=== PATIENT | male | born 1975 | race Caucasian/White ===

== ENCOUNTER 2017-01-27 06:20 | Inpatient (IN) | payer OTHER ==
[2017-01-26 11:19] VITALS: BMI 22.4
[~2017-01-27] VITALS: Ht 185.4 cm; Wt 76.2 kg
[2017-01-27] VITALS (26 sets, daily range): BP systolic 105–136; BP diastolic 56–71; PULSE 76–102; RESP 10–20; Ht 185.4 cm; Wt 76.2 kg
[~2017-01-27 06:20] MED LIST: CEFAZOLIN 2 GM/50 ML (PMX) 50 ML IVPB SCH; LACTATED RINGER'S 1,000 ML IV* SCH
[2017-01-27] MEDS ORDERED: ALPR0.5T PO (07:12)
[2017-01-27] MEDS ORDERED: TRAM50TA2 PO (07:12)
[2017-01-27] MEDS ORDERED: HYDR-3605 PO (07:12)
--- NOTE | 2017-01-27 07:42 | HPN ---
Date/Time of Note Date/Time of Note DATE: 01/27/17 TIME: 07:42 Interval H&P Admission Note Pt. seen H&P reviewed: No system changes ERNST LEW MD Jan 27, 2017 07:42
[2017-01-27] MEDS ORDERED: CEFAZOLIN 1 GM INJ ONE ×6 (07:45→16:36)
[2017-01-27] MEDS ORDERED: GELATIN SIZE 100 SPONGE ONE ×2 (07:45→10:00)
[2017-01-27] MEDS ORDERED: THROMBIN 5000 UNIT VIAL ONE ×3 (07:46→10:00)
[2017-01-27] MEDS ORDERED: HEPARIN 1000 UNITS/ML 10 ML INJ ONE (07:46)
[2017-01-27] MEDS ORDERED: SUCCINYLCHOLINE CHLORIDE 100 MG/5 ML SYG IV ONE (08:21)
[2017-01-27] MEDS ORDERED: LIDOCAINE 2% (SDV) 5 ML INJ ONE (08:21)
[2017-01-27] MEDS ORDERED: MIDAZOLAM 1 MG/ML 2 ML INJ ONE ×2 (08:21→17:57)
[2017-01-27] MEDS ORDERED: FENTAnyl 50 MCG/ML VIAL ONE ×4 (08:21→17:24)
[2017-01-27] MEDS ORDERED: PROPOFOL 20 ML ONE ×2 (08:21→10:28)
[2017-01-27] MEDS ORDERED: OCULAR LUBRICANT 3.5 GM OPH OINT ONE (08:30)
[2017-01-27] MEDS ORDERED: ACETAMINOPHEN 1000MG/100ML IV 100 ML ONE (09:02)
[2017-01-27] MEDS ORDERED: METOCLOPRAMIDE 10 MG INJ ONE (09:05)
[2017-01-27] MEDS ORDERED: HYDROmorphONE 2 MG/ML SYG ONE ×3 (09:05→17:47)
[2017-01-27] MEDS ORDERED: DEXAMETHASONE 4 MG/ML 1 ML INJ ONE (09:05)
[2017-01-27] MEDS ORDERED: ONDANSETRON 4 MG INJ ONE ×2 (09:05→16:41)
[2017-01-27] MEDS ORDERED: KETAMINE 500 MG INJ ONE (09:13)
[2017-01-27] MEDS ORDERED: hydrALAzine 20 MG INJ ONE ×2 (09:20→17:28)
[2017-01-27] MEDS ORDERED: METOPROLOL 5 MG INJ ONE ×2 (09:20→16:37)
[2017-01-27] MEDS ORDERED: ROCURONIUM 50 MG INJ ONE ×2 (09:25→12:10)
[2017-01-27] MEDS ORDERED: METHADONE (1 MG/1 ML PO SYG) PO SCH (10:00)
[2017-01-27] MEDS ORDERED: METHADONE (1 MG/ML 5 ML PO UD SYG) PO ONE (10:00)
[2017-01-27] MEDS ORDERED: FAMOTIDINE 20 MG INJ ONE (10:08)
[2017-01-27] MEDS ORDERED: BUPIVACAINE 0.5%/EPI (SDV) 30 ML INJ ONE ×2 (13:09→15:14)
[2017-01-27] MEDS ORDERED: hydrALAzine 20 MG INJ IV PRN (16:00)
[2017-01-27] MEDS ORDERED: PROCHLORPERAZINE 10 MG INJ IV PRN (16:00)
[2017-01-27] MEDS ORDERED: MIDAZOLAM 1 MG/ML 2 ML INJ IV PRN (16:00)
[2017-01-27] MEDS ORDERED: HYDROmorphONE (0.2 MG/ML) 10ML SYG IV PRN ×3 (16:00)
[2017-01-27] MEDS ORDERED: oxyCODONE 5 MG TAB PO PRN ×2 (16:00)
[2017-01-27] MEDS ORDERED: LABETALOL HCL 20MG INJ IV PRN (16:00)
[2017-01-27] MEDS ORDERED: EPHEDrine SULFATE 50 MG/5 ML SYG IV PRN (16:00)
[2017-01-27] MEDS ORDERED: MEPERIDINE 25 MG INJ IV PRN (16:00)
[2017-01-27] MEDS ORDERED: ONDANSETRON 4 MG INJ IV PRN ×2 (16:00→18:30)
[2017-01-27] MEDS ORDERED: METOCLOPRAMIDE 10 MG INJ IV PRN (16:00)
[2017-01-27] MEDS ORDERED: LORAZEPAM 2 MG INJ IV PRN ×2 (16:00→21:30)
[2017-01-27] MEDS ORDERED: DIPHENHYDRAMINE 50 MG INJ IV PRN (16:00)
--- NOTE | 2017-01-27 17:10 | RADRPT ---
PROCEDURE: Intraoperative imaging of the lumbar spine with fluoroscopy. CLINICAL INDICATION: Back pain. Intraoperative. TECHNIQUE: 8 images of the lumbar spine were obtained in the operating room with an image intensif ier. No radiologist was in attendance. Fluoroscopy time is 415 seconds. COMPARISON: No prior study is available for comparison. FINDINGS: For the purposes of this report, the last apparent true disc level is considered to be L5-S1. Based on this, images demonstrate pedicle screws and connecting rods at L3, L4, L5, and S1. Anterior scre ws are also present and L3-4, L4-5, and L5-S1. IMPRESSION: 1. Intraoperative imaging of the lumbar spine. 2. Anterior and posterior fusion at L3 - L4 - L5 - S1. RPTAT: QQ .Benigno Sabillon MD, Date Time Electronically viewed and signed by .Benigno Sabillon MD, on 01/27/2017 17:10 .R/
[2017-01-27] MEDS ORDERED: HYDROmorphONE 0.2 MG/ML PCA ONE (18:06)
[2017-01-27] MEDS: HYDROmorphONE 0.2 MG/ML PCA IV SCH (18:18)
[2017-01-27] MEDS ORDERED: NALOXONE (0.4 MG/ML) INJ IV PRN (18:30)
[2017-01-27] MEDS ORDERED: PROCHLORPERAZINE 10 MG TAB PO PRN (18:30)
[2017-01-27] MEDS ORDERED: ACETAMINOPHEN 325 MG TAB PO PRN (18:30)
[2017-01-27] MEDS ORDERED: NACL 0.9% 3 ML SYG IV SCH (18:30)
[2017-01-27] MEDS: FENTAnyl 50 MCG/ML VIAL IV PRN ×4 (18:37→19:09)
--- NOTE | 2017-01-27 18:42 | OPR ---
Date/Time of Note Date/Time of Note DATE: 01/27/17 TIME: 18:10 Operative Report Free Text/Dictation DATE OF OPERATION: 01/27/2017 PREOPERATIVE DIAGNOSES: 1. L3-4 severe degenerative disk disease 2. L4-5 severe degenerative disk disease with spinal stenosis with bilateral L4 and L5 radiculopathy 3. L5-S1 severe degenerative disk disease with severe Right greater than Left foraminal stenosis with L5 radiculopathy POSTOPERATIVE DIAGNOSES: 1. L3-4 severe degenerative disk disease 2. L4-5 severe degenerative disk disease with spinal stenosis with bilateral L4 and L5 radiculopathy 3. L5-S1 severe degenerative disk disease with severe Right greater than Left foraminal stenosis with L5 radiculopathy OPERATION PERFORMED: 1. Anterior lumbar interbody fusion via retroperitoneal approach L3-4 2. Placement of anterior interbody device L3-4 3. Placement of posterior spinal segmental instrumentation L3-4 4. Posterior spinal fusion L3-4 5. Anterior lumbar interbody fusion via retroperitoneal approach L4-5 6. Placement of anterior interbody device L4-5 7. Placement of posterior spinal segmental instrumentation L4-5 8. Posterior spinal fusion L4-5 9. Anterior lumbar interbody fusion via retroperitoneal approach L5-S1 10. Placement of anterior interbody device L5-S1 11. Placement of posterior spinal segmental instrumentation L5-S1 12. Posterior spinal fusion L5-S1 13. Use of morselized allograft bone and small BMP INSTRUMENTATION: 1. Synfix Jong Stand alone PEEK Cage 12mm height x 31mm / 10 degrees lordosis (L3 -4) 2. 4.0mm self drilling screws 25mm length x 2 (cranial); 4.0mm self drilling screws 20mm length x2 (caudal) 3. Synfix Jong Stand alone PEEK Cage 10.5mm height x 31mm / 10 degrees lordosis ( L4-5) 4. 4.0mm self drilling screws 25mm length x 4 5. Synfix Jong Stand alone PEEK Cage 12mm height x 28mm / 14 degrees lordosis (L5 -S1) 6. 4.0mm self drilling screws 25mm length x 4 7. Medium BMP with use of morselized allograft bone 8. NuVasive Reline MAS system percutaneous screws: L3 and L4; 6.5mm x50mm x4, L5 and S1 6.5 x 40mm x 4 9. 90mm rods x 2; set screws x 8 ANAESTHESIA: General Endotracheal ESTIMATED BLOOD LOSS: 600 mL COMPLICATIONS: None SURGEON: Ernst Lew MD VASCULAR ACCESS SURGEON: Fortunato Jo MD SURGICAL INDICATION: The patient is a 41 year-old male who presents with an increasing history of back and bilateral leg pain. The patient was found to have severe degenerative disk disease with spinal stenosis from L3-S1. The patient had failed conservative treatments. Risks, benefits and alternatives to an anterior and posterior spinal fusion with instrumentation were explained to the patient including but not exclusive of bleeding, infection, visceral injury , nerve injury, nonunion, instrumentation failure, lack of symptom relief, myocardial infarction, stroke, and pulmonary embolism, and they wished to proceed. PROCEDURE IN DETAIL: The patient was identified in the preoperative area and taken to the operating room. Rapid induction of general endotracheal anesthesia was performed. Patient was given 2 g of cefazolin for prophylaxis. The patient was positioned in the supine position on the operative table. All bony prominences were well padded. The patient's abdomen and left flank were prepped and draped in the usual sterile fashion. A longitudinal skin incision was made from the L3-S1 levels by our vascular surgeon Dr. Jo. After the exposure was completed, I first performed a L5-S1 diskectomy. The disc was incised using a sharp 15 mm blade. I then used a gamez elevator to loosen the disk material from the superior and inferior endplates. I then used a rongeur to remove the disc material and a series of curved and straight curettes to evacuate the disc space. I also used a series of pituitaries and kerrisons to ensure appropriate end plate preparation. Attention was placed to ensure removal of disk material to bleeding endplates without violation of the endplate. I then used the trial rasps to prepare and size the disc space and was able to place a 12 mm spacer with 14 degrees of lordosis. To ensure appropriate sizing of the inplant, I checked for fit and placement under C arm control and I felt the 14 degree lordotic 12 mm cage gained good lordosis and moravian of disc height and was an appropriate fit. I then inserted the Synfix PEEK 12mm cage after the trail. This cage was filled with BMP and morselized bone allograft. Four locking screws (4.0 x 25mm) were then placed using the guide under fluoroscopy . Additional morselized allograft was placed around and anterior to the cage in the disc space. I then performed a L4-L5 diskectomy. The disc was incised using a sharp 15 mm blade. I then used a gamez elevator to loosen the disk material from the superior and inferior endplates. I then used a rongeur to remove the disc material and a series of curved and straight curettes to evacuate the disc space. I also used a series of pituitaries and kerrisons to ensure appropriate end plate preparation. Attention was placed to ensure removal of disk material to bleeding endplates without violation of the endplate. I then used the trial rasps to prepare and size the disc space and was able to place a 10.5 mm spacer with 10 degrees of lordosis. To ensure appropriate sizing of the inplant, I checked for fit and placement under C arm control and I felt the 10 degree lordotic 10.5mm cage gained good lordosis and moravian of disc height and was an appropriate fit. I then inserted the Synfix PEEK 10.5mm cage after the trail. This cage was filled with BMP and morselized bone allograft. Four locking screws (4.0 x 25mm) were then placed using the guide under fluoroscopy . Additional morselized allograft was placed around and anterior to the cage in the disc space. I then performed a L3-L4 diskectomy. The disc was incised using a sharp 15 mm blade. I then used a gamez elevator to loosen the disk material from the superior and inferior endplates. I then used a rongeur to remove the disc material and a series of curved and straight curettes to evacuate the disc space. I also used a series of pituitaries and kerrisons to ensure appropriate end plate preparation. Attention was placed to ensure removal of disk material to bleeding endplates without violation of the endplate. I then used the trial rasps to prepare and size the disc space and was able to place a 12mm spacer with 10 degrees of lordosis. To ensure appropriate sizing of the implant, I checked for fit and placement under C arm control and I felt the 10 degree lordotic 12mm cage gained good lordosis and moravian of disc height and was an appropriate fit. I then inserted the Synfix PEEK 12mm cage after the trail. This cage was filled with BMP and morselized bone allograft. Four locking screws (4.0 x 20mm caudally and 4.0mm x25mm cranially) were then placed using the guide under fluoroscopy . Additional morselized allograft was placed around and anterior to the cage in the disc space. The wound was irrigated. X-rays were taken to check for instruments. The wound was then closed by our vascular access surgeon in standard technique. The posterior rectus sheath and anterior rectus sheath were both repaired. Sterile dressing was then placed. Attention was then turned toward placement of posterior spinal segmental instrumentation from L3-S1 after the patient was flipped carefully to the prone position. All bony prominences were well padded. The patient's lumbar spine was then prepped and draped in sterile fashion. Using intraoperative fluoroscopy, the pedicles were identified at each level from L3-S1. Care was taken to alter the fluoroscopic view to have a true AP and lateral at each level from L3-S1. Jamshidi needles were then passed down to the lateral aspect of the pedicles through stab incisions. The Jamshidi needles were malleted into the pedicles. These were also performed under EMG guidance. Care was taken to ensure that the needles did not pass the medial wall of the pedicle on the AP view prior to checking that the needle was past the posterior wall of the vertebral body. The needles were then malleted further into the vertebral bodies themselves. Guidewires were passed through the needles and the needles were removed. Taps were applied over the guidewires. Screws were then placed bilaterally into the vertebral bodies. AP and lateral views confirmed appropriate placement of the instrumentation. Attention was turned toward the posterior spinal fusion at L3-S1. Rods were selected of the appropriate length and placed into the screw heads. End caps were applied and final tightening was performed using a [id number]-[id number]-awamor wrench. The exposed the facet joints were decorticated. A small remaining amount of allograft was placed into the facet joints to facilitate the posterior fusion. The wound was irrigated copiously using normal saline. The fascia was then closed using 1 Vicryl in interrupted fashion. Subcutaneous tissue was closed using 2-0 Vicryl in interrupted fashion. Skin was closed using a running 4-0 Monocryl stitch. The wounds were dressed using Dermabond, sterile gauze and Tegaderm. The patient was returned to the supine position. The patient was extubated immediately postoperatively and taken to the recovery room in stable condition. Patient tolerated the procedure well and left the operating room in stable condition Preoperative Diagnosis 1. L3-4 severe degenerative disk disease 2. L4-5 severe degenerative disk disease with spinal stenosis with bilateral L4 and L5 radiculopathy 3. L5-S1 severe degenerative disk disease with severe Right greater than Left foraminal stenosis with L5 radiculopathy Postoperative Diagnosis 1. L3-4 severe degenerative disk disease 2. L4-5 severe degenerative disk disease with spinal stenosis with bilateral L4 and L5 radiculopathy 3. L5-S1 severe degenerative disk disease with severe Right greater than Left foraminal stenosis with L5 radiculopathy Surgeon see signature line Morning Nanny Dr. Jo Anesthesia Type: general Estimated Blood Loss: other Transfusion 250 mL of cell saver Specimen None Grafts/Implants none Complications none Pt Condition Post Procedure: stable Disposition: PACU Procedure Description PROCEDURE IN DETAIL: The patient was identified in the preoperative area and taken to the operating room. Rapid induction of general endotracheal anesthesia was performed. Patient was given 2 g of cefazolin for prophylaxis. The patient was positioned in the supine position on the operative table. All bony prominences were well padded. The patient's abdomen and left flank were prepped and draped in the usual sterile fashion. A longitudinal skin incision was made from the L3-S1 levels by our vascular surgeon Dr. Jo. After the exposure was completed, I first performed a L5-S1 diskectomy. The disc was incised using a sharp 15 mm blade. I then used a gamez elevator to loosen the disk material from the superior and inferior endplates. I then used a rongeur to remove the disc material and a series of curved and straight curettes to evacuate the disc space. I also used a series of pituitaries and kerrisons to ensure appropriate end plate preparation. Attention was placed to ensure removal of disk material to bleeding endplates without violation of the endplate. I then used the trial rasps to prepare and size the disc space and was able to place a 12 mm spacer with 14 degrees of lordosis. To ensure appropriate sizing of the implant, I checked for fit and placement under C arm control and I felt the 14 degree lordotic 12 mm cage gained good lordosis and moravian of disc height and was an appropriate fit. I then inserted the Synfix PEEK 12mm cage after the trail. This cage was filled with BMP and morselized bone allograft. Four locking screws (4.0 x 25mm) were then placed using the guide under fluoroscopy . Additional morselized allograft was placed around and anterior to the cage in the disc space. I then performed a L4-L5 diskectomy. The disc was incised using a sharp 15 mm blade. I then used a gamez elevator to loosen the disk material from the superior and inferior endplates. I then used a rongeur to remove the disc material and a series of curved and straight curettes to evacuate the disc space. I also used a series of pituitaries and kerrisons to ensure appropriate end plate preparation. Attention was placed to ensure removal of disk material to bleeding endplates without violation of the endplate. I then used the trial rasps to prepare and size the disc space and was able to place a 10.5 mm spacer with 10 degrees of lordosis. To ensure appropriate sizing of the implant, I checked for fit and placement under C arm control and I felt the 10 degree lordotic 10.5mm cage gained good lordosis and moravian of disc height and was an appropriate fit. I then inserted the Synfix PEEK 10.5mm cage after the trail. This cage was filled with BMP and morselized bone allograft. Four locking screws (4.0 x 25mm) were then placed using the guide under fluoroscopy . Additional morselized allograft was placed around and anterior to the cage in the disc space. I then performed a L3-L4 diskectomy. The disc was incised using a sharp 15 mm blade. I then used a gamez elevator to loosen the disk material from the superior and inferior endplates. I then used a rongeur to remove the disc material and a series of curved and straight curettes to evacuate the disc space. I also used a series of pituitaries and kerrisons to ensure appropriate end plate preparation. Attention was placed to ensure removal of disk material to bleeding endplates without violation of the endplate. I then used the trial rasps to prepare and size the disc space and was able to place a 12mm spacer with 10 degrees of lordosis. To ensure appropriate sizing of the implant, I checked for fit and placement under C arm control and I felt the 10 degree lordotic 12mm cage gained good lordosis and moravian of disc height and was an appropriate fit. I then inserted the Synfix PEEK 12mm cage after the trail. This cage was filled with BMP and morselized bone allograft. Four locking screws (4.0 x 20mm caudally and 4.0mm x25mm cranially) were then placed using the guide under fluoroscopy . Additional morselized allograft was placed around and anterior to the cage in the disc space. The wound was irrigated. X-rays were taken to check for instruments. The wound was then closed by our vascular access surgeon in standard technique. The posterior rectus sheath and anterior rectus sheath were both repaired. Sterile dressing was then placed. Attention was then turned toward placement of posterior spinal segmental instrumentation from L3-S1 after the patient was flipped carefully to the prone position. All bony prominences were well padded. The patient's lumbar spine was then prepped and draped in sterile fashion. Using intraoperative fluoroscopy, the pedicles were identified at each level from L3-S1. Care was taken to alter the fluoroscopic view to have a true AP and lateral at each level from L3-S1. Jamshidi needles were then passed down to the lateral aspect of the pedicles through stab incisions. The Jamshidi needles were malleted into the pedicles. These were also performed under EMG guidance. Care was taken to ensure that the needles did not pass the medial wall of the pedicle on the AP view prior to checking that the needle was past the posterior wall of the vertebral body. The needles were then malleted further into the vertebral bodies themselves. Guidewires were passed through the needles and the needles were removed. Taps were applied over the guidewires. Screws were then placed bilaterally into the vertebral bodies. AP and lateral views confirmed appropriate placement of the instrumentation. Attention was turned toward the posterior spinal fusion at L3-S1. Rods were selected of the appropriate length and placed into the screw heads. End caps were applied and final tightening was performed using a [id number] wrench. The exposed the facet joints were decorticated. A small remaining amount of allograft was placed into the facet joints to facilitate the posterior fusion. The wound was irrigated copiously using normal saline. The fascia was then closed using 1 Vicryl in interrupted fashion. Subcutaneous tissue was closed using 2-0 Vicryl in interrupted fashion. Skin was closed using a running 4-0 Monocryl stitch. The wounds were dressed using Dermabond, sterile gauze and Tegaderm. The patient was returned to the supine position. The patient was extubated immediately postoperatively and taken to the recovery room in stable condition. Patient tolerated the procedure well and left the operating room in stable condition. ERNST LEW MD Jan 27, 2017 18:39
[2017-01-27] MEDS ORDERED: VITAMIN A & D 5 GM OINT PACKET TOP ONE (20:17)
[2017-01-27] MEDS: oxyCODONE (CR) 10 MG TAB [oxyCONTIN] PO SCH (21:19)
[2017-01-27 21:36] LABS: ABNORMAL IP MESSAGE 1; HEMATOCRIT 39.5 % (42.0-52.0); HEMOGLOBIN 13.6 g/dl (14.0-18.0); MEAN CORPUSCULAR HEMOGLOBIN 31.2 pg (29.0-33.0); MEAN CORPUSCULAR HGB CONC 34.4 g/dl (32.0-37.0); MEAN CORPUSCULAR VOLUME 90.6 fl (82.0-101.0); MEAN PLATELET VOLUME 10.6 fl (7.4-10.4); PLATELET COUNT 314 10^3/UL (140-415); POSITIVE DIFF @See below; RED BLOOD COUNT 4.36 10^6/ul (4.70-6.10); RED CELL DISTRIBUTION WIDTH 13.2 % (11.5-14.5); WHITE BLOOD COUNT 26.7 10^3/ul (4.8-10.8)
[2017-01-27 21:52] LABS: CALCIUM 8.2 mg/dl (8.4-10.2); CREATININE 0.87 mg/dl (0.61-1.24)
[2017-01-27] MEDS: ACETAMINOPHEN 1000MG/100ML IV 100 ML IVPB SCH (22:14)
[2017-01-27] MEDS: ALPRAZOLAM 0.5 MG TAB PO PRN (22:17)
[2017-01-27] MEDS: ALBUTEROL/IPRATROPIUM (NEB) 3 ML AMP HHN PRN (22:44)
[2017-01-27 23:01] LABS: BURR CELLS 2+; LYMPHOCYTES # 1.1 10^3/ul (0.8-2.9); MONOCYTE # 0.8 10^3/ul (0.3-0.9); MONOCYTES % (M) 3 % (0-11)
[2017-01-28] MEDS: CEFAZOLIN 1 GM/50 ML (PMX) 50 ML IVPB SCH ×4 (00:37→17:24)
[2017-01-28] MEDS: HYDROmorphONE 0.2 MG/ML PCA IV SCH ×3 (01:10→11:28)
--- NOTE | 2017-01-28 04:32 | OPR ---
DATE OF OPERATION: PREOPERATIVE DIAGNOSIS: Degenerative disk disease, lumbosacral spine. POSTOPERATIVE DIAGNOSIS: Degenerative disk disease, lumbosacral spine. OPERATION PERFORMED: 1. Anterior retroperitoneal exposure and interbody fusion L3 to L4. 2. Anterior retroperitoneal exposure and interbody fusion L4 to L5. 3. Anterior retroperitoneal exposure and interbody fusion L5 to S1. SURGEON: Brittany Cardona MD. CO-SURGEON: Hakeem Armenta MD. INDICATIONS: Risks, benefits, complications, alternative therapies explained to the patient and the family. Consent obtained. Risks and benefits have been explained to them included but not limited to bleeding, infection, damage to the bowel, damage to ureter, wound infection, wound dehiscence, r etrograde ejaculation, sexual dysfunction, need for further surgeries, DVT, PE and others. All ques tions answered. DESCRIPTION OF PROCEDURE: The patient was placed in supine position, prepped and draped in usual st erile fashion. I made a 10 cm incision left lower quadrant to the left of the umbilicus. Incision was taken down to the subcutaneous tissue which was opened using electrocautery. Left anterior rect us sheath was opened using electrocautery in the direction of the wound. Posterior rectus sheath wa s incised superiorly about 3 cm. Retroperitoneal space was entered. The retractor was placed retra cting the bowel contents to the right and left to the left. I dissected the left common iliac artery and vein. The middle sacral vessel was ligated using titanium clips. The left iliolumbar v ein the lowest vessels were ligated using titanium clips. Exposure for L3 to L4 and L4 to L5 was obtained by retracting the left common iliac artery and vena cava and aorta to the right. Expos ure for L5 to S1 was obtained by retracting the right common iliac artery and vein to the right, lef t common iliac artery and vein to the left. We proceeded to the diskectomy and placed another new c age. Please refer to Dr. Armenta's dictation for details of the operation. After all the x-rays were satisfactorily ready, the needle count and sponge count was correct. The wound was irrigated u sing antibiotic solution. There was good pulsation in the left externa iliac artery. Posterior rec tus sheath was closed using 0 Vicryl suture in a running fashion. Anterior rectus sheath was closed using #1 interrupted suture in a running fashion with interrupted sutures in the middle. The wound was irrigated and closed in 2 layers of 3-0 Vicryl suture for subq and Steri-Strips for the skin. The patient tolerated the procedure well. Dictated By: BRITTANY BELLE/SANDRA Conf#: [id number] DID#: [id number]
[2017-01-28] MEDS: ACETAMINOPHEN 1000MG/100ML IV 100 ML IVPB SCH ×3 (05:23→21:37)
[2017-01-28 06:09] VITALS: BP 125/68; RESP 18
[2017-01-28 07:35] VITALS: BP 128/67; RESP 17
[2017-01-28] MEDS: oxyCODONE (CR) 10 MG TAB [oxyCONTIN] PO SCH ×2 (08:26→20:18)
[2017-01-28] MEDS: ALBUTEROL/IPRATROPIUM (NEB) 3 ML AMP HHN PRN (08:58)
--- NOTE | 2017-01-28 09:28 | CONS ---
Date/Time of Note Date/Time of Note DATE: 01/28/17 TIME: 09:23 Assessment/Plan Assessment/Plan Problems: (1) Anxiety disorder Status: Chronic Comment: He has been on long-term Xanax. His dosage is very but he has 0.5 mg pills that he splits. As he describes he takes a total of 0.75 mg a day. Given the chronicity of this trying to take him off would be less advantageous at this moment. We will put him on 0.25 every 8 hours with some as needed to be used in the background if necessary. In addition I will place him on duloxetine both for its antianxiety and antidepressant mechanisms as well as his chronic pain usage in this setting. Please note his been using hydrocodone at home somewhere between 4 and 12 tablets of 5 mg a day. We will adjust her pain management based on the above. Qualifiers: Qualified Code: F41.1 - Generalized anxiety disorder (2) Benzodiazepine dependence Status: Chronic Comment: As noted above. (3) S/P lumbar spinal fusion Onset Date: ~ 01/27/2017 Status: Acute Comment: He is postoperative. This time we have counseled him on a physical activity as well as using incentive spirometer. Recheck a CBC in the morning. Consultation Date/Type/Reason Admit Date/Time Jan 27, 2017 at 06:20 Date of Consultation: Jan 28, 2017 Type of Consultation: Internal medicine Reason for Consultation Postop assistance after extensive back surgery Referring Provider: ERNST LEW MD Hx of Present Illness Otherwise healthy 41-year-old single male with chronic back pain and due to his extensive arthritis with radicular symptoms. He is status post anterior and posterior lumbar spinal fusion L3-S1 yesterday. At this time he has had some degree of cough, and his anxiety is active. Constitutional: no complaints (Denies fevers chills or sweats) Eyes: no complaints ENT: no complaints Respiratory: cough Cardiovascular: no complaints Gastrointestinal: no complaints Genitourinary: no complaints Musculoskeletal: no complaints Neurologic: no complaints Lymphatic: no complaints Past Medical History Medical History: other (Lumbar disc disease with radicular symptoms and spinal stenosis; anxiety disorder; long-term usage of benzodiazepine; long-term usage narcotics;) Past Surgical History Past Surgical Hx: noncontributory Family History Significant Family History: no pertinent family hx Social History Alcohol Use: none Smoking Status: Former smoker Drug Use: none Exam/Review of Systems Vital Signs Vitals Vital Signs Date Time Temp Pulse Resp B/P Pulse Ox O2 Delivery O2 Flow Rate FiO2 01/28/17 09:02 98 3.0 01/28/17 09:01 78 20 01/28/17 07:35 98.7 128/67 01/27/17 23:05 Nasal Cannula Intake and Output 01/27/17 01/27/17 01/28/17 15:00 23:00 07:00 Intake Total 250 ml 2950 ml 700 ml Output Total 1200 ml 1200 ml Balance 250 ml 1750 ml -500 ml Exam Constitutional: alert, oriented Psych: anxiety Head: atraumatic, normocephalic Eyes: EOMI, nl conjunctiva, nl lids, nl sclera Neck: non-tender, supple Respiratory: clear to auscultation, normal air movement Cardiovascular: nl pulses, regular rate and rhythm Gastrointestinal: nl liver, spleen, non-tender, soft Musculoskeletal: nl extremities to inspection, nl gait and stance Neurological: CASTING TECHNICIAN II-XII intact, nl mental status, nl speech, nl strength Results Result Diagram: 01/27/17182401/27/171824 Results 24 hrs Laboratory Tests Test 01/27/17 18:25 White Blood Count 26.7 H Red Blood Count 4.36 L Hemoglobin 13.6 L Hematocrit 39.5 L Mean Corpuscular Volume 90.6 Mean Corpuscular Hemoglobin 31.2 Mean Corpuscular Hemoglobin Concent 34.4 Red Cell Distribution Width 13.2 Platelet Count 314 Mean Platelet Volume 10.6 H Segmented Neutrophils % (Manual) 92 H Band Neutrophils % (Manual) 1 Lymphocytes % (Manual) 4 L Monocytes % (Manual) 3 Nucleated Red Blood Cells % 0.0 Neutrophils # (Manual) 24.6 H Band Neutrophils # 0.2 Absolute Lymphocytes (Manual) 1.0 Lymphocytes # 1.1 Monocytes # 0.8 Absolute Monocytes (Manual) 0.8 Sodium Level 143 Potassium Level 4.0 Chloride Level 108 Carbon Dioxide Level 21 Anion Gap 18 H Blood Urea Nitrogen 11 Creatinine 0.87 Glucose Level 152 Calcium Level 8.2 L Medications Medications Current Medications Cefazolin Sodium (Ancef 1 Gm/50 ml (Pmx)) 50 ml @ 100 mls/hr Q6 IVPB Last administered on 01/28/17 06:08; Admin Dose 100 MLS/HR; Start 01/28/17 at 00: 00; Stop 01/28/17 at 18:29 Prochlorperazine (Compazine) 10 mg Q4H PRN PO NAUSEA AND/OR VOMITING; Start at 18:30 Ondansetron HCl (Zofran Inj) 4 mg Q6H PRN IV NAUSEA AND/OR VOMITING; Start at 18:30 Acetaminophen (Tylenol Tab) 650 mg Q4H PRN PO TEMP GREATER THAN 101F OR HOWARD; Start 01/27/17 at 18:30 Hydromorphone HCl (Dilaudid SWING TYPE LATHE OPERATOR) Q4PCA IV Last administered on 01/28/17 06: 39; Admin Dose 6 MG; Start 01/27/17 at 18:30 Naloxone HCl (Narcan) 0.2 mg Q2M PRN IV RR 8 BREATHS/MIN OR LESS; Start at 18:30 Alprazolam (Xanax) 0.5 mg Q12H PRN PO ANXIETY Last administered on 01/27/17 22:17; Admin Dose 0.5 MG; Start 01/27/17 at 18:30 Oxycodone HCl 10 mg 10 mg BID PO Last administered on 01/28/17 08:26; Admin Dose 10 MG; Start 01/27/17 at 21:00 Acetaminophen (Ofirmev 1000mg/ 100ml Iv) 100 ml @ 400 mls/hr Q8 IVPB Last administered on 01/28/17 05:23; Admin Dose 400 MLS/HR; Start 01/27/17 at 22: 00 Lorazepam (Ativan) 0.5 mg ONCE PRN IV PAIN Last administered on 01/28/17 01: 02; Admin Dose 0.5 MG; Start 01/27/17 at 21:30; Stop 01/28/17 at 21:29 COLT LISA MD Jan 28, 2017 09:28
[2017-01-28 09:37] LABS: HEMATOCRIT 35.7 % (42.0-52.0); HEMOGLOBIN 11.6 g/dl (14.0-18.0)
[2017-01-28 09:56] LABS: CALCIUM 8.2 mg/dl (8.4-10.2); CREATININE 0.71 mg/dl (0.61-1.24); POTASSIUM 3.6 mmol/L (3.5-5.1)
[2017-01-28] MEDS: DULOXETINE 30 MG CAP DR PO SCH (10:19)
[2017-01-28] MEDS: METHOCARBAMOL 500 MG TAB PO SCH ×3 (10:37→20:17)
[2017-01-28] MEDS ORDERED: HYDROmorphONE 1 MG/ML SYG IV STA ×2 (11:45→16:15)
[2017-01-28] MEDS ORDERED: HYDROmorphONE 0.2 MG/ML PCA IV SCH (12:00)
--- NOTE | 2017-01-28 12:05 | PN ---
DATE: 01/28/2017 SUBJECTIVE DATA: Patient is a 41-year-old male, who is currently postop day #1, status post L3-S1 anterior lumbar interbody fusion with posterior spinal instrumented fusion for lumbar degenerative disk disease, with spinal stenosis. Patient had no acute overnight events. He did have some coughing and some secretions. The respiratory therapist has been following the patient and he received a breathing treatment this morning. His pain is currently under adequate control with OxyContin 10 mg p.o. b.i.d. and Dilaudid PLASMA CUTTING MACHINE OPERATOR. The Medicine Service is following this patient during this inpatient admission. OBJECTIVE DATA: VITAL SIGNS: Patient's T-max is 98.7. His blood pressure is 128/67. His heart rate is 81. He has been satting between 98 percent to 100 percent on 2-3 L nasal cannula. GENERAL: He is alert and oriented x3, in no acute distress. SPINE: Patient has 5/5 strength in the bilateral tibialis anterior, EHL, gastrocnemius soleus. He has 4+/5 strength in bilateral knee extensors. He has 4/5 strength in the right hip flexor, 4-/5 strength in the left hip flexor. Gross sensation to light touch is intact in the L3-S1 nerve root distributions. His anterior and posterior surgical dressings are clean, dry and intact. ABDOMEN: His abdomen is mildly distended, but soft. He has some hypoactive bowel sounds. LABORATORY AND DIAGNOSTIC DATA: His white count is elevated at 26.7, likely secondary to stress response, his H and H are stable at 13.6/39.8, his platelets are 314. His electrolytes are within normal limits. ASSESSMENT AND PLAN: Patient is a 41-year-old male, who is currently postop day #1, status post anterior lumbar interbody fusion, L3-S1, with posterior spinal instrumented fusion for lumbar degenerative disk disease with spinal stenosis. PLAN: 1. Patient with lumbosacral orthosis and is scheduled to begin physical therapy today and will be weightbearing as tolerated. 2. Once patient is able to pass gas, we will advance his diet from clears to a regular diet. 3. We will continue pain management with a PLASMA CUTTING MACHINE OPERATOR and OxyContin 10 mg p.o. b.i.d. If patient does well today, we will discontinue the PLASMA CUTTING MACHINE OPERATOR tomorrow. 4. Until the patient becomes adequately ambulatory after working with Physical Therapy, we will continue the Locke catheter and likely discharge/discontinue the Locke catheter tomorrow. We have the Medicine Service following and for muscle spasms, we have started the patient on Robaxin. We will continue to monitor this patient closely. 5. follow-up CBC in am 6. CT Lumbar spine to evaluate post-op instrumentation Dictated By: Hakeem Armenta MD /hi/myrtle /Document#: [id number] MTDD
[2017-01-28] MEDS ORDERED: METHOCARBAMOL 500 MG TAB PO SCH (13:00)
[2017-01-28 14:00] VITALS: BP 133/76; RESP 20
[2017-01-28] MEDS: ALPRAZOLAM 0.25 MG TAB PO SCH ×2 (14:56→22:00)
[2017-01-28] MEDS ORDERED: LORAZEPAM 2 MG INJ IV PRN (15:00)
--- NOTE | 2017-01-28 17:58 | RADRPT ---
AMENDMENT: 01/28/2017 6:10:45 PM Greg Liu D.o Images are reviewed and discussed by telephone with Dr. Armenta and 18:09. All of the transpedicul ar screws, including at L3 on the left, are in excellent position entirely within the bone and do no t cross or breech any foramina. PROCEDURE: CT Lumbar Spine without contrast. CLINICAL INDICATION: Low back pain following surgery and 01/27/2017. TECHNIQUE: CT of the lumbar spine without contrast was performed. Axial images were obtained [facility] the lumbar spine and reformatted at 2.5 mm slice thickness. Coronal and sagittal images were ref ormatted. One or more of the following dose reduction techniques were used: Automated exposure cont rol, adjustment of the mA and/or kV according to patient size, use of iterative reconstruction techn ique. The CTDIvol = 28.21 mGy and DLP = 866.17 mGy-cm. COMPARISON: Intraoperative x-ray exposures 01/27/2017 FINDINGS: Vertebral bodies: Stature and mineralization are preserved at every level. The lordosis is intact. T ranspedicular screws and posterior bridging fusion hardware is present at L3, L4, L5 and S1, the scr ews in good positions and without findings to suggest hardware loosening or failure. In addition, th ere are interbody grafts with anterior obliquely oriented screws at the L3-4, L4-5 and L5-S1 levels. Conus medularis region: Normal in attenuation and termination estimated at the L1 level. T12-L1: No discogenic abnormality of significance is seen. There is no facet arthropathy. The centr al canal is patent. There is no evidence for foraminal stenosis. L1-L2: No discogenic abnormality of significance is seen. There is no facet arthropathy. The ligamen roselia flava are normal in thickness. The central canal is patent. There is no evidence for foraminal stenosis. L2-L3: No discogenic abnormality of significance is seen. There is no facet arthropathy. The ligamen roselia flava are normal in thickness. The central canal is patent. There is no evidence for foraminal stenosis. L3-L4: Endplate irregularity with interbody graft in good appearance, some degenerative cystic redmond es of the inferior L3 end plate are noted. There is trace bilateral facet arthropathy. The ligamentu m flava are normal in thickness. The central canal is patent. There is no evidence for foraminal s tenosis. L4-L5: Interbody graft and anterior as well as posterior fusion hardware in good radiographic appear ance and position. There is osteophyte and disc material extending into the foramina bilaterally. Th ere is no facet arthropathy. The ligamentum flava are normal in thickness. The central canal is pat ent. Osteophyte and disc complex causes minimal bilateral foraminal stenosis. L5-S1: Interbody graft with anterior posterior fusion hardware in satisfactory appearance. There is no facet arthropathy. The ligamentum flava are normal in thickness. The central canal is patent. O steophyte and disc material contribute to mild to moderate left greater than right foraminal stenosi s. Sacrum and sacroiliac joints: Posterior element screws are in good positions. The sacroiliac joints are unremarkable. None spine related findings: Postoperative gas in the posterior soft tissues is present without abno rmal collection. The visualized retroperitoneum is unremarkable aside from atherosclerotic calcifica tion of the aorta. RPTAT:HJJR IMPRESSION: 1. Interbody grafts with anterior and posterior fusion hardware from L3-S1 the findings within fabrizio l limits for recent surgery. 2. Osteophyte and disc complexes contributing to L5-S1 greater than L4-5 foraminal stenosis. 3. No evidence of significant central canal stenosis at any level. Physician Itzel Date Time Electronically viewed and signed by Physician Itzel on 01/28/2017 18:10 JR/
[2017-01-28] MEDS ORDERED: HYDROCODONE/APAP (5/325) TAB PO ONE (18:30)
[2017-01-28] MEDS ORDERED: HYDROCODONE/APAP (5/325) TAB PO PRN (18:30)
[2017-01-28] MEDS: HYDROmorphONE 0.5 MG/0.5 ML SYG IV PRN ×2 (19:16→22:02)
[2017-01-28 20:00] VITALS: BP 127/68; RESP 19
[2017-01-28] MEDS: ALPRAZOLAM 0.5 MG TAB PO PRN (21:27)
[2017-01-29] MEDS: HYDROmorphONE 0.5 MG/0.5 ML SYG IV PRN ×7 (01:10→23:23)
[2017-01-29] MEDS: ALPRAZOLAM 0.25 MG TAB PO SCH ×4 (01:13→21:36)
[2017-01-29 02:20] VITALS: BP 130/75; RESP 20
[2017-01-29] MEDS: HYDROCODONE/APAP (5/325) TAB PO PRN ×4 (02:33→19:37)
[2017-01-29 05:15] LABS: ABNORMAL IP MESSAGE 1; BASOPHILS % 0.2 % (0.0-2.0); EOSINOPHILS % 0.1 % (0.0-7.0); HEMATOCRIT 33.2 % (42.0-52.0); HEMOGLOBIN 11.2 g/dl (14.0-18.0); LYMPHOCYTES # 1.3 10^3/ul (0.8-2.9); LYMPHOCYTES % 8.3 % (15.0-51.0); MEAN CORPUSCULAR HEMOGLOBIN 30.5 pg (29.0-33.0); MEAN CORPUSCULAR HGB CONC 33.7 g/dl (32.0-37.0); MEAN CORPUSCULAR VOLUME 90.5 fl (82.0-101.0); MONOCYTE # 1.9 10^3/ul (0.3-0.9); MONOCYTES % 11.5 % (0.0-11.0); NEUTROPHIL # 12.8 10^3/ul (1.6-7.5); NEUTROPHILS % 79.4 % (39.0-77.0); PLATELET COUNT 195 10^3/UL (140-415); POSITIVE DIFF @See below; RED BLOOD COUNT 3.67 10^6/ul (4.70-6.10); WHITE BLOOD COUNT 16.1 10^3/ul (4.8-10.8)
[2017-01-29] MEDS: ACETAMINOPHEN 1000MG/100ML IV 100 ML IVPB SCH (05:18)
[2017-01-29 07:00] VITALS: BP 125/77; RESP 18
[2017-01-29] MEDS: DULOXETINE 30 MG CAP DR PO SCH (08:40)
[2017-01-29] MEDS: oxyCODONE (CR) 10 MG TAB [oxyCONTIN] PO SCH ×2 (08:41→21:33)
[2017-01-29] MEDS: METHOCARBAMOL 500 MG TAB PO SCH ×3 (08:41→21:32)
[2017-01-29] MEDS ORDERED: HYDROmorphONE 1 MG/ML SYG IV SCH (09:56)
[2017-01-29] MEDS ORDERED: HYDROmorphONE 2 MG/ML SYG IV SCH (10:07)
--- NOTE | 2017-01-29 12:04 | CONS ---
Date/Time of Note Date/Time of Note DATE: 01/29/17 TIME: 12:02 Assessment/Plan Assessment/Plan Chief Complaint/Hosp Course Otherwise healthy 41-year-old single male with chronic back pain and due to his extensive arthritis with radicular symptoms. He is status post anterior and posterior lumbar spinal fusion L3-S1 yesterday. At this time he has had some degree of cough, and his anxiety is active. Problems: (1) Anxiety disorder Status: Chronic Comment: He is stable and tolerating the duloxetine. Please note with usage of the regularly time benzodiazepines this is working. I would estimate in 2 weeks with continue duloxetine use the alprazolam can be reduced to 0.25 mg every 12 from 0.25 every 8 Qualifiers: Anxiety disorder type: generalized anxiety disorder Qualified Code: F41.1 - Generalized anxiety disorder (2) Benzodiazepine dependence Status: Chronic Comment: As above. (3) S/P lumbar spinal fusion Onset Date: ~ 01/27/2017 Status: Acute Comment: He does not appear to have any medical complications postoperatively. The significant issue here is his pain management. He actually has adequate pain control. At discharge she will need to go on a tapering dose of long- acting high potency narcotics such as methadone or MS Contin or OxyContin. He would then have shorter acting as needed drugs at a lower potency. Please note that we are stepping and replacing from when he was using 12 hydrocodone's a day preop Consultation Date/Type/Reason Admit Date/Time Jan 27, 2017 at 06:20 Initial Consult Date 01/28/17 Type of Consultation: Internal medicine Reason for Consultation Postoperative assistance after extensive spinal surgery anterior and posterior lumbar spinal fusion L3-S1 Referring Provider: ERNST LEW MD 24 HR Interval Summary Free Text/Dictation Patient reports his pain control is better although certainly not perfect. He denies any fevers chills or sweats. He denies cough he denies shortness of breath Constitutional: no complaints Detailed Summary ENT: no complaints Respiratory: no complaints Cardiovascular: no complaints Gastrointestinal: no complaints Genitourinary: no complaints Exam/Review of Systems Vital Signs Vitals Vital Signs Date Time Temp Pulse Resp B/P Pulse Ox O2 Delivery O2 Flow Rate FiO2 01/29/17 07:00 99.2 75 18 125/77 96 01/29/17 00:25 3.0 01/28/17 09:20 Nasal Cannula Intake and Output 01/28/17 01/28/17 01/29/17 15:00 23:00 07:00 Intake Total 50 ml 950 ml 1450 ml Output Total 1500 ml 1900 ml Balance 50 ml -550 ml -450 ml Exam Constitutional: alert, oriented Neck: non-tender, supple Respiratory: clear to auscultation, normal air movement Cardiovascular: nl pulses, regular rate and rhythm Results Result Diagram: 01/29/17 0438 01/28/17 0902 Results 24 hrs Laboratory Tests Test 01/29/17 04:38 White Blood Count 16.1 #H Red Blood Count 3.67 L Hemoglobin 11.2 L Hematocrit 33.2 L Mean Corpuscular Volume 90.5 Mean Corpuscular Hemoglobin 30.5 Mean Corpuscular Hemoglobin Concent 33.7 Red Cell Distribution Width 13.0 Platelet Count 195 # Mean Platelet Volume 10.0 Neutrophils % 79.4 H Lymphocytes % 8.3 L Monocytes % 11.5 H Eosinophils % 0.1 Basophils % 0.2 Nucleated Red Blood Cells % 0.0 Neutrophils # 12.8 H Lymphocytes # 1.3 Monocytes # 1.9 H Eosinophils # 0.0 Basophils # 0.0 Nucleated Red Blood Cells # 0.0 Medications Medications Current Medications Prochlorperazine (Compazine) 10 mg Q4H PRN PO NAUSEA AND/OR VOMITING; Start at 18:30 Ondansetron HCl (Zofran Inj) 4 mg Q6H PRN IV NAUSEA AND/OR VOMITING; Start at 18:30 Acetaminophen (Tylenol Tab) 650 mg Q4H PRN PO TEMP GREATER THAN 101F OR HOWARD; Start 01/27/17 at 18:30 Naloxone HCl (Narcan) 0.2 mg Q2M PRN IV RR 8 BREATHS/MIN OR LESS; Start at 18:30 Alprazolam (Xanax) 0.5 mg Q12H PRN PO ANXIETY Last administered on 01/28/17 21:27; Admin Dose 0.5 MG; Start 01/27/17 at 18:30 Duloxetine HCl (Cymbalta) 30 mg DAILY PO Last administered on 01/29/17 08:40 ; Admin Dose 30 MG; Start 01/28/17 at 09:30 Alprazolam (Xanax) 0.25 mg Q8 PO Last administered on 01/29/17 05:22; Admin Dose 0.25 MG; Start 01/28/17 at 14:00 Methocarbamol (Robaxin) 500 mg TID PO Last administered on 01/29/17 08:41; Admin Dose 500 MG; Start 01/28/17 at 11:00 Oxycodone HCl (Oxycontin) 20 mg BID PO Last administered on 01/29/17 08:41; Admin Dose 20 MG; Start 01/28/17 at 21:00 Acetaminophen/ Hydrocodone Bitart ([place] (5/325)) 1 tab Q4H PRN PO PAIN LEVEL 1 -5 Last administered on 01/28/17 20:19; Admin Dose 1 TAB; Start 01/28/17 at 18:30 Acetaminophen/ Hydrocodone Bitart ([place] (5/325)) 2 tab Q4H PRN PO PAIN LEVEL 6 -10 Last administered on 01/29/17 11:10; Admin Dose 2 TAB; Start 01/28/17 at 18:30 Hydromorphone HCl (Dilaudid) 1 mg Q3H PRN IV SEVERE PAIN LEVEL 7-10 Last administered on 01/29/17 07:03; Admin Dose 1 MG; Start 01/28/17 at 18:30 COLT LISA MD Jan 29, 2017 12:04
[2017-01-29 14:00] VITALS: BP 137/82; RESP 18
[2017-01-29] MEDS: ALPRAZOLAM 0.5 MG TAB PO PRN (17:12)
[2017-01-29 19:35] VITALS: BP 121/68; RESP 17
[2017-01-30] MEDS: HYDROCODONE/APAP (5/325) TAB PO PRN ×6 (01:31→23:06)
[2017-01-30] MEDS: HYDROmorphONE 0.5 MG/0.5 ML SYG IV PRN ×7 (03:15→23:37)
[2017-01-30] MEDS: ALPRAZOLAM 0.25 MG TAB PO SCH ×3 (05:15→23:06)
[2017-01-30 08:00] VITALS: BP 114/70; RESP 18
[2017-01-30] MEDS: DULOXETINE 30 MG CAP DR PO SCH (08:26)
[2017-01-30] MEDS: METHOCARBAMOL 500 MG TAB PO SCH ×3 (08:27→20:17)
[2017-01-30] MEDS: oxyCODONE (CR) 10 MG TAB [oxyCONTIN] PO SCH ×2 (08:27→21:00)
[2017-01-30 14:00] VITALS: BP 110/69; RESP 18
--- NOTE | 2017-01-30 14:02 | CONS ---
Date/Time of Note Date/Time of Note DATE: 01/30/17 TIME: 14:00 Assessment/Plan Assessment/Plan Chief Complaint/Hosp Course Otherwise healthy 41-year-old single male with chronic back pain and due to his extensive arthritis with radicular symptoms. He is status post anterior and posterior lumbar spinal fusion L3-S1 yesterday. At this time he has had some degree of cough, and his anxiety is active. Problems: (1) S/P lumbar spinal fusion Onset Date: ~ 01/27/2017 Status: Acute Comment: He is progressing along steadily. He however is not progressing quite as fast as we might have hoped although certainly still at a reasonable pace. Would be a good candidate for the acute rehabilitation unit for roughly 3 -7 days (2) Benzodiazepine dependence Status: Chronic Comment: Dosage is being adjusted but he is getting enough that there is no risk of withdrawal (3) Anxiety disorder Status: Chronic Comment: Continue with duloxetine which is also for pain Qualifiers: Anxiety disorder type: generalized anxiety disorder Qualified Code: F41.1 - Generalized anxiety disorder Consultation Date/Type/Reason Admit Date/Time Jan 27, 2017 at 06:20 Initial Consult Date 01/28/17 Type of Consultation: Internal medicine Reason for Consultation Assist with postoperative management Referring Provider: ERNST LEW MD 24 HR Interval Summary Free Text/Dictation Patient reports that his pain is better and today is a better day than yesterday. Still with extensive complaints of pain Constitutional: no complaints (No fevers chills or sweats) Detailed Summary Respiratory: no complaints Cardiovascular: no complaints Gastrointestinal: no complaints (Feels better now that he has been able to pass gas) Genitourinary: no complaints Musculoskeletal: back pain, other (Complains of leg pain also) Exam/Review of Systems Vital Signs Vitals Vital Signs Date Time Temp Pulse Resp B/P Pulse Ox O2 Delivery O2 Flow Rate FiO2 01/30/17 13:51 3.0 01/30/17 08:00 98.1 75 18 114/70 96 01/28/17 09:20 Nasal Cannula Intake and Output 01/29/17 01/29/17 01/30/17 15:00 23:00 07:00 Intake Total 480 ml 400 ml Output Total 500 ml Balance -20 ml 400 ml Exam Modestly narcotize versus yesterday Constitutional: alert, oriented Neck: non-tender, supple Respiratory: clear to auscultation, normal air movement Cardiovascular: nl pulses, regular rate and rhythm Results Result Diagram: 01/29/17 0438 01/28/17 0902 Medications Medications Current Medications Prochlorperazine (Compazine) 10 mg Q4H PRN PO NAUSEA AND/OR VOMITING; Start at 18:30 Ondansetron HCl (Zofran Inj) 4 mg Q6H PRN IV NAUSEA AND/OR VOMITING; Start at 18:30 Acetaminophen (Tylenol Tab) 650 mg Q4H PRN PO TEMP GREATER THAN 101F OR HOWARD; Start 01/27/17 at 18:30 Naloxone HCl (Narcan) 0.2 mg Q2M PRN IV RR 8 BREATHS/MIN OR LESS; Start at 18:30 Alprazolam (Xanax) 0.5 mg Q12H PRN PO ANXIETY Last administered on 01/29/17 17:12; Admin Dose 0.5 MG; Start 01/27/17 at 18:30 Duloxetine HCl (Cymbalta) 30 mg DAILY PO Last administered on 01/30/17 08:26 ; Admin Dose 30 MG; Start 01/28/17 at 09:30 Alprazolam (Xanax) 0.25 mg Q8 PO Last administered on 01/30/17 13:18; Admin Dose 0.25 MG; Start 01/28/17 at 14:00 Methocarbamol (Robaxin) 500 mg TID PO Last administered on 01/30/17 13:18; Admin Dose 500 MG; Start 01/28/17 at 11:00 Oxycodone HCl (Oxycontin) 20 mg BID PO Last administered on 01/30/17 08:27; Admin Dose 20 MG; Start 01/28/17 at 21:00 Acetaminophen/ Hydrocodone Bitart ([place] (5/325)) 1 tab Q4H PRN PO PAIN LEVEL 1 -5 Last administered on 01/28/17 20:19; Admin Dose 1 TAB; Start 01/28/17 at 18:30 Acetaminophen/ Hydrocodone Bitart ([place] (5/325)) 2 tab Q4H PRN PO PAIN LEVEL 6 -10 Last administered on 01/30/17 09:25; Admin Dose 2 TAB; Start 01/28/17 at 18:30 Hydromorphone HCl (Dilaudid) 1 mg Q3H PRN IV SEVERE PAIN LEVEL 7-10 Last administered on 01/30/17t 13:18; Admin Dose 1 MG; Start 01/28/17 at 18:30 COLT LISA MD Jan 30, 2017 14:02
--- NOTE | 2017-01-30 15:22 | PN ---
DATE: 01/29/2017 SUBJECTIVE DATA: The patient is a 41-year-old male who is currently postop day number 2, status post anterior lumbar interbody fusion L3 to S1 with posterior spinal instrumented fusion. The patient was complaining of increased pain with some left lower extremity weakness yesterday with physical therapy. Therefore, a CT scan of the lumbar spine was ordered to ensure appropriate hardware placement. The patient reported improved strength after alteration of pain medications. He reports that his pain is currently under better control with increased OxyContin to 20 mg p.o. b.i.d. He is currently saturating 96 to 98 percent on room air. He has not had other overnight events. He reports that he is passing gas this a.m. He is tolerating a liquid diet. He currently denies any nausea or vomiting. OBJECTIVE DATA: VITAL SIGNS: T-max 99.4, heart rate 89 to 93, blood pressure 127 to 133 over 68 to 75. Sating 96 to 98 percent on room air. GENERAL: Alert and oriented x3 in no acute distress. SPINE: Patient has 5/5 strength in his bilateral gastrocnemius soleus, tibialis anterior and EHL. He has 4/5 strength in his bilateral knee extensors, 4/5 strength in his right hip flexor and 4-/5 strength in his left hip flexor. LABORATORY AND DIAGNOSTIC DATA: The patient's white blood cells have decreased to 16.1. His H and H is stable at 11.2/33.2. His platelets are 195. Electrolytes are within normal limits yesterday. ASSESSMENT AND PLAN: The patient is a 41-year-old male who is currently postoperative day number 2, status post anterior lumbar interbody fusion L3 to S1 with posterior spinal instrumented fusion. 1. The PROOF INSPECTOR has been discontinued. The patient is now started on a p.o. pain regimen with OxyContin 20 mg p.o. b.i.d. and [place] 5/325 mg 1 to 2 tabs q.4 hours p.r.n. breakthrough pain. We have also given him a 1 mg IV dilaudid for severe breakthrough pain q.3 hours. 2. We will have him continue to work with physical therapy and see if he would be a good candidate for rehab. 3. The patient does report that he is passing gas and we will advance his diet to a regular diet today as tolerated. 4. We will discontinue the Locke catheter today. 5. Once the patient works with physical therapy today, we will ensure that his pain is under good control with a p.o. pain regimen and he may possibly be transferred to rehab tomorrow. Dictated By: Hakeem Armneta MD /hi/orly /Document#: [id number]
[2017-01-30 20:20] VITALS: BP 119/64; RESP 20
[2017-01-31 00:19] VITALS: BP 119/77; RESP 19
[2017-01-31] MEDS: HYDROmorphONE 0.5 MG/0.5 ML SYG IV PRN ×5 (02:30→14:43)
[2017-01-31] MEDS: HYDROCODONE/APAP (5/325) TAB PO PRN ×3 (03:51→13:41)
[2017-01-31] MEDS: oxyCODONE (CR) 10 MG TAB [oxyCONTIN] PO SCH (04:28)
[2017-01-31 05:53] LABS: BASOPHIL # 0.1 10^3/ul (0.0-0.1); BASOPHILS % 0.4 % (0.0-2.0); EOSINOPHILS # 0.2 10^3/ul (0.0-0.5); EOSINOPHILS % 1.2 % (0.0-7.0); HEMATOCRIT 33.5 % (42.0-52.0); HEMOGLOBIN 11.1 g/dl (14.0-18.0); LYMPHOCYTES # 2.2 10^3/ul (0.8-2.9); LYMPHOCYTES % 17.3 % (15.0-51.0); MEAN CORPUSCULAR HEMOGLOBIN 29.6 pg (29.0-33.0); MEAN CORPUSCULAR HGB CONC 33.1 g/dl (32.0-37.0); MEAN CORPUSCULAR VOLUME 89.3 fl (82.0-101.0); MONOCYTE # 1.2 10^3/ul (0.3-0.9); MONOCYTES % 9.8 % (0.0-11.0); NEUTROPHIL # 8.8 10^3/ul (1.6-7.5); PLATELET COUNT 240 10^3/UL (140-415); RED BLOOD COUNT 3.75 10^6/ul (4.70-6.10); RED CELL DISTRIBUTION WIDTH 12.9 % (11.5-14.5); WHITE BLOOD COUNT 12.4 10^3/ul (4.8-10.8)
[2017-01-31 06:17] LABS: CALCIUM 8.4 mg/dl (8.4-10.2); CREATININE 0.62 mg/dl (0.61-1.24); POTASSIUM 3.5 mmol/L (3.5-5.1)
--- NOTE | 2017-01-31 07:32 | PN ---
DATE: 01/30/2017 SUBJECTIVE DATA: The patient is a 41-year-old male who is currently postop day number 3, status post anterior lumbar interbody fusion L3 to S1 with posterior spinal instrumented fusion. The patient had no acute overnight events. He reports that he has been passing gas and is tolerating a regular diet. He denies any nausea or vomiting. His pain is under good control with our regimen of OxyContin 20 mg p.o. b.i.d. and [place] 5/325 mg 1-2 tabs q.4-6 hours p.r.n. pain. He has also been receiving 1 mg of Dilaudid IV q.3 hours for severe breakthrough pain. He had no acute overnight events. He reports improvement in the strength in his bilateral particularly left lower extremity. He has been working well with physical therapy. He will be evaluated today for transfer to a rehab facility. This rehab facility will hopefully be inpatient rehab at our institution. OBJECTIVE DATA: VITAL SIGNS: He has been afebrile. Vital signs stable. GENERAL: Alert and oriented x3. In no acute distress. SPINE: The patient has 4/5 strength in his right hip flexor, knee extensor and 4/5 strength in his bilateral gastrocnemius soleus, EHL, and tibialis anterior on the right. On the left, the patient has 4-/5 strength in his left hip flexor. He has 4/5 strength in his left knee extensor and 5/5 strength in his tibialis anterior, EHL and gastrocnemius soleus complex. He does seem to be having some improvement in his left hip flexor strength compared to yesterday. LABORATORY AND DIAGNOSTIC DATA: CT scan of the lumbar spine performed on 01/29/2017 was reviewed. IMPRESSION: The patient has interval interbody fusion from L3 to S1 with posterior spinal instrumented fusion. The pedicle screws are within bone. There is no evidence of any hardware failure. There is no evidence of any significant malpositioned hardware. ASSESSMENT AND PLAN: The patient is a 41-year-old male postoperative day number 3, status post anterior lumbar interbody fusion L3 to S1 and posterior spinal instrumented fusion. PLAN: We will continue a regular diet. We will continue his current pain control regimen. We will have him continue to work with physical therapy today and if they feel he is a good candidate we will transfer him to our inpatient rehab facility to obtain further rehab. Dictated By: Hakeem Armenta MD /hi/orly /Document#: [id number]
[2017-01-31 07:49] VITALS: BP 119/73; RESP 18
[2017-01-31] MEDS: ALPRAZOLAM 0.25 MG TAB PO SCH (09:38)
[2017-01-31] MEDS: DULOXETINE 30 MG CAP DR PO SCH (09:38)
[2017-01-31] MEDS: METHOCARBAMOL 500 MG TAB PO SCH ×2 (09:41→13:40)
== END 2017-01-31 15:25 | DRG 460 ==
LOC: REC 06:20 → MS1 20:00
PROVIDERS: ADMIT Orthopaedic Surgery; ATTEND Orthopaedic Surgery
PROC: 0SG10A0 Fusion of 2 or more Lumbar Vertebral Joints with Interbody Fusion Device, Anterior Approach, Anterior Column, Open Approach (ICD-10-PCS; 2017-01-27)
PROC: 0ST40ZZ Resection of Lumbosacral Disc, Open Approach (ICD-10-PCS; 2017-01-27)
PROC: 0ST20ZZ Resection of Lumbar Vertebral Disc, Open Approach (ICD-10-PCS; 2017-01-27)
PROC: 4A11X4G Monitoring of Peripheral Nervous Electrical Activity, Intraoperative, External Approach (ICD-10-PCS; 2017-01-27)
PROC: 0SG30A0 Fusion of Lumbosacral Joint with Interbody Fusion Device, Anterior Approach, Anterior Column, Open Approach (ICD-10-PCS; principal; 2017-01-27 08:00)
DX: M51.17 Intervertebral disc disorders with radiculopathy, lumbosacral region (principal); F13.20 Sedative, hypnotic or anxiolytic dependence, uncomplicated; F32.9 Major depressive disorder, single episode, unspecified; M48.061 Spinal stenosis, lumbar region without neurogenic claudication; M51.16 Intervertebral disc disorders with radiculopathy, lumbar region; M48.07 Spinal stenosis, lumbosacral region; F41.9 Anxiety disorder, unspecified; G89.29 Other chronic pain; Z87.891 Personal history of nicotine dependence
CPT/HCPCS: 72114; 72131; 80048; 85014; 85018; 85025; 86850; 86900; 86901; 86920; 87086; 94640; 94664; 97110; 97116; 97161; 97530; C1713; C1762; J0131; J0360; J0690; J1100; J1170; J1644; J2060; J2175; J2250; J2405; J2765; J3010; J7120; L0639; L8699

== ENCOUNTER 2017-01-31 15:38 | Inpatient (IN) | payer OTHER ==
[~2017-01-31] VITALS: Ht 177.8 cm; Wt 76.2 kg
[~2017-01-31 15:38] MED LIST changes: +ALPR0.5T PO; -CEFAZOLIN 2 GM/50 ML (PMX) 50 ML IVPB SCH; +HYDR-3605 PO; -LACTATED RINGER'S 1,000 ML IV* SCH; +TRAM50TA2 PO
[2017-01-31 16:00] VITALS: BP 129/68; PULSE 71; RESP 18
[2017-01-31] MEDS ORDERED: NALOXONE (0.4 MG/ML) INJ IV PRN (16:30)
[2017-01-31] MEDS ORDERED: ONDANSETRON 4 MG INJ IV PRN (16:30)
[2017-01-31] MEDS ORDERED: PROCHLORPERAZINE 10 MG TAB PO PRN (17:00)
[2017-01-31] MEDS ORDERED: ALPRAZOLAM 0.5 MG TAB PO PRN (17:00)
[2017-01-31] MEDS ORDERED: NACL 0.9% 3 ML SYG IV SCH (17:00)
[2017-01-31] MEDS ORDERED: ACETAMINOPHEN 325 MG TAB PO PRN ×2 (17:00→18:00)
[2017-01-31] MEDS ORDERED: HYDROCODONE/APAP (5/325) TAB PO PRN (17:00)
[2017-01-31] MEDS ORDERED: ALBUTEROL/IPRATROPIUM (NEB) 3 ML AMP HHN PRN (17:00)
[2017-01-31] MEDS: HYDROCODONE/APAP (5/325) TAB PO PRN ×2 (17:26→22:37)
[2017-01-31] MEDS: HYDROmorphONE 1 MG/ML SYG IV PRN ×2 (17:45→21:15)
[2017-01-31] MEDS ORDERED: VITAMIN A & D 5 GM OINT PACKET TOP ONE (17:50)
[2017-01-31] MEDS ORDERED: BISACODYL 10 MG SUPP PR PRN (18:00)
[2017-01-31] MEDS ORDERED: MAGNESIUM HYDROXIDE 30ML CUP PO PRN (18:00)
[2017-01-31 19:23] VITALS: BP 127/77; PULSE 74; RESP 17
[2017-01-31] MEDS ORDERED: INFLUENZA VIRUS VACCINE 0.5 ML (DISPENSING) IM* ONE (19:30)
[2017-01-31] MEDS: ALPRAZOLAM 0.25 MG TAB PO SCH (20:08)
[2017-01-31] MEDS: METHOCARBAMOL 500 MG TAB PO SCH (20:08)
[2017-01-31] MEDS: oxyCODONE (CR) 10 MG TAB [oxyCONTIN] PO SCH (20:08)
[2017-01-31] MEDS: DOCUSATE SODIUM 100 MG CAP PO SCH (20:10)
[2017-01-31] MEDS: SENNA TAB PO SCH (20:10)
[2017-02-01] MEDS: HYDROmorphONE 1 MG/ML SYG IV PRN ×7 (00:18→22:06)
[2017-02-01 02:15] VITALS: BP 134/79; PULSE 69; RESP 18
[2017-02-01] MEDS: HYDROCODONE/APAP (5/325) TAB PO PRN (05:56)
[2017-02-01] MEDS: LACTULOSE 30ML CUP PO PRN (06:33)
[2017-02-01 08:00] VITALS: BP 135/78; PULSE 70; RESP 18
[2017-02-01] MEDS ORDERED: HYDROmorphONE 2 MG/ML SYG IV STA (08:58)
[2017-02-01] MEDS: oxyCODONE (CR) 10 MG TAB [oxyCONTIN] PO SCH ×2 (09:13→21:06)
[2017-02-01] MEDS: DULOXETINE 30 MG CAP DR PO SCH (09:13)
[2017-02-01] MEDS: ALPRAZOLAM 0.25 MG TAB PO SCH (09:13)
[2017-02-01] MEDS: METHOCARBAMOL 500 MG TAB PO SCH ×3 (09:13→21:04)
[2017-02-01] MEDS: DOCUSATE SODIUM 100 MG CAP PO SCH ×2 (09:13→21:06)
--- NOTE | 2017-02-01 13:14 | CONS ---
DATE OF ADMISSION: 01/31/2017 DATE OF CONSULTATION: 02/01/2017 REHABILITATION POSTADMISSION PHYSICIAN EVALUATION. REHABILITATION IMPAIRMENT CATEGORY: Lumbar degenerative disk disease and spinal stenosis with radic ulopathy, status post lumbar fusion. ACTIVE COMORBIDITIES: 1. Acute pain syndrome. 2. Anxiety. 3. Impairments in self-care and mobility. HISTORY OF PRESENT ILLNESS: The patient is a 41-year-old gentleman with a history of chronic low ba ck pain with degenerative joint disease and spinal stenosis in addition to bilateral lumbar radiculo ke who is status post lumbar spinal fusion on 01/27/2017. The patient's postoperative course has been notable for significant pain, constipation, in addition to impairments in self-care and mobili ty as compared to baseline. The patient has been cleared to transfer to the rehabilitation unit for comprehensive interdisciplinary rehab care. FUNCTIONAL HISTORY: Prior to recent events, he was independent in self-care tasks and mobility. Currently, the patient requires moderate to maximal assist for self-care and mobility tasks. I have reviewed the preadmission screen and the patient's current functional status is consistent wi th the preadmission screen. SOCIAL HISTORY: The patient reports living at home with family and hopes to return there upon disch arge. The patient reports he does have stairs at home that he will have to maneuver. PAST MEDICAL HISTORY: 1. Degenerative disk disease with spinal stenosis and radiculopathy. 2. Anxiety. CURRENT MEDICATIONS: 1. Albuterol inhaler p.r.n. 2. Xanax p.r.n. and 0.25 mg b.i.d. 3. Cymbalta 30 mg p.o. daily. 4. [place] p.r.n. 5. Dilaudid p.r.n. 6. Robaxin t.i.d. 7. OxyContin 20 mg b.i.d. ALLERGIES: REPORTEDLY CODEINE. PHYSICAL EXAMINATION: VITAL SIGNS: The patient is currently afebrile with stable vital signs. HEENT: The extraocular motions are intact. Oropharynx clear. NECK: Supple. LUNGS: Clear anteriorly. CARDIAC: S1, S2. ABDOMEN: Soft, nontender, positive bowel sounds. NEUROLOGIC: He is awake and alert and oriented x3. He will follow simple 1-step commands. 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 He has good strength in bilateral upper extremity, antigravity stre ngth in bilateral lower extremity. Dorsiflexion and plantar flexion intact. PLAN: The patient has been admitted for comprehensive interdisciplinary acute rehab and is anticipa reji to tolerate 3 hours of daily therapy in divided doses for at least 5/7 days a week. The treatme nt plan will include: 1. Physical therapy to focus on bed mobility, transfers, and household ambulation with the goal of having the patient reach a standby assist level including stair mobility. 2. Occupational therapy to focus on hygiene, grooming, dressing, bathing, and toileting activities with the goal of having the patient reach standby assist level. 3. Rehabilitation nursing for carryover of therapeutic interventions, the goal of continent of gudelia l and bladder, and the goal of pain adequately managed on oral medications. ESTIMATED LENGTH OF STAY: 10 days. DISPOSITION GOAL: Home. REHABILITATION BARRIER: Pain. INTERVENTION FOR BARRIER: Interdisciplinary approach. I acknowledge that I performed a full physical examination on this patient within 24 hours of admiss ion to the rehabilitation unit and I believe the patient is a good candidate for comprehensive inter disciplinary rehab care and is anticipated to make reasonable goals in a reasonable period of time a s outlined above. Dictated By: AMBER JORDAN/SANDRA Conf#: [id number] DID#: [id number]
--- NOTE | 2017-02-01 18:08 | PN ---
Date/Time of Note Date/Time of Note DATE: 02/01/17 TIME: 18:04 Assessment/Plan VTE Prophylaxis VTE Prophylaxis Intervention: other Lines/Catheters IV [facility] Type [facility] Saline Lock Urinary Cath still in place: No Assessment/Plan Problems: (1) Anxiety disorder Status: Chronic Comment: Patient gives an extremely variable history of amount of medications he has been taking. He is consistent reporting that he is never been treated with anything for this outside of alprazolam and Gabriels by his pain management doctors. He is presently on duloxetine which I will continue. His dosing on the alprazolam he is change the story on with me at least 3 times. His sister was at the bedside and while she is quite enabling it turns out he was using a minimal 2 mg a day until immediately prior to coming to the hospital. As such we will adjust his dosage to reflect that this is certainly different than what he had told me was his daily dosage of 0.75 mg a day. Qualifiers: Anxiety disorder type: generalized anxiety disorder Qualified Code: F41.1 - Generalized anxiety disorder (2) Tobacco dependence Status: Chronic Comment: Again the details of his history change with his sister present. I am going to go ahead and use a medium dose nicotine patch to help with withdrawal symptoms here. (3) Benzodiazepine dependence Status: Chronic Comment: Noted. The combination of the alprazolam with a duloxetine should help with this. In addition he is on gabapentin. (4) S/P lumbar spinal fusion Onset Date: ~ 01/27/2017 Status: Acute Comment: He is progressing. Please note his underlying other issues as noted above will slow down his rehabilitation. (5) Persistent disorder of initiating or maintaining sleep Status: Chronic Comment: Again with her sister present and adds a great deal of information. His dates back at least 2 decades of poor sleep patterns. Our ability to adjust this at this immediate time will be somewhat limited. However we can use a combination of duloxetine with a increased dose gabapentin and maintaining his as a days opinions to help cover for this. Subjective 24 Hr Interval Summary Free Text/Dictation Patient reports a fair amount of issues with anxiety. He reports his pain control varies between a level 3 out of 10 and 7 out of 10. Constitutional: no complaints (No fevers chills or sweats) Respiratory: no complaints Cardiovascular: no complaints Gastrointestinal: no complaints Musculoskeletal: back pain, other (Complains of muscular spasms) Skin: no complaints Neurologic: other (Sciatica symptoms although better than preop) Psychological: anxiety Exam/Review of Systems Vital Signs Vitals Vital Signs Date Time Temp Pulse Resp B/P Pulse Ox O2 Delivery O2 Flow Rate FiO2 02/01/17 08:00 98.2 70 18 135/78 99 Room Air Intake and Output 01/31/17 01/31/17 02/01/17 15:00 23:00 07:00 Intake Total 200 ml 250 ml Balance 200 ml 250 ml Exam Anxious male who appears physically more comfortable than he did a few days ago Constitutional: alert, oriented Neck: non-tender, supple Respiratory: clear to auscultation, normal air movement Cardiovascular: nl pulses, regular rate and rhythm Gastrointestinal: nl liver, spleen, non-tender, soft Results Result Diagram: 02/01/1761802/01/17 0619 Results 24 hrs Laboratory Tests Test 02/01/17 06:19 White Blood Count 10.9 H Red Blood Count 3.80 L Hemoglobin 11.6 L Hematocrit 34.5 L Mean Corpuscular Volume 90.8 Mean Corpuscular Hemoglobin 30.5 Mean Corpuscular Hemoglobin Concent 33.6 Red Cell Distribution Width 12.7 Platelet Count 260 Mean Platelet Volume 9.7 Neutrophils % 75.6 Lymphocytes % 12.9 L Monocytes % 9.4 Eosinophils % 1.4 Basophils % 0.4 Nucleated Red Blood Cells % 0.0 Neutrophils # 8.2 H Lymphocytes # 1.4 Monocytes # 1.0 H Eosinophils # 0.2 Basophils # 0.0 Nucleated Red Blood Cells # 0.0 Sodium Level 139 Potassium Level 4.0 Chloride Level 103 Carbon Dioxide Level 28 Anion Gap 12 Blood Urea Nitrogen 11 Creatinine 0.61 Glucose Level 113 Calcium Level 8.8 Total Bilirubin 0.4 Direct Bilirubin 0.00 Indirect Bilirubin 0.4 Aspartate Amino Transf (AST/SGOT) 32 Alanine Aminotransferase (ALT/SGPT) 31 Alkaline Phosphatase 58 Total Protein 6.4 Albumin 3.2 L Globulin 3.20 Albumin/Globulin Ratio 1.00 Medications Medications Current Medications Methocarbamol (Robaxin) 500 mg TID PO Last administered on 02/01/17t 13:00; Admin Dose 500 MG; Start 01/31/17 at 21:00 Naloxone HCl (Narcan) 0.2 mg Q2M PRN IV DECREASED REPIRATORY RATE; Start 01/31 at 16:30 Ondansetron HCl (Zofran Inj) 4 mg Q6H PRN IV NAUSEA AND/OR VOMITING; Start at 16:30 Oxycodone HCl (Oxycontin) 20 mg BID PO Last administered on 02/01/17 09:13; Admin Dose 20 MG; Start 01/31/17 at 21:00 Prochlorperazine (Compazine) 10 mg Q4H PRN PO NAUSEA AND/OR VOMITING; Start at 17:00 Acetaminophen (Tylenol Tab) 650 mg Q4H PRN PO PAIN AND OR ELEVATED TEMP; Start 01/31/17 at 17:00 Alprazolam (Xanax) 0.5 mg Q12H PRN PO ANXIETY Last administered on 02/01/17 06 :13; Admin Dose 0.5 MG; Start 01/31/17 at 17:00 Duloxetine HCl (Cymbalta) 30 mg DAILY PO Last administered on 02/01/17 09:13; Admin Dose 30 MG; Start 02/01/17 at 09:00 Acetaminophen/ Hydrocodone Bitart ([place] (5/325)) 1 tab Q4H PRN PO PAIN LEVEL 1 -5; Start 01/31/17 at 17:00 Acetaminophen/ Hydrocodone Bitart ([place] (5/325)) 2 tab Q4H PRN PO PAIN LEVEL 6 -10 Last administered on 02/01/17 05:56; Admin Dose 2 TAB; Start 01/31/17 at 17:00 Docusate Sodium (Colace) 100 mg BID PO Last administered on 02/01/17 09:13; Admin Dose 100 MG; Start 01/31/17 at 21:00 Senna (Senokot) 1 tab QHS PO ; Start 01/31/17 at 21:00 Bisacodyl (Dulcolax Supp) 10 mg DAILY PRN [place] CONSTIPATION; Start 01/31/17 at 18:00 Magnesium Hydroxide (Milk Of Mag) 30 ml BID PRN PO CONSTIPATION; Start at 18:00 Lactulose (Enulose) 20 gm DAILY PRN PO CONSTIPATION Last administered on 06:33; Admin Dose 20 GM; Start 01/31/17 at 18:00 Acetaminophen/ Hydrocodone Bitart ([place] (7.5-325)) 2 tab Q4H PRN PO PAIN LEVEL 7-10; Start 02/01/17 at 12:30 Gabapentin (Neurontin) 300 mg QHS PO ; Start 02/01/17 at 21:00 Alprazolam (Xanax) 1 mg Q12 PO ; Start 02/01/17 at 21:00 Hydromorphone HCl (Dilaudid) 1 mg Q3 PRN IV PAIN; Start 02/01/17 at 17:37 COLT LISA MD Feb 01, 2017 18:08
[2017-02-01] MEDS: NICOTINE (14 MG/24 HR) PATCH TRANSDERM SCH (18:30)
[2017-02-01 20:00] VITALS: BP 128/77; PULSE 80; RESP 18
[2017-02-01] MEDS: HYDROCODONE/APAP (7.5/325) TAB PO PRN (20:17)
[2017-02-01] MEDS ORDERED: HYDROmorphONE 1 MG/ML SYG IV PRN (21:00)
[2017-02-01] MEDS ORDERED: GABAPENTIN 100 MG CAP PO SCH (21:00)
[2017-02-01] MEDS ORDERED: GABAPENTIN 300 MG CAP PO SCH (21:00)
[2017-02-01] MEDS ORDERED: ALPRAZOLAM 0.5 MG TAB PO SCH (21:00)
[2017-02-01] MEDS: SENNA TAB PO SCH (21:06)
[2017-02-01] MEDS: GABAPENTIN 400 MG CAP PO SCH (21:06)
[2017-02-01] MEDS: ALPRAZOLAM 0.5 MG TAB PO SCH (22:05)
[2017-02-02] MEDS: HYDROCODONE/APAP (7.5/325) TAB PO PRN ×3 (01:00→19:21)
[2017-02-02] MEDS: HYDROmorphONE 1 MG/ML SYG IV PRN ×7 (01:54→19:53)
[2017-02-02 02:22] VITALS: BP 127/59; RESP 18
--- NOTE | 2017-02-02 06:38 | PN ---
DATE: 02/01/2017 SUBJECTIVE DATA: The patient is a 41-year-old male who is currently postop day 5 status post anterior lumbar interbody fusion, L3 to S1, with posterior spinal instrumented fusion. The patient was transferred to rehab yesterday. He reports continued improvement in his left hip flexor strength. He does report, however, that he is having some radiating pain in the left anterior medial thigh which appears to be improving in nature. He has been working well with physical therapy. He reports that pain control has been an issue. We will adjust this accordingly. He, otherwise, has had no acute events. He is currently passing gas. He is tolerating a regular diet today. He denies any nausea or vomiting. He has been afebrile. OBJECTIVE DATA: VITAL SIGNS: Afebrile, vital signs stable. GENERAL: He is alert and oriented x3 in no acute distress. SPINE: He has 5/5 strength to the bilateral tibialis anterior, EHL, gastrocnemius, soleus and knee extensors. His right hip flexor is a 4/5 in strength. His left hip flexor is 3+/4- out of 5 in strength, however, he does report improvement subjectively. ASSESSMENT: A 41-year-old male currently status post anterior lumbar interbody fusion L3 to S1 with posterior spinal instrumentation. PLAN: At this time, we will have him continue with acute rehab. We will continue to alter his pain medications as per the primary team, Dr. Murry, for pain control. We have currently adjusted his regimen to OxyContin 20 mg p.o. b.i.d. with [place] 5/325 tablets, 1-2 tabs q.4 hours p.r.n. break through pain. He has also been given Dilaudid 1 mg IV q.3 hours p.r.n. severe break through pain. We have also adjusted his Xanax today to 1 mg p.o. q.12 hours standing dose and an additional 0.5 mg p.o. q.12 hours p.r.n. anxiety. We also have increased his Neurontin to 300 mg at bedtime. He is also receiving Robaxin 500 mg p.o. t.i.d. to help with his muscle spasms. Of note, the patient has currently been on narcotics for several years and has a very high tolerance. He has also been taking Xanax 1-2 mg twice a day for anxiety at home. Dictated By: Hakeem Armenta MD /hi/raghu /Document#: [id number]
[2017-02-02 07:00] VITALS: BP 121/73; RESP 18
[2017-02-02] MEDS: ALPRAZOLAM 0.5 MG TAB PO SCH ×3 (07:05→21:03)
[2017-02-02] MEDS: METHOCARBAMOL 500 MG TAB PO SCH ×3 (08:58→21:00)
[2017-02-02] MEDS: DULOXETINE 30 MG CAP DR PO SCH (08:58)
[2017-02-02] MEDS: DOCUSATE SODIUM 100 MG CAP PO SCH ×2 (08:58→21:00)
[2017-02-02] MEDS: oxyCODONE (CR) 10 MG TAB [oxyCONTIN] PO SCH ×2 (08:59→21:01)
[2017-02-02] MEDS: LACTULOSE 30ML CUP PO PRN (08:59)
[2017-02-02] MEDS: NICOTINE (14 MG/24 HR) PATCH TRANSDERM SCH (09:00)
--- NOTE | 2017-02-02 13:05 | CONS ---
Date/Time of Note Date/Time of Note DATE: 02/02/17 TIME: 13:04 Consult Date/Type/Reason Admit Date/Time Jan 31, 2017 at 15:38 Initial Consult Date Subjective Still with pain, but reports it is improving Objective pulm-cta abd-soft Vital Signs Date Time Temp Pulse Resp B/P Pulse Ox O2 Delivery O2 Flow Rate FiO2 02/02/17 07:00 98.7 60 18 121/73 96 02/01/17 20:00 Room Air Intake and Output 02/01/17 02/01/17 02/02/17 15:00 23:00 07:00 Intake Total 550 ml 700 ml Output Total 450 ml 420 ml Balance -450 ml 130 ml 700 ml Results/Medications Result Diagram: 02/01/1761802/01/17618 Medications Current Medications Methocarbamol (Robaxin) 500 mg TID PO Last administered on 02/02/17 08:58; Admin Dose 500 MG; Start 01/31/17 at 21:00 Naloxone HCl (Narcan) 0.2 mg Q2M PRN IV DECREASED REPIRATORY RATE; Start 01/31 at 16:30 Ondansetron HCl (Zofran Inj) 4 mg Q6H PRN IV NAUSEA AND/OR VOMITING; Start at 16:30 Oxycodone HCl (Oxycontin) 20 mg BID PO Last administered on 02/02/17 08:59; Admin Dose 20 MG; Start 01/31/17 at 21:00 Prochlorperazine (Compazine) 10 mg Q4H PRN PO NAUSEA AND/OR VOMITING; Start at 17:00 Acetaminophen (Tylenol Tab) 650 mg Q4H PRN PO PAIN AND OR ELEVATED TEMP; Start 01/31/17 at 17:00 Alprazolam (Xanax) 0.5 mg Q12H PRN PO ANXIETY Last administered on 02/01/17 06 :13; Admin Dose 0.5 MG; Start 01/31/17 at 17:00 Duloxetine HCl (Cymbalta) 30 mg DAILY PO Last administered on 02/02/17 08:58; Admin Dose 30 MG; Start 02/01/17 at 09:00 Acetaminophen/ Hydrocodone Bitart ([place] (5/325)) 1 tab Q4H PRN PO PAIN LEVEL 1 -5; Start 01/31/17 at 17:00 Acetaminophen/ Hydrocodone Bitart ([place] (5/325)) 2 tab Q4H PRN PO PAIN LEVEL 6 -10 Last administered on 02/01/17 05:56; Admin Dose 2 TAB; Start 01/31/17 at 17:00 Docusate Sodium (Colace) 100 mg BID PO Last administered on 02/02/17 08:58; Admin Dose 100 MG; Start 01/31/17 at 21:00 Senna (Senokot) 1 tab QHS PO Last administered on 02/01/17 21:06; Admin Dose 1 TAB; Start 01/31/17 at 21:00 Bisacodyl (Dulcolax Supp) 10 mg DAILY PRN [place] CONSTIPATION; Start 01/31/17 at 18:00 Magnesium Hydroxide (Milk Of Mag) 30 ml BID PRN PO CONSTIPATION; Start at 18:00 Lactulose (Enulose) 20 gm DAILY PRN PO CONSTIPATION Last administered on 08:59; Admin Dose 20 GM; Start 01/31/17 at 18:00 Acetaminophen/ Hydrocodone Bitart ([place] (7.5-325)) 2 tab Q4H PRN PO PAIN LEVEL 7-10 Last administered on 02/02/17 01:00; Admin Dose 2 TAB; Start at 12:30 Hydromorphone HCl (Dilaudid) 1 mg Q3 PRN IV PAIN Last administered on 10:32; Admin Dose 1 MG; Start 02/01/17 at 17:37 Alprazolam (Xanax) 0.5 mg Q8 PO Last administered on 02/02/17 07:05; Admin Dose 0.5 MG; Start 02/01/17 at 22:00 Gabapentin (Neurontin) 400 mg QHS PO Last administered on 02/01/17 21:06; Admin Dose 400 MG; Start 02/01/17 at 21:00 Nicotine (Nicoderm 14 Mg/ 24hr) 1 patch DAILY TRANSDERM ; Start 02/01/17 at 18: 30 Assessment/Plan Additional Assessment/Plan Rehab- Lumbar degenerative disk disease and spinal stenosis with radiculopathy , status post lumbar fusion. Continue current rehab program Acute pain syndrome-continue current meds Anxiety. AMBER CLIFFORD MD Feb 02, 2017 13:05
--- NOTE | 2017-02-02 13:05 | CONS ---
Date/Time of Note Date/Time of Note DATE: 02/02/17 TIME: 13:04 Consult Date/Type/Reason Admit Date/Time Jan 31, 2017 at 15:38 Initial Consult Date Subjective Still with pain, but reports it is improving Objective pulm-cta abd-soft Vital Signs Date Time Temp Pulse Resp B/P Pulse Ox O2 Delivery O2 Flow Rate FiO2 02/02/17 07:00 98.7 60 18 121/73 96 02/01/17 20:00 Room Air Intake and Output 02/01/17 02/01/17 02/02/17 15:00 23:00 07:00 Intake Total 550 ml 700 ml Output Total 450 ml 420 ml Balance -450 ml 130 ml 700 ml Results/Medications Result Diagram: 02/01/1761802/01/17618 Medications Current Medications Methocarbamol (Robaxin) 500 mg TID PO Last administered on 02/02/17 08:58; Admin Dose 500 MG; Start 01/31/17 at 21:00 Naloxone HCl (Narcan) 0.2 mg Q2M PRN IV DECREASED REPIRATORY RATE; Start 01/31 at 16:30 Ondansetron HCl (Zofran Inj) 4 mg Q6H PRN IV NAUSEA AND/OR VOMITING; Start at 16:30 Oxycodone HCl (Oxycontin) 20 mg BID PO Last administered on 02/02/17 08:59; Admin Dose 20 MG; Start 01/31/17 at 21:00 Prochlorperazine (Compazine) 10 mg Q4H PRN PO NAUSEA AND/OR VOMITING; Start at 17:00 Acetaminophen (Tylenol Tab) 650 mg Q4H PRN PO PAIN AND OR ELEVATED TEMP; Start 01/31/17 at 17:00 Alprazolam (Xanax) 0.5 mg Q12H PRN PO ANXIETY Last administered on 02/01/17 06 :13; Admin Dose 0.5 MG; Start 01/31/17 at 17:00 Duloxetine HCl (Cymbalta) 30 mg DAILY PO Last administered on 02/02/17 08:58; Admin Dose 30 MG; Start 02/01/17 at 09:00 Acetaminophen/ Hydrocodone Bitart ([place] (5/325)) 1 tab Q4H PRN PO PAIN LEVEL 1 -5; Start 01/31/17 at 17:00 Acetaminophen/ Hydrocodone Bitart ([place] (5/325)) 2 tab Q4H PRN PO PAIN LEVEL 6 -10 Last administered on 02/01/17 05:56; Admin Dose 2 TAB; Start 01/31/17 at 17:00 Docusate Sodium (Colace) 100 mg BID PO Last administered on 02/02/17 08:58; Admin Dose 100 MG; Start 01/31/17 at 21:00 Senna (Senokot) 1 tab QHS PO Last administered on 02/01/17 21:06; Admin Dose 1 TAB; Start 01/31/17 at 21:00 Bisacodyl (Dulcolax Supp) 10 mg DAILY PRN [place] CONSTIPATION; Start 01/31/17 at 18:00 Magnesium Hydroxide (Milk Of Mag) 30 ml BID PRN PO CONSTIPATION; Start at 18:00 Lactulose (Enulose) 20 gm DAILY PRN PO CONSTIPATION Last administered on 08:59; Admin Dose 20 GM; Start 01/31/17 at 18:00 Acetaminophen/ Hydrocodone Bitart ([place] (7.5-325)) 2 tab Q4H PRN PO PAIN LEVEL 7-10 Last administered on 02/02/17 01:00; Admin Dose 2 TAB; Start at 12:30 Hydromorphone HCl (Dilaudid) 1 mg Q3 PRN IV PAIN Last administered on 10:32; Admin Dose 1 MG; Start 02/01/17 at 17:37 Alprazolam (Xanax) 0.5 mg Q8 PO Last administered on 02/02/17 07:05; Admin Dose 0.5 MG; Start 02/01/17 at 22:00 Gabapentin (Neurontin) 400 mg QHS PO Last administered on 02/01/17 21:06; Admin Dose 400 MG; Start 02/01/17 at 21:00 Nicotine (Nicoderm 14 Mg/ 24hr) 1 patch DAILY TRANSDERM ; Start 02/01/17 at 18: 30 Assessment/Plan Additional Assessment/Plan Rehab- Lumbar degenerative disk disease and spinal stenosis with radiculopathy , status post lumbar fusion. Continue current rehab program Acute pain syndrome-continue current meds Anxiety. AMBER CLIFFORD MD Feb 02, 2017 13:05
--- NOTE | 2017-02-02 13:05 | CONS ---
Date/Time of Note Date/Time of Note DATE: 02/02/17 TIME: 13:04 Consult Date/Type/Reason Admit Date/Time Jan 31, 2017 at 15:38 Initial Consult Date Subjective Still with pain, but reports it is improving Objective pulm-cta abd-soft Vital Signs Date Time Temp Pulse Resp B/P Pulse Ox O2 Delivery O2 Flow Rate FiO2 02/02/17 07:00 98.7 60 18 121/73 96 02/01/17 20:00 Room Air Intake and Output 02/01/17 02/01/17 02/02/17 15:00 23:00 07:00 Intake Total 550 ml 700 ml Output Total 450 ml 420 ml Balance -450 ml 130 ml 700 ml Results/Medications Result Diagram: 02/01/1761802/01/17618 Medications Current Medications Methocarbamol (Robaxin) 500 mg TID PO Last administered on 02/02/17 08:58; Admin Dose 500 MG; Start 01/31/17 at 21:00 Naloxone HCl (Narcan) 0.2 mg Q2M PRN IV DECREASED REPIRATORY RATE; Start 01/31 at 16:30 Ondansetron HCl (Zofran Inj) 4 mg Q6H PRN IV NAUSEA AND/OR VOMITING; Start at 16:30 Oxycodone HCl (Oxycontin) 20 mg BID PO Last administered on 02/02/17 08:59; Admin Dose 20 MG; Start 01/31/17 at 21:00 Prochlorperazine (Compazine) 10 mg Q4H PRN PO NAUSEA AND/OR VOMITING; Start at 17:00 Acetaminophen (Tylenol Tab) 650 mg Q4H PRN PO PAIN AND OR ELEVATED TEMP; Start 01/31/17 at 17:00 Alprazolam (Xanax) 0.5 mg Q12H PRN PO ANXIETY Last administered on 02/01/17 06 :13; Admin Dose 0.5 MG; Start 01/31/17 at 17:00 Duloxetine HCl (Cymbalta) 30 mg DAILY PO Last administered on 02/02/17 08:58; Admin Dose 30 MG; Start 02/01/17 at 09:00 Acetaminophen/ Hydrocodone Bitart ([place] (5/325)) 1 tab Q4H PRN PO PAIN LEVEL 1 -5; Start 01/31/17 at 17:00 Acetaminophen/ Hydrocodone Bitart ([place] (5/325)) 2 tab Q4H PRN PO PAIN LEVEL 6 -10 Last administered on 02/01/17 05:56; Admin Dose 2 TAB; Start 01/31/17 at 17:00 Docusate Sodium (Colace) 100 mg BID PO Last administered on 02/02/17 08:58; Admin Dose 100 MG; Start 01/31/17 at 21:00 Senna (Senokot) 1 tab QHS PO Last administered on 02/01/17 21:06; Admin Dose 1 TAB; Start 01/31/17 at 21:00 Bisacodyl (Dulcolax Supp) 10 mg DAILY PRN [place] CONSTIPATION; Start 01/31/17 at 18:00 Magnesium Hydroxide (Milk Of Mag) 30 ml BID PRN PO CONSTIPATION; Start at 18:00 Lactulose (Enulose) 20 gm DAILY PRN PO CONSTIPATION Last administered on 08:59; Admin Dose 20 GM; Start 01/31/17 at 18:00 Acetaminophen/ Hydrocodone Bitart ([place] (7.5-325)) 2 tab Q4H PRN PO PAIN LEVEL 7-10 Last administered on 02/02/17 01:00; Admin Dose 2 TAB; Start at 12:30 Hydromorphone HCl (Dilaudid) 1 mg Q3 PRN IV PAIN Last administered on 10:32; Admin Dose 1 MG; Start 02/01/17 at 17:37 Alprazolam (Xanax) 0.5 mg Q8 PO Last administered on 02/02/17 07:05; Admin Dose 0.5 MG; Start 02/01/17 at 22:00 Gabapentin (Neurontin) 400 mg QHS PO Last administered on 02/01/17 21:06; Admin Dose 400 MG; Start 02/01/17 at 21:00 Nicotine (Nicoderm 14 Mg/ 24hr) 1 patch DAILY TRANSDERM ; Start 02/01/17 at 18: 30 Assessment/Plan Additional Assessment/Plan Rehab- Lumbar degenerative disk disease and spinal stenosis with radiculopathy , status post lumbar fusion. Continue current rehab program Acute pain syndrome-continue current meds Anxiety. AMBER CLIFFORD MD Feb 02, 2017 13:05
--- NOTE | 2017-02-02 14:05 | PN ---
Date/Time of Note Date/Time of Note DATE: 02/02/17 TIME: 14:02 Assessment/Plan VTE Prophylaxis VTE Prophylaxis Intervention: heparin Lines/Catheters IV Catheter Type (from [facility]): Saline Lock Urinary Cath still in place: No Assessment/Plan Problems: (1) Persistent disorder of initiating or maintaining sleep Status: Chronic Comment: I will add in mirtazapine to his regimen which will help a little bit with his severe anxiety disorder a little bit with this. (2) Anxiety disorder Status: Chronic Comment: He is under slightly better control. He essentially do the years he has been on benzodiazepines is stuck. Our best bet is to try and treat his anxiety disorder in a more traditional fashion and maintain his benzodiazepines hoping not to increase her dosing. Qualifiers: Anxiety disorder type: generalized anxiety disorder Qualified Code: F41.1 - Generalized anxiety disorder (3) Benzodiazepine dependence Status: Chronic Comment: He is on benzodiazepines similarly reveals on as an outpatient but is slightly lower of the dosage. As noted above he is on this and perpetuity most likely (4) Tobacco dependence Status: Chronic Comment: He is stable with a nicotine patch (5) S/P lumbar spinal fusion Onset Date: ~ 01/27/2017 Status: Acute Comment: He is progressing very slowly with physical therapy. He has adequate pain control. Will need to be careful to wean back on his pain medications relatively quickly to avoid adding into the issues that were already there when we got him. Subjective 24 Hr Interval Summary Free Text/Dictation She is up and ambulating with physical therapy. He is still extremely anxious but reports is better than yesterday Constitutional: no complaints Respiratory: no complaints Cardiovascular: no complaints Gastrointestinal: no complaints Musculoskeletal: back pain, other Psychological: anxiety Exam/Review of Systems Vital Signs Vitals Vital Signs Date Time Temp Pulse Resp B/P Pulse Ox O2 Delivery O2 Flow Rate FiO2 02/02/17 07:00 98.7 60 18 121/73 96 02/01/17 20:00 Room Air Intake and Output 02/01/17 02/01/17 02/02/17 15:00 23:00 07:00 Intake Total 550 ml 700 ml Output Total 450 ml 420 ml Balance -450 ml 130 ml 700 ml Exam Ambulating in hallway Constitutional: alert, oriented Respiratory: clear to auscultation, normal air movement Cardiovascular: nl pulses, regular rate and rhythm Results Result Diagram: 02/01/1761802/01/17618 Medications Medications Current Medications Methocarbamol (Robaxin) 500 mg TID PO Last administered on 02/02/17 13:12; Admin Dose 500 MG; Start 01/31/17 at 21:00 Naloxone HCl (Narcan) 0.2 mg Q2M PRN IV DECREASED REPIRATORY RATE; Start 01/31 at 16:30 Ondansetron HCl (Zofran Inj) 4 mg Q6H PRN IV NAUSEA AND/OR VOMITING; Start at 16:30 Oxycodone HCl (Oxycontin) 20 mg BID PO Last administered on 02/02/17 08:59; Admin Dose 20 MG; Start 01/31/17 at 21:00 Prochlorperazine (Compazine) 10 mg Q4H PRN PO NAUSEA AND/OR VOMITING; Start at 17:00 Acetaminophen (Tylenol Tab) 650 mg Q4H PRN PO PAIN AND OR ELEVATED TEMP; Start 01/31/17 at 17:00 Alprazolam (Xanax) 0.5 mg Q12H PRN PO ANXIETY Last administered on 02/01/17 06 :13; Admin Dose 0.5 MG; Start 01/31/17 at 17:00 Duloxetine HCl (Cymbalta) 30 mg DAILY PO Last administered on 02/02/17 08:58; Admin Dose 30 MG; Start 02/01/17 at 09:00 Acetaminophen/ Hydrocodone Bitart ([place] (5/325)) 1 tab Q4H PRN PO PAIN LEVEL 1 -5; Start 01/31/17 at 17:00 Acetaminophen/ Hydrocodone Bitart ([place] (5/325)) 2 tab Q4H PRN PO PAIN LEVEL 6 -10 Last administered on 02/01/17 05:56; Admin Dose 2 TAB; Start 01/31/17 at 17:00 Docusate Sodium (Colace) 100 mg BID PO Last administered on 02/02/17 08:58; Admin Dose 100 MG; Start 01/31/17 at 21:00 Senna (Senokot) 1 tab QHS PO Last administered on 02/01/17 21:06; Admin Dose 1 TAB; Start 01/31/17 at 21:00 Bisacodyl (Dulcolax Supp) 10 mg DAILY PRN [place] CONSTIPATION; Start 01/31/17 at 18:00 Magnesium Hydroxide (Milk Of Mag) 30 ml BID PRN PO CONSTIPATION; Start at 18:00 Lactulose (Enulose) 20 gm DAILY PRN PO CONSTIPATION Last administered on 08:59; Admin Dose 20 GM; Start 01/31/17 at 18:00 Acetaminophen/ Hydrocodone Bitart ([place] (7.5-325)) 2 tab Q4H PRN PO PAIN LEVEL 7-10 Last administered on 02/02/17 01:00; Admin Dose 2 TAB; Start at 12:30 Hydromorphone HCl (Dilaudid) 1 mg Q3 PRN IV PAIN Last administered on 13:36; Admin Dose 1 MG; Start 02/01/17 at 17:37 Alprazolam (Xanax) 0.5 mg Q8 PO Last administered on 02/02/17 13:12; Admin Dose 0.5 MG; Start 02/01/17 at 22:00 Gabapentin (Neurontin) 400 mg QHS PO Last administered on 02/01/17 21:06; Admin Dose 400 MG; Start 02/01/17 at 21:00 Nicotine (Nicoderm 14 Mg/ 24hr) 1 patch DAILY TRANSDERM ; Start 02/01/17 at 18: 30 COLT LISA MD Feb 02, 2017 14:05
[2017-02-02 20:00] VITALS: BP 124/64; RESP 18
[2017-02-02] MEDS: SENNA TAB PO SCH (21:00)
[2017-02-02] MEDS: GABAPENTIN 400 MG CAP PO SCH (21:00)
[2017-02-02] MEDS: MIRTAZAPINE 15 MG TAB PO SCH (21:00)
[2017-02-03] MEDS: HYDROCODONE/APAP (7.5/325) TAB PO PRN (00:51)
[2017-02-03 02:00] VITALS: BP 127/70; RESP 18
[2017-02-03] MEDS: HYDROmorphONE 1 MG/ML SYG IV PRN ×7 (04:17→22:28)
[2017-02-03] MEDS: ALPRAZOLAM 0.5 MG TAB PO SCH ×3 (06:00→20:24)
[2017-02-03 08:03] VITALS: BP 128/81; RESP 19
[2017-02-03] MEDS: NICOTINE (14 MG/24 HR) PATCH TRANSDERM SCH (09:00)
[2017-02-03] MEDS: DULOXETINE 30 MG CAP DR PO SCH (09:16)
[2017-02-03] MEDS: oxyCODONE (CR) 10 MG TAB [oxyCONTIN] PO SCH ×3 (09:16→21:00)
[2017-02-03] MEDS: DOCUSATE SODIUM 100 MG CAP PO SCH ×2 (09:16→20:20)
[2017-02-03] MEDS: METHOCARBAMOL 500 MG TAB PO SCH ×2 (09:16→13:29)
--- NOTE | 2017-02-03 11:21 | CONS ---
Date/Time of Note Date/Time of Note DATE: 02/03/17 TIME: 11:19 Consult Date/Type/Reason Admit Date/Time Jan 31, 2017 at 15:38 Subjective Much better today Objective pulm-cta min assist ambulation 100 feet Vital Signs Date Time Temp Pulse Resp B/P Pulse Ox O2 Delivery O2 Flow Rate FiO2 02/03/17 08:03 98.7 83 19 128/81 100 02/01/17 20:00 Room Air Intake and Output 02/02/17 02/02/17 02/03/17 15:00 23:00 07:00 Intake Total 2400 ml 1100 ml Output Total 1600 ml 1500 ml Balance 800 ml -400 ml Results/Medications Result Diagram: 02/01/1761802/01/17618 Medications Current Medications Methocarbamol (Robaxin) 500 mg TID PO Last administered on 02/03/17 09:16; Admin Dose 500 MG; Start 01/31/17 at 21:00 Naloxone HCl (Narcan) 0.2 mg Q2M PRN IV DECREASED REPIRATORY RATE; Start 01/31 at 16:30 Ondansetron HCl (Zofran Inj) 4 mg Q6H PRN IV NAUSEA AND/OR VOMITING; Start at 16:30 Oxycodone HCl (Oxycontin) 20 mg BID PO Last administered on 02/03/17 09:16; Admin Dose 20 MG; Start 01/31/17 at 21:00 Prochlorperazine (Compazine) 10 mg Q4H PRN PO NAUSEA AND/OR VOMITING; Start at 17:00 Acetaminophen (Tylenol Tab) 650 mg Q4H PRN PO PAIN AND OR ELEVATED TEMP; Start 01/31/17 at 17:00 Alprazolam (Xanax) 0.5 mg Q12H PRN PO ANXIETY Last administered on 02/01/17 06 :13; Admin Dose 0.5 MG; Start 01/31/17 at 17:00 Duloxetine HCl (Cymbalta) 30 mg DAILY PO Last administered on 02/03/17 09:16; Admin Dose 30 MG; Start 02/01/17 at 09:00 Acetaminophen/ Hydrocodone Bitart ([place] (5/325)) 1 tab Q4H PRN PO PAIN LEVEL 1 -5; Start 01/31/17 at 17:00 Acetaminophen/ Hydrocodone Bitart ([place] (5/325)) 2 tab Q4H PRN PO PAIN LEVEL 6 -10 Last administered on 02/01/17 05:56; Admin Dose 2 TAB; Start 01/31/17 at 17:00 Docusate Sodium (Colace) 100 mg BID PO Last administered on 02/03/17 09:16; Admin Dose 100 MG; Start 01/31/17 at 21:00 Senna (Senokot) 1 tab QHS PO Last administered on 02/02/17 21:00; Admin Dose 1 TAB; Start 01/31/17 at 21:00 Bisacodyl (Dulcolax Supp) 10 mg DAILY PRN [place] CONSTIPATION; Start 01/31/17 at 18:00 Magnesium Hydroxide (Milk Of Mag) 30 ml BID PRN PO CONSTIPATION; Start at 18:00 Lactulose (Enulose) 20 gm DAILY PRN PO CONSTIPATION Last administered on 08:59; Admin Dose 20 GM; Start 01/31/17 at 18:00 Acetaminophen/ Hydrocodone Bitart ([place] (7.5-325)) 2 tab Q4H PRN PO PAIN LEVEL 7-10 Last administered on 02/03/17 00:51; Admin Dose 2 TAB; Start at 12:30 Hydromorphone HCl (Dilaudid) 1 mg Q3 PRN IV PAIN Last administered on 10:35; Admin Dose 1 MG; Start 02/01/17 at 17:37 Alprazolam (Xanax) 0.5 mg Q8 PO Last administered on 02/02/17 21:03; Admin Dose 0.5 MG; Start 02/01/17 at 22:00 Gabapentin (Neurontin) 400 mg QHS PO Last administered on 02/02/17 21:00; Admin Dose 400 MG; Start 02/01/17 at 21:00 Nicotine (Nicoderm 14 Mg/ 24hr) 1 patch DAILY TRANSDERM ; Start 02/01/17 at 18: 30 Mirtazapine (Remeron) 15 mg HS PO Last administered on 02/02/17 21:00; Admin Dose 15 MG; Start 02/02/17 at 21:00 Assessment/Plan Additional Assessment/Plan Rehab- Lumbar degenerative disk disease and spinal stenosis with radiculopathy , status post lumbar fusion. Continue current treatment plan Acute pain syndrome-improved Anxiety. AMBER CLIFFORD MD Feb 03, 2017 11:21
--- NOTE | 2017-02-03 11:21 | CONS ---
Date/Time of Note Date/Time of Note DATE: 02/03/17 TIME: 11:19 Consult Date/Type/Reason Admit Date/Time Jan 31, 2017 at 15:38 Subjective Much better today Objective pulm-cta min assist ambulation 100 feet Vital Signs Date Time Temp Pulse Resp B/P Pulse Ox O2 Delivery O2 Flow Rate FiO2 02/03/17 08:03 98.7 83 19 128/81 100 02/01/17 20:00 Room Air Intake and Output 02/02/17 02/02/17 02/03/17 15:00 23:00 07:00 Intake Total 2400 ml 1100 ml Output Total 1600 ml 1500 ml Balance 800 ml -400 ml Results/Medications Result Diagram: 02/01/1761802/01/17618 Medications Current Medications Methocarbamol (Robaxin) 500 mg TID PO Last administered on 02/03/17 09:16; Admin Dose 500 MG; Start 01/31/17 at 21:00 Naloxone HCl (Narcan) 0.2 mg Q2M PRN IV DECREASED REPIRATORY RATE; Start 01/31 at 16:30 Ondansetron HCl (Zofran Inj) 4 mg Q6H PRN IV NAUSEA AND/OR VOMITING; Start at 16:30 Oxycodone HCl (Oxycontin) 20 mg BID PO Last administered on 02/03/17 09:16; Admin Dose 20 MG; Start 01/31/17 at 21:00 Prochlorperazine (Compazine) 10 mg Q4H PRN PO NAUSEA AND/OR VOMITING; Start at 17:00 Acetaminophen (Tylenol Tab) 650 mg Q4H PRN PO PAIN AND OR ELEVATED TEMP; Start 01/31/17 at 17:00 Alprazolam (Xanax) 0.5 mg Q12H PRN PO ANXIETY Last administered on 02/01/17 06 :13; Admin Dose 0.5 MG; Start 01/31/17 at 17:00 Duloxetine HCl (Cymbalta) 30 mg DAILY PO Last administered on 02/03/17 09:16; Admin Dose 30 MG; Start 02/01/17 at 09:00 Acetaminophen/ Hydrocodone Bitart ([place] (5/325)) 1 tab Q4H PRN PO PAIN LEVEL 1 -5; Start 01/31/17 at 17:00 Acetaminophen/ Hydrocodone Bitart ([place] (5/325)) 2 tab Q4H PRN PO PAIN LEVEL 6 -10 Last administered on 02/01/17 05:56; Admin Dose 2 TAB; Start 01/31/17 at 17:00 Docusate Sodium (Colace) 100 mg BID PO Last administered on 02/03/17 09:16; Admin Dose 100 MG; Start 01/31/17 at 21:00 Senna (Senokot) 1 tab QHS PO Last administered on 02/02/17 21:00; Admin Dose 1 TAB; Start 01/31/17 at 21:00 Bisacodyl (Dulcolax Supp) [address] [place] CONSTIPATION; Start 01/31/17 at 18:00 Magnesium Hydroxide (Milk Of Mag) 30 ml BID PRN PO CONSTIPATION; Start at 18:00 Lactulose (Enulose) 20 gm DAILY PRN PO CONSTIPATION Last administered on 08:59; Admin Dose 20 GM; Start 01/31/17 at 18:00 Acetaminophen/ Hydrocodone Bitart ([place] (7.5-325)) 2 tab Q4H PRN PO PAIN LEVEL 7-10 Last administered on 02/03/17 00:51; Admin Dose 2 TAB; Start at 12:30 Hydromorphone HCl (Dilaudid) 1 mg Q3 PRN IV PAIN Last administered on 10:35; Admin Dose 1 MG; Start 02/01/17 at 17:37 Alprazolam (Xanax) 0.5 mg Q8 PO Last administered on 02/02/17 21:03; Admin Dose 0.5 MG; Start 02/01/17 at 22:00 Gabapentin (Neurontin) 400 mg QHS PO Last administered on 02/02/17 21:00; Admin Dose 400 MG; Start 02/01/17 at 21:00 Nicotine (Nicoderm 14 Mg/ 24hr) 1 patch DAILY TRANSDERM ; Start 02/01/17 at 18: 30 Mirtazapine (Remeron) 15 mg HS PO Last administered on 02/02/17 21:00; Admin Dose 15 MG; Start 02/02/17 at 21:00 Assessment/Plan Additional Assessment/Plan Rehab- Lumbar degenerative disk disease and spinal stenosis with radiculopathy , status post lumbar fusion. Continue current treatment plan Acute pain syndrome-improved Anxiety. AMBER CLIFFORD MD Feb 03, 2017 11:21
--- NOTE | 2017-02-03 11:21 | CONS ---
Date/Time of Note Date/Time of Note DATE: 02/03/17 TIME: 11:19 Consult Date/Type/Reason Admit Date/Time Jan 31, 2017 at 15:38 Subjective Much better today Objective pulm-cta min assist ambulation 100 feet Vital Signs Date Time Temp Pulse Resp B/P Pulse Ox O2 Delivery O2 Flow Rate FiO2 02/03/17 08:03 98.7 83 19 128/81 100 02/01/17 20:00 Room Air Intake and Output 02/02/17 02/02/17 02/03/17 15:00 23:00 07:00 Intake Total 2400 ml 1100 ml Output Total 1600 ml 1500 ml Balance 800 ml -400 ml Results/Medications Result Diagram: 02/01/1761802/01/17618 Medications Current Medications Methocarbamol (Robaxin) 500 mg TID PO Last administered on 02/03/17 09:16; Admin Dose 500 MG; Start 01/31/17 at 21:00 Naloxone HCl (Narcan) 0.2 mg Q2M PRN IV DECREASED REPIRATORY RATE; Start 01/31 at 16:30 Ondansetron HCl (Zofran Inj) 4 mg Q6H PRN IV NAUSEA AND/OR VOMITING; Start at 16:30 Oxycodone HCl (Oxycontin) 20 mg BID PO Last administered on 02/03/17 09:16; Admin Dose 20 MG; Start 01/31/17 at 21:00 Prochlorperazine (Compazine) 10 mg Q4H PRN PO NAUSEA AND/OR VOMITING; Start at 17:00 Acetaminophen (Tylenol Tab) 650 mg Q4H PRN PO PAIN AND OR ELEVATED TEMP; Start 01/31/17 at 17:00 Alprazolam (Xanax) 0.5 mg Q12H PRN PO ANXIETY Last administered on 02/01/17 06 :13; Admin Dose 0.5 MG; Start 01/31/17 at 17:00 Duloxetine HCl (Cymbalta) 30 mg DAILY PO Last administered on 02/03/17 09:16; Admin Dose 30 MG; Start 02/01/17 at 09:00 Acetaminophen/ Hydrocodone Bitart ([place] (5/325)) 1 tab Q4H PRN PO PAIN LEVEL 1 -5; Start 01/31/17 at 17:00 Acetaminophen/ Hydrocodone Bitart ([place] (5/325)) 2 tab Q4H PRN PO PAIN LEVEL 6 -10 Last administered on 02/01/17 05:56; Admin Dose 2 TAB; Start 01/31/17 at 17:00 Docusate Sodium (Colace) 100 mg BID PO Last administered on 02/03/17 09:16; Admin Dose 100 MG; Start 01/31/17 at 21:00 Senna (Senokot) 1 tab QHS PO Last administered on 02/02/17 21:00; Admin Dose 1 TAB; Start 01/31/17 at 21:00 Bisacodyl (Dulcolax Supp) 10 mg DAILY PRN [place] CONSTIPATION; Start 01/31/17 at 18:00 Magnesium Hydroxide (Milk Of Mag) 30 ml BID PRN PO CONSTIPATION; Start at 18:00 Lactulose (Enulose) 20 gm DAILY PRN PO CONSTIPATION Last administered on 08:59; Admin Dose 20 GM; Start 01/31/17 at 18:00 Acetaminophen/ Hydrocodone Bitart ([place] (7.5-325)) 2 tab Q4H PRN PO PAIN LEVEL 7-10 Last administered on 02/03/17 00:51; Admin Dose 2 TAB; Start at 12:30 Hydromorphone HCl (Dilaudid) 1 mg Q3 PRN IV PAIN Last administered on 10:35; Admin Dose 1 MG; Start 02/01/17 at 17:37 Alprazolam (Xanax) 0.5 mg Q8 PO Last administered on 02/02/17 21:03; Admin Dose 0.5 MG; Start 02/01/17 at 22:00 Gabapentin (Neurontin) 400 mg QHS PO Last administered on 02/02/17 21:00; Admin Dose 400 MG; Start 02/01/17 at 21:00 Nicotine (Nicoderm 14 Mg/ 24hr) 1 patch DAILY TRANSDERM ; Start 02/01/17 at 18: 30 Mirtazapine (Remeron) 15 mg HS PO Last administered on 02/02/17 21:00; Admin Dose 15 MG; Start 02/02/17 at 21:00 Assessment/Plan Additional Assessment/Plan Rehab- Lumbar degenerative disk disease and spinal stenosis with radiculopathy , status post lumbar fusion. Continue current treatment plan Acute pain syndrome-improved Anxiety. AMBER CLIFFORD MD Feb 03, 2017 11:21
--- NOTE | 2017-02-03 13:55 | PN ---
Date/Time of Note Date/Time of Note DATE: 02/03/17 TIME: 13:52 Assessment/Plan VTE Prophylaxis VTE Prophylaxis Intervention: SCD's Lines/Catheters IV [facility]from [facility] Saline Lock Urinary Cath still in place: No Assessment/Plan Problems: (1) S/P lumbar spinal fusion Onset Date: ~ 01/27/2017 Status: Acute Comment: He is progressing along nicely. He may be a consideration to change his muscle relaxant to a different compound as he is having only partial response to the Robaxin. His rehabilitation potential actually is quite good. This will be the primary focus while we work on the other issues. Once his back is doing better than we can redistribute our attentions to his anxiety disorder, benzodiazepine dependence, narcotics consistent dependence, tobacco abuse (2) Tobacco dependence Status: Chronic Comment: He has a patch on and is tolerating his current status well (3) Benzodiazepine dependence Status: Chronic Comment: He is on a steady state benzodiazepine in order with up in the lower limit of what he took on a regular basis. (4) Anxiety disorder Status: Chronic Comment: He is tolerating the medications for anxiety disorder and actually got sleep. I would continue the present regimen he is on. Please note the likelihood of getting him completely off of benzodiazepines given that he has had over 10 years on is going to be small Qualifiers: Anxiety disorder type: generalized anxiety disorder Qualified Code: F41.1 - Generalized anxiety disorder (5) Persistent disorder of initiating or maintaining sleep Status: Chronic Comment: Presently doing okay Subjective 24 Hr Interval Summary Free Text/Dictation Patient reports he is having muscle spasms, and pain however he is also moving around better and tolerating his activities better. Constitutional: no complaints Respiratory: no complaints Cardiovascular: no complaints Gastrointestinal: no complaints Musculoskeletal: back pain, restricted range of motion (At back) Neurologic: other (Still with lower extremity radicular symptoms in a shrinking fashion) Psychological: anxiety (Reports he was able to sleep last night) Exam/Review of Systems Vital Signs Vitals Vital Signs Date Time Temp Pulse Resp B/P Pulse Ox O2 Delivery O2 Flow Rate FiO2 02/03/17 08:03 98.7 83 19 128/81 100 02/01/17 20:00 Room Air Intake and Output 02/02/17 02/02/17 02/03/17 15:00 23:00 07:00 Intake Total 2400 ml 1100 ml Output Total 1600 ml 1500 ml Balance 800 ml -400 ml Exam Constitutional: alert, oriented Respiratory: clear to auscultation, normal air movement Cardiovascular: nl pulses, regular rate and rhythm Gastrointestinal: nl liver, spleen, non-tender, soft Results Result Diagram: 02/01/1761802/01/17618 Medications Medications Current Medications Methocarbamol (Robaxin) 500 mg TID PO Last administered on 02/03/17 13:29; Admin Dose 500 MG; Start 01/31/17 at 21:00 Naloxone HCl (Narcan) 0.2 mg Q2M PRN IV DECREASED REPIRATORY RATE; Start 01/31 at 16:30 Ondansetron HCl (Zofran Inj) 4 mg Q6H PRN IV NAUSEA AND/OR VOMITING; Start at 16:30 Oxycodone HCl (Oxycontin) 20 mg BID PO Last administered on 02/03/17 09:16; Admin Dose 20 MG; Start 01/31/17 at 21:00 Prochlorperazine (Compazine) 10 mg Q4H PRN PO NAUSEA AND/OR VOMITING; Start at 17:00 Acetaminophen (Tylenol Tab) 650 mg Q4H PRN PO PAIN AND OR ELEVATED TEMP; Start 01/31/17 at 17:00 Alprazolam (Xanax) 0.5 mg Q12H PRN PO ANXIETY Last administered on 02/01/17 06 :13; Admin Dose 0.5 MG; Start 01/31/17 at 17:00 Duloxetine HCl (Cymbalta) 30 mg DAILY PO Last administered on 02/03/17 09:16; Admin Dose 30 MG; Start 02/01/17 at 09:00 Acetaminophen/ Hydrocodone Bitart ([place] (5/325)) 1 tab Q4H PRN PO PAIN LEVEL 1 -5; Start 01/31/17 at 17:00 Acetaminophen/ Hydrocodone Bitart ([place] (5/325)) 2 tab Q4H PRN PO PAIN LEVEL 6 -10 Last administered on 02/01/17 05:56; Admin Dose 2 TAB; Start 01/31/17 at 17:00 Docusate Sodium (Colace) 100 mg BID PO Last administered on 02/03/17 09:16; Admin Dose 100 MG; Start 01/31/17 at 21:00 Senna (Senokot) 1 tab QHS PO Last administered on 02/02/17 21:00; Admin Dose 1 TAB; Start 01/31/17 at 21:00 Bisacodyl (Dulcolax Supp) 10 mg DAILY PRN [place] CONSTIPATION; Start 01/31/17 at 18:00 Magnesium Hydroxide (Milk Of Mag) 30 ml BID PRN PO CONSTIPATION; Start at 18:00 Lactulose (Enulose) 20 gm DAILY PRN PO CONSTIPATION Last administered on 08:59; Admin Dose 20 GM; Start 01/31/17 at 18:00 Acetaminophen/ Hydrocodone Bitart ([place] (7.5-325)) 2 tab Q4H PRN PO PAIN LEVEL 7-10 Last administered on 02/03/17 00:51; Admin Dose 2 TAB; Start at 12:30 Hydromorphone HCl (Dilaudid) 1 mg Q3 PRN IV PAIN Last administered on 13:29; Admin Dose 1 MG; Start 02/01/17 at 17:37 Alprazolam (Xanax) 0.5 mg Q8 PO Last administered on 02/03/17 13:29; Admin Dose 0.5 MG; Start 02/01/17 at 22:00 Gabapentin (Neurontin) 400 mg QHS PO Last administered on 02/02/17 21:00; Admin Dose 400 MG; Start 02/01/17 at 21:00 Nicotine (Nicoderm 14 Mg/ 24hr) 1 patch DAILY TRANSDERM ; Start 02/01/17 at 18: 30 Mirtazapine (Remeron) 15 mg HS PO Last administered on 02/02/17 21:00; Admin Dose 15 MG; Start 02/02/17 at 21:00 COLT LISA MD Feb 03, 2017 13:55
[2017-02-03 14:00] VITALS: BP 127/77; RESP 18
[2017-02-03 20:00] VITALS: BP 119/63; RESP 18
[2017-02-03] MEDS: GABAPENTIN 400 MG CAP PO SCH (20:20)
[2017-02-03] MEDS: MIRTAZAPINE 15 MG TAB PO SCH (20:20)
[2017-02-03] MEDS: SENNA TAB PO SCH (20:20)
[2017-02-03] MEDS: TIZANIDINE 2 MG TAB PO SCH (20:21)
[2017-02-04 02:00] VITALS: BP 122/67; RESP 18
[2017-02-04] MEDS: HYDROmorphONE 1 MG/ML SYG IV PRN ×5 (03:45→21:06)
[2017-02-04] MEDS: ALPRAZOLAM 0.5 MG TAB PO SCH ×3 (05:11→21:03)
[2017-02-04 07:30] VITALS: BP 127/78; RESP 18
[2017-02-04] MEDS: TIZANIDINE 2 MG TAB PO SCH ×3 (08:48→21:02)
[2017-02-04] MEDS: oxyCODONE (CR) 10 MG TAB [oxyCONTIN] PO SCH ×2 (08:48→21:00)
[2017-02-04] MEDS: DOCUSATE SODIUM 100 MG CAP PO SCH ×2 (08:49→21:03)
[2017-02-04] MEDS: DULOXETINE 30 MG CAP DR PO SCH (08:49)
[2017-02-04] MEDS: NICOTINE (14 MG/24 HR) PATCH TRANSDERM SCH (08:50)
--- NOTE | 2017-02-04 09:36 | CONS ---
Date/Time of Note Date/Time of Note DATE: 02/04/17 TIME: 09:36 Consult Date/Type/Reason Admit Date/Time Jan 31, 2017 at 15:38 Subjective Patient reports feeling much better Objective pulm-cta sba ambulation Vital Signs Date Time Temp Pulse Resp B/P Pulse Ox O2 Delivery O2 Flow Rate FiO2 02/04/17 07:30 98.8 78 18 127/78 99 02/01/17 20:00 Room Air Intake and Output 02/03/17 02/03/17 02/04/17 15:00 23:00 07:00 Intake Total 1200 ml 1100 ml Output Total 1100 ml 350 ml Balance 100 ml 750 ml Results/Medications Result Diagram: 02/01/1761802/01/17618 Medications Current Medications Naloxone HCl (Narcan) 0.2 mg Q2M PRN IV DECREASED REPIRATORY RATE; Start 01/31 at 16:30 Ondansetron HCl (Zofran Inj) 4 mg Q6H PRN IV NAUSEA AND/OR VOMITING; Start at 16:30 Oxycodone HCl (Oxycontin) 20 mg BID PO Last administered on 02/04/17 08:48; Admin Dose 20 MG; Start 01/31/17 at 21:00 Prochlorperazine (Compazine) 10 mg Q4H PRN PO NAUSEA AND/OR VOMITING; Start at 17:00 Acetaminophen (Tylenol Tab) 650 mg Q4H PRN PO PAIN AND OR ELEVATED TEMP; Start 01/31/17 at 17:00 Alprazolam (Xanax) 0.5 mg Q12H PRN PO ANXIETY Last administered on 02/01/17 06 :13; Admin Dose 0.5 MG; Start 01/31/17 at 17:00 Duloxetine HCl (Cymbalta) 30 mg DAILY PO Last administered on 02/04/17 08:49; Admin Dose 30 MG; Start 02/01/17 at 09:00 Acetaminophen/ Hydrocodone Bitart ([place] (5/325)) 1 tab Q4H PRN PO PAIN LEVEL 1 -5; Start 01/31/17 at 17:00 Acetaminophen/ Hydrocodone Bitart ([place] (5/325)) 2 tab Q4H PRN PO PAIN LEVEL 6 -10 Last administered on 02/01/17 05:56; Admin Dose 2 TAB; Start 01/31/17 at 17:00 Docusate Sodium (Colace) 100 mg BID PO Last administered on 02/04/17 08:49; Admin Dose 100 MG; Start 01/31/17 at 21:00 Senna (Senokot) 1 tab QHS PO Last administered on 02/03/17 20:20; Admin Dose 1 TAB; Start 01/31/17 at 21:00 Bisacodyl (Dulcolax Supp) 10 mg DAILY PRN [place] CONSTIPATION Last administered on 02/03/17 20:00; Admin Dose 10 MG; Start 01/31/17 at 18:00 Magnesium Hydroxide (Milk Of Mag) 30 ml BID PRN PO CONSTIPATION; Start at 18:00 Lactulose (Enulose) 20 gm DAILY PRN PO CONSTIPATION Last administered on 08:59; Admin Dose 20 GM; Start 01/31/17 at 18:00 Acetaminophen/ Hydrocodone Bitart ([place] (7.5-325)) 2 tab Q4H PRN PO PAIN LEVEL 7-10 Last administered on 02/03/17 00:51; Admin Dose 2 TAB; Start at 12:30 Hydromorphone HCl (Dilaudid) 1 mg Q3 PRN IV PAIN Last administered on 07:27; Admin Dose 1 MG; Start 02/01/17 at 17:37 Alprazolam (Xanax) 0.5 mg Q8 PO Last administered on 02/04/17 05:11; Admin Dose 0.5 MG; Start 02/01/17 at 22:00 Gabapentin (Neurontin) 400 mg QHS PO Last administered on 02/03/17 20:20; Admin Dose 400 MG; Start 02/01/17 at 21:00 Nicotine (Nicoderm 14 Mg/ 24hr) 1 patch DAILY TRANSDERM ; Start 02/01/17 at 18: 30 Mirtazapine (Remeron) 15 mg HS PO Last administered on 02/03/17 20:20; Admin Dose 15 MG; Start 02/02/17 at 21:00 Tizanidine HCl (Zanaflex) 2 mg TID PO Last administered on 02/04/17 08:48; Admin Dose 2 MG; Start 02/03/17 at 21:00 Assessment/Plan Additional Assessment/Plan Rehab- Lumbar degenerative disk disease and spinal stenosis with radiculopathy , status post lumbar fusion. Continue current treatment plan, working towards home Monday Acute pain syndrome-improved Anxiety. AMBER CLIFFORD MD Feb 04, 2017 09:36
--- NOTE | 2017-02-04 09:36 | CONS ---
Date/Time of Note Date/Time of Note DATE: 02/04/17 TIME: 09:36 Consult Date/Type/Reason Admit Date/Time Jan 31, 2017 at 15:38 Subjective Patient reports feeling much better Objective pulm-cta sba ambulation Vital Signs Date Time Temp Pulse Resp B/P Pulse Ox O2 Delivery O2 Flow Rate FiO2 02/04/17 07:30 98.8 78 18 127/78 99 02/01/17 20:00 Room Air Intake and Output 02/03/17 02/03/17 02/04/17 15:00 23:00 07:00 Intake Total 1200 ml 1100 ml Output Total 1100 ml 350 ml Balance 100 ml 750 ml Results/Medications Result Diagram: 02/01/1761802/01/17618 Medications Current Medications Naloxone HCl (Narcan) 0.2 mg Q2M PRN IV DECREASED REPIRATORY RATE; Start 01/31 at 16:30 Ondansetron HCl (Zofran Inj) 4 mg Q6H PRN IV NAUSEA AND/OR VOMITING; Start at 16:30 Oxycodone HCl (Oxycontin) 20 mg BID PO Last administered on 02/04/17 08:48; Admin Dose 20 MG; Start 01/31/17 at 21:00 Prochlorperazine (Compazine) 10 mg Q4H PRN PO NAUSEA AND/OR VOMITING; Start at 17:00 Acetaminophen (Tylenol Tab) 650 mg Q4H PRN PO PAIN AND OR ELEVATED TEMP; Start 01/31/17 at 17:00 Alprazolam (Xanax) 0.5 mg Q12H PRN PO ANXIETY Last administered on 02/01/17 06 :13; Admin Dose 0.5 MG; Start 01/31/17 at 17:00 Duloxetine HCl (Cymbalta) 30 mg DAILY PO Last administered on 02/04/17 08:49; Admin Dose 30 MG; Start 02/01/17 at 09:00 Acetaminophen/ Hydrocodone Bitart ([place] (5/325)) 1 tab Q4H PRN PO PAIN LEVEL 1 -5; Start 01/31/17 at 17:00 Acetaminophen/ Hydrocodone Bitart ([place] (5/325)) 2 tab Q4H PRN PO PAIN LEVEL 6 -10 Last administered on 02/01/17 05:56; Admin Dose 2 TAB; Start 01/31/17 at 17:00 Docusate Sodium (Colace) 100 mg BID PO Last administered on 02/04/17 08:49; Admin Dose 100 MG; Start 01/31/17 at 21:00 Senna (Senokot) 1 tab QHS PO Last administered on 02/03/17 20:20; Admin Dose 1 TAB; Start 01/31/17 at 21:00 Bisacodyl (Dulcolax Supp) 10 mg DAILY PRN [place] CONSTIPATION Last administered on 02/03/17 20:00; Admin Dose 10 MG; Start 01/31/17 at 18:00 Magnesium Hydroxide (Milk Of Mag) 30 ml BID PRN PO CONSTIPATION; Start at 18:00 Lactulose (Enulose) 20 gm DAILY PRN PO CONSTIPATION Last administered on 08:59; Admin Dose 20 GM; Start 01/31/17 at 18:00 Acetaminophen/ Hydrocodone Bitart ([place] (7.5-325)) 2 tab Q4H PRN PO PAIN LEVEL 7-10 Last administered on 02/03/17 00:51; Admin Dose 2 TAB; Start at 12:30 Hydromorphone HCl (Dilaudid) 1 mg Q3 PRN IV PAIN Last administered on 07:27; Admin Dose 1 MG; Start 02/01/17 at 17:37 Alprazolam (Xanax) 0.5 mg Q8 PO Last administered on 02/04/17 05:11; Admin Dose 0.5 MG; Start 02/01/17 at 22:00 Gabapentin (Neurontin) 400 mg QHS PO Last administered on 02/03/17 20:20; Admin Dose 400 MG; Start 02/01/17 at 21:00 Nicotine (Nicoderm 14 Mg/ 24hr) 1 patch DAILY TRANSDERM ; Start 02/01/17 at 18: 30 Mirtazapine (Remeron) 15 mg HS PO Last administered on 02/03/17 20:20; Admin Dose 15 MG; Start 02/02/17 at 21:00 Tizanidine HCl (Zanaflex) 2 mg TID PO Last administered on 02/04/17 08:48; Admin Dose 2 MG; Start 02/03/17 at 21:00 Assessment/Plan Additional Assessment/Plan Rehab- Lumbar degenerative disk disease and spinal stenosis with radiculopathy , status post lumbar fusion. Continue current treatment plan, working towards home Monday Acute pain syndrome-improved Anxiety. AMBER CLIFFORD MD Feb 04, 2017 09:36
--- NOTE | 2017-02-04 09:36 | CONS ---
Date/Time of Note Date/Time of Note DATE: 02/04/17 TIME: 09:36 Consult Date/Type/Reason Admit Date/Time Jan 31, 2017 at 15:38 Subjective Patient reports feeling much better Objective pulm-cta sba ambulation Vital Signs Date Time Temp Pulse Resp B/P Pulse Ox O2 Delivery O2 Flow Rate FiO2 02/04/17 07:30 98.8 78 18 127/78 99 02/01/17 20:00 Room Air Intake and Output 02/03/17 02/03/17 02/04/17 15:00 23:00 07:00 Intake Total 1200 ml 1100 ml Output Total 1100 ml 350 ml Balance 100 ml 750 ml Results/Medications Result Diagram: 02/01/1761802/01/17618 Medications Current Medications Naloxone HCl (Narcan) 0.2 mg Q2M PRN IV DECREASED REPIRATORY RATE; Start 01/31 at 16:30 Ondansetron HCl (Zofran Inj) 4 mg Q6H PRN IV NAUSEA AND/OR VOMITING; Start at 16:30 Oxycodone HCl (Oxycontin) 20 mg BID PO Last administered on 02/04/17 08:48; Admin Dose 20 MG; Start 01/31/17 at 21:00 Prochlorperazine (Compazine) 10 mg Q4H PRN PO NAUSEA AND/OR VOMITING; Start at 17:00 Acetaminophen (Tylenol Tab) 650 mg Q4H PRN PO PAIN AND OR ELEVATED TEMP; Start 01/31/17 at 17:00 Alprazolam (Xanax) 0.5 mg Q12H PRN PO ANXIETY Last administered on 02/01/17 06 :13; Admin Dose 0.5 MG; Start 01/31/17 at 17:00 Duloxetine HCl (Cymbalta) 30 mg DAILY PO Last administered on 02/04/17 08:49; Admin Dose 30 MG; Start 02/01/17 at 09:00 Acetaminophen/ Hydrocodone Bitart ([place] (5/325)) 1 tab Q4H PRN PO PAIN LEVEL 1 -5; Start 01/31/17 at 17:00 Acetaminophen/ Hydrocodone Bitart ([place] (5/325)) 2 tab Q4H PRN PO PAIN LEVEL 6 -10 Last administered on 02/01/17 05:56; Admin Dose 2 TAB; Start 01/31/17 at 17:00 Docusate Sodium (Colace) 100 mg BID PO Last administered on 02/04/17 08:49; Admin Dose 100 MG; Start 01/31/17 at 21:00 Senna (Senokot) 1 tab QHS PO Last administered on 02/03/17 20:20; Admin Dose 1 TAB; Start 01/31/17 at 21:00 Bisacodyl (Dulcolax Supp) 10 mg DAILY PRN [place] CONSTIPATION Last administered on 02/03/17 20:00; Admin Dose 10 MG; Start 01/31/17 at 18:00 Magnesium Hydroxide (Milk Of Mag) 30 ml BID PRN PO CONSTIPATION; Start at 18:00 Lactulose (Enulose) 20 gm DAILY PRN PO CONSTIPATION Last administered on 08:59; Admin Dose 20 GM; Start 01/31/17 at 18:00 Acetaminophen/ Hydrocodone Bitart ([place] (7.5-325)) 2 tab Q4H PRN PO PAIN LEVEL 7-10 Last administered on 02/03/17 00:51; Admin Dose 2 TAB; Start at 12:30 Hydromorphone HCl (Dilaudid) 1 mg Q3 PRN IV PAIN Last administered on 07:27; Admin Dose 1 MG; Start 02/01/17 at 17:37 Alprazolam (Xanax) 0.5 mg Q8 PO Last administered on 02/04/17 05:11; Admin Dose 0.5 MG; Start 02/01/17 at 22:00 Gabapentin (Neurontin) 400 mg QHS PO Last administered on 02/03/17 20:20; Admin Dose 400 MG; Start 02/01/17 at 21:00 Nicotine (Nicoderm 14 Mg/ 24hr) 1 patch DAILY TRANSDERM ; Start 02/01/17 at 18: 30 Mirtazapine (Remeron) 15 mg HS PO Last administered on 02/03/17 20:20; Admin Dose 15 MG; Start 02/02/17 at 21:00 Tizanidine HCl (Zanaflex) 2 mg TID PO Last administered on 02/04/17 08:48; Admin Dose 2 MG; Start 02/03/17 at 21:00 Assessment/Plan Additional Assessment/Plan Rehab- Lumbar degenerative disk disease and spinal stenosis with radiculopathy , status post lumbar fusion. Continue current treatment plan, working towards home Monday Acute pain syndrome-improved Anxiety. AMBER CLIFFORD MD Feb 04, 2017 09:36
--- NOTE | 2017-02-04 11:57 | PN ---
Date/Time of Note Date/Time of Note DATE: 02/04/17 TIME: 11:54 Assessment/Plan VTE Prophylaxis VTE Prophylaxis Intervention: ambulation, SCD's Lines/Catheters IV Catheter Type (from Nrs): Saline Lock Urinary Cath still in place: No Assessment/Plan Problems: (1) Persistent disorder of initiating or maintaining sleep Status: Chronic Comment: Pt.'s insomnia may be due to restless leg syndrome. Will add mirapex 0.125 mg nightly and see if helps maintain sleep better (2) Anxiety disorder Status: Chronic Comment: Cont. current treatment Qualifiers: Anxiety disorder type: generalized anxiety disorder Qualified Code: F41.1 - Generalized anxiety disorder (3) S/P lumbar spinal fusion Onset Date: ~ 01/27/2017 Status: Acute Comment: Switched muscle relaxant and seems to be doing well. Cont. rehab Subjective 24 Hr Interval Summary Constitutional: improved (markedly better yesterday and today), no complaints Respiratory: no complaints Cardiovascular: no complaints Gastrointestinal: no complaints Genitourinary: no complaints Musculoskeletal: no complaints Neurologic: other (terminal insomnia continues. Report sleeping and legs kick and wake him) Exam/Review of Systems Vital Signs Vitals VS - Last 72 Hours, by Label Date Time Temp Pulse Resp B/P Pulse Ox O2 Delivery O2 Flow Rate FiO2 02/04/17 07:30 98.8 78 18 127/78 99 02/04/17 02:00 98.2 78 18 122/67 97 02/03/17 20:00 98.5 88 18 119/63 94 02/03/17 14:00 98.4 72 18 127/77 99 02/03/17 08:03 98.7 83 19 128/81 100 02/03/17 02:00 98.5 75 18 127/70 97 02/02/17 20:00 98.3 74 18 124/64 96 02/02/17 07:00 98.7 60 18 121/73 96 02/02/17 02:22 98.3 68 18 127/59 98 02/01/17 20:00 98.2 80 18 128/77 98 Room Air Vital Signs Date Time Temp Pulse Resp B/P Pulse Ox O2 Delivery O2 Flow Rate FiO2 02/04/17 07:30 98.8 78 18 127/78 99 02/01/17 20:00 Room Air Intake and Output 02/03/17 02/03/17 02/04/17 15:00 23:00 07:00 Intake Total 1200 ml 1100 ml Output Total 1100 ml 350 ml Balance 100 ml 750 ml Exam Constitutional: alert, oriented, well developed Respiratory: clear to auscultation, normal air movement Cardiovascular: nl pulses, regular rate and rhythm, No edema, No murmurs/extra sounds, No rub Gastrointestinal: bowel sounds, nl liver, spleen, soft, tender (apropriately tender post-op), No mass, No non-tender, No rebound or guarding Musculoskeletal: nl extremities to inspection Extremities: normal pulses, No clubbing, No cyanosis, No edema Neurological: 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, nl mental status, nl speech, nl strength Results Result Diagram: 02/01/1761802/01/17618 Medications Medications Current Medications Naloxone HCl (Narcan) 0.2 mg Q2M PRN IV DECREASED REPIRATORY RATE; Start 01/31 at 16:30 Ondansetron HCl (Zofran Inj) 4 mg Q6H PRN IV NAUSEA AND/OR VOMITING; Start at 16:30 Oxycodone HCl (Oxycontin) 20 mg BID PO Last administered on 02/04/17 08:48; Admin Dose 20 MG; Start 01/31/17 at 21:00 Prochlorperazine (Compazine) 10 mg Q4H PRN PO NAUSEA AND/OR VOMITING; Start at 17:00 Acetaminophen (Tylenol Tab) 650 mg Q4H PRN PO PAIN AND OR ELEVATED TEMP; Start 01/31/17 at 17:00 Alprazolam (Xanax) 0.5 mg Q12H PRN PO ANXIETY Last administered on 02/01/17 06 :13; Admin Dose 0.5 MG; Start 01/31/17 at 17:00 Duloxetine HCl (Cymbalta) 30 mg DAILY PO Last administered on 02/04/17 08:49; Admin Dose 30 MG; Start 02/01/17 at 09:00 Acetaminophen/ Hydrocodone Bitart ([place] (5/325)) 1 tab Q4H PRN PO PAIN LEVEL 1 -5; Start 01/31/17 at 17:00 Acetaminophen/ Hydrocodone Bitart ([place] (5/325)) 2 tab Q4H PRN PO PAIN LEVEL 6 -10 Last administered on 02/01/17 05:56; Admin Dose 2 TAB; Start 01/31/17 at 17:00 Docusate Sodium (Colace) 100 mg BID PO Last administered on 02/04/17 08:49; Admin Dose 100 MG; Start 01/31/17 at 21:00 Senna (Senokot) 1 tab QHS PO Last administered on 02/03/17 20:20; Admin Dose 1 TAB; Start 01/31/17 at 21:00 Bisacodyl (Dulcolax Supp) 10 mg DAILY PRN [place] CONSTIPATION Last administered on 02/03/17 20:00; Admin Dose 10 MG; Start 01/31/17 at 18:00 Magnesium Hydroxide (Milk Of Mag) 30 ml BID PRN PO CONSTIPATION; Start at 18:00 Lactulose (Enulose) 20 gm DAILY PRN PO CONSTIPATION Last administered on 08:59; Admin Dose 20 GM; Start 01/31/17 at 18:00 Acetaminophen/ Hydrocodone Bitart ([place] (7.5-325)) 2 tab Q4H PRN PO PAIN LEVEL 7-10 Last administered on 02/03/17 00:51; Admin Dose 2 TAB; Start at 12:30 Hydromorphone HCl (Dilaudid) 1 mg Q3 PRN IV PAIN Last administered on 10:52; Admin Dose 1 MG; Start 02/01/17 at 17:37 Alprazolam (Xanax) 0.5 mg Q8 PO Last administered on 02/04/17 05:11; Admin Dose 0.5 MG; Start 02/01/17 at 22:00 Gabapentin (Neurontin) 400 mg QHS PO Last administered on 02/03/17 20:20; Admin Dose 400 MG; Start 02/01/17 at 21:00 Nicotine (Nicoderm 14 Mg/ 24hr) 1 patch DAILY TRANSDERM ; Start 02/01/17 at 18: 30 Mirtazapine (Remeron) 15 mg HS PO Last administered on 02/03/17 20:20; Admin Dose 15 MG; Start 02/02/17 at 21:00 Tizanidine HCl (Zanaflex) 2 mg TID PO Last administered on 02/04/17 08:48; Admin Dose 2 MG; Start 02/03/17 at 21:00 WAQAR FAGAN MD Feb 04, 2017 11:57
--- NOTE | 2017-02-04 11:57 | PN ---
Date/Time of Note Date/Time of Note DATE: 02/04/17 TIME: 11:54 Assessment/Plan VTE Prophylaxis VTE Prophylaxis Intervention: ambulation, SCD's Lines/Catheters IV Catheter Type (from Nrs): Saline Lock Urinary Cath still in place: No Assessment/Plan Problems: (1) Persistent disorder of initiating or maintaining sleep Status: Chronic Comment: Pt.'s insomnia may be due to restless leg syndrome. Will add mirapex 0.125 mg nightly and see if helps maintain sleep better (2) Anxiety disorder Status: Chronic Comment: Cont. current treatment Qualifiers: Anxiety disorder type: generalized anxiety disorder Qualified Code: F41.1 - Generalized anxiety disorder (3) S/P lumbar spinal fusion Onset Date: ~ 01/27/2017 Status: Acute Comment: Switched muscle relaxant and seems to be doing well. Cont. rehab Subjective 24 Hr Interval Summary Constitutional: improved (markedly better yesterday and today), no complaints Respiratory: no complaints Cardiovascular: no complaints Gastrointestinal: no complaints Genitourinary: no complaints Musculoskeletal: no complaints Neurologic: other (terminal insomnia continues. Report sleeping and legs kick and wake him) Exam/Review of Systems Vital Signs Vitals VS - Last 72 Hours, by Label Date Time Temp Pulse Resp B/P Pulse Ox O2 Delivery O2 Flow Rate FiO2 02/04/17 07:30 98.8 78 18 127/78 99 02/04/17 02:00 98.2 78 18 122/67 97 02/03/17 20:00 98.5 88 18 119/63 94 02/03/17 14:00 98.4 72 18 127/77 99 02/03/17 08:03 98.7 83 19 128/81 100 02/03/17 02:00 98.5 75 18 127/70 97 02/02/17 20:00 98.3 74 18 124/64 96 02/02/17 07:00 98.7 60 18 121/73 96 02/02/17 02:22 98.3 68 18 127/59 98 02/01/17 20:00 98.2 80 18 128/77 98 Room Air Vital Signs Date Time Temp Pulse Resp B/P Pulse Ox O2 Delivery O2 Flow Rate FiO2 02/04/17 07:30 98.8 78 18 127/78 99 02/01/17 20:00 Room Air Intake and Output 02/03/17 02/03/17 02/04/17 15:00 23:00 07:00 Intake Total 1200 ml 1100 ml Output Total 1100 ml 350 ml Balance 100 ml 750 ml Exam Constitutional: alert, oriented, well developed Respiratory: clear to auscultation, normal air movement Cardiovascular: nl pulses, regular rate and rhythm, No edema, No murmurs/extra sounds, No rub Gastrointestinal: bowel sounds, nl liver, spleen, soft, tender (apropriately tender post-op), No mass, No non-tender, No rebound or guarding Musculoskeletal: nl extremities to inspection Extremities: normal pulses, No clubbing, No cyanosis, No edema 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, nl mental status, nl speech, nl strength Results Result Diagram: 02/01/1761802/01/17618 Medications Medications Current Medications Naloxone HCl (Narcan) 0.2 mg Q2M PRN IV DECREASED REPIRATORY RATE; Start 01/31 at 16:30 Ondansetron HCl (Zofran Inj) 4 mg Q6H PRN IV NAUSEA AND/OR VOMITING; Start at 16:30 Oxycodone HCl (Oxycontin) 20 mg BID PO Last administered on 02/04/17 08:48; Admin Dose 20 MG; Start 01/31/17 at 21:00 Prochlorperazine (Compazine) 10 mg Q4H PRN PO NAUSEA AND/OR VOMITING; Start at 17:00 Acetaminophen (Tylenol Tab) 650 mg Q4H PRN PO PAIN AND OR ELEVATED TEMP; Start 01/31/17 at 17:00 Alprazolam (Xanax) 0.5 mg Q12H PRN PO ANXIETY Last administered on 02/01/17 06 :13; Admin Dose 0.5 MG; Start 01/31/17 at 17:00 Duloxetine HCl (Cymbalta) 30 mg DAILY PO Last administered on 02/04/17 08:49; Admin Dose 30 MG; Start 02/01/17 at 09:00 Acetaminophen/ Hydrocodone Bitart ([place] (5/325)) 1 tab Q4H PRN PO PAIN LEVEL 1 -5; Start 01/31/17 at 17:00 Acetaminophen/ Hydrocodone Bitart ([place] (5/325)) 2 tab Q4H PRN PO PAIN LEVEL 6 -10 Last administered on 02/01/17 05:56; Admin Dose 2 TAB; Start 01/31/17 at 17:00 Docusate Sodium (Colace) 100 mg BID PO Last administered on 02/04/17 08:49; Admin Dose 100 MG; Start 01/31/17 at 21:00 Senna (Senokot) 1 tab QHS PO Last administered on 02/03/17 20:20; Admin Dose 1 TAB; Start 01/31/17 at 21:00 Bisacodyl (Dulcolax Supp) 10 mg DAILY PRN [place] CONSTIPATION Last administered on 02/03/17 20:00; Admin Dose 10 MG; Start 01/31/17 at 18:00 Magnesium Hydroxide (Milk Of Mag) 30 ml BID PRN PO CONSTIPATION; Start at 18:00 Lactulose (Enulose) 20 gm DAILY PRN PO CONSTIPATION Last administered on 08:59; Admin Dose 20 GM; Start 01/31/17 at 18:00 Acetaminophen/ Hydrocodone Bitart ([place] (7.5-325)) 2 tab Q4H PRN PO PAIN LEVEL 7-10 Last administered on 02/03/17 00:51; Admin Dose 2 TAB; Start at 12:30 Hydromorphone HCl (Dilaudid) 1 mg Q3 PRN IV PAIN Last administered on 10:52; Admin Dose 1 MG; Start 02/01/17 at 17:37 Alprazolam (Xanax) 0.5 mg Q8 PO Last administered on 02/04/17 05:11; Admin Dose 0.5 MG; Start 02/01/17 at 22:00 Gabapentin (Neurontin) 400 mg QHS PO Last administered on 02/03/17 20:20; Admin Dose 400 MG; Start 02/01/17 at 21:00 Nicotine (Nicoderm 14 Mg/ 24hr) 1 patch DAILY TRANSDERM ; Start 02/01/17 at 18: 30 Mirtazapine (Remeron) 15 mg HS PO Last administered on 02/03/17 20:20; Admin Dose 15 MG; Start 02/02/17 at 21:00 Tizanidine HCl (Zanaflex) 2 mg TID PO Last administered on 02/04/17 08:48; Admin Dose 2 MG; Start 02/03/17 at 21:00 WAQAR FAGAN MD Feb 04, 2017 11:57
--- NOTE | 2017-02-04 11:57 | PN ---
Date/Time of Note Date/Time of Note DATE: 02/04/17 TIME: 11:54 Assessment/Plan VTE Prophylaxis VTE Prophylaxis Intervention: ambulation, SCD's Lines/Catheters IV Catheter Type (from Nrs): Saline Lock Urinary Cath still in place: No Assessment/Plan Problems: (1) Persistent disorder of initiating or maintaining sleep Status: Chronic Comment: Pt.'s insomnia may be due to restless leg syndrome. Will add mirapex 0.125 mg nightly and see if helps maintain sleep better (2) Anxiety disorder Status: Chronic Comment: Cont. current treatment Qualifiers: Anxiety disorder type: generalized anxiety disorder Qualified Code: F41.1 - Generalized anxiety disorder (3) S/P lumbar spinal fusion Onset Date: ~ 01/27/2017 Status: Acute Comment: Switched muscle relaxant and seems to be doing well. Cont. rehab Subjective 24 Hr Interval Summary Constitutional: improved (markedly better yesterday and today), no complaints Respiratory: no complaints Cardiovascular: no complaints Gastrointestinal: no complaints Genitourinary: no complaints Musculoskeletal: no complaints Neurologic: other (terminal insomnia continues. Report sleeping and legs kick and wake him) Exam/Review of Systems Vital Signs Vitals VS - Last 72 Hours, by Label Date Time Temp Pulse Resp B/P Pulse Ox O2 Delivery O2 Flow Rate FiO2 02/04/17 07:30 98.8 78 18 127/78 99 02/04/17 02:00 98.2 78 18 122/67 97 02/03/17 20:00 98.5 88 18 119/63 94 02/03/17 14:00 98.4 72 18 127/77 99 02/03/17 08:03 98.7 83 19 128/81 100 02/03/17 02:00 98.5 75 18 127/70 97 02/02/17 20:00 98.3 74 18 124/64 96 02/02/17 07:00 98.7 60 18 121/73 96 02/02/17 02:22 98.3 68 18 127/59 98 02/01/17 20:00 98.2 80 18 128/77 98 Room Air Vital Signs Date Time Temp Pulse Resp B/P Pulse Ox O2 Delivery O2 Flow Rate FiO2 02/04/17 07:30 98.8 78 18 127/78 99 02/01/17 20:00 Room Air Intake and Output 02/03/17 02/03/17 02/04/17 15:00 23:00 07:00 Intake Total 1200 ml 1100 ml Output Total 1100 ml 350 ml Balance 100 ml 750 ml Exam Constitutional: alert, oriented, well developed Respiratory: clear to auscultation, normal air movement Cardiovascular: nl pulses, regular rate and rhythm, No edema, No murmurs/extra sounds, No rub Gastrointestinal: bowel sounds, nl liver, spleen, soft, tender (apropriately tender post-op), No mass, No non-tender, No rebound or guarding Musculoskeletal: nl extremities to inspection Extremities: normal pulses, No clubbing, No cyanosis, No edema 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, nl mental status, nl speech, nl strength Results Result Diagram: 02/01/1761802/01/17618 Medications Medications Current Medications Naloxone HCl (Narcan) 0.2 mg Q2M PRN IV DECREASED REPIRATORY RATE; Start 01/31 at 16:30 Ondansetron HCl (Zofran Inj) 4 mg Q6H PRN IV NAUSEA AND/OR VOMITING; Start at 16:30 Oxycodone HCl (Oxycontin) 20 mg BID PO Last administered on 02/04/17 08:48; Admin Dose 20 MG; Start 01/31/17 at 21:00 Prochlorperazine (Compazine) 10 mg Q4H PRN PO NAUSEA AND/OR VOMITING; Start at 17:00 Acetaminophen (Tylenol Tab) 650 mg Q4H PRN PO PAIN AND OR ELEVATED TEMP; Start 01/31/17 at 17:00 Alprazolam (Xanax) 0.5 mg Q12H PRN PO ANXIETY Last administered on 02/01/17 06 :13; Admin Dose 0.5 MG; Start 01/31/17 at 17:00 Duloxetine HCl (Cymbalta) 30 mg DAILY PO Last administered on 02/04/17 08:49; Admin Dose 30 MG; Start 02/01/17 at 09:00 Acetaminophen/ Hydrocodone Bitart ([place] (5/325)) 1 tab Q4H PRN PO PAIN LEVEL 1 -5; Start 01/31/17 at 17:00 Acetaminophen/ Hydrocodone Bitart ([place] (5/325)) 2 tab Q4H PRN PO PAIN LEVEL 6 -10 Last administered on 02/01/17 05:56; Admin Dose 2 TAB; Start 01/31/17 at 17:00 Docusate Sodium (Colace) 100 mg BID PO Last administered on 02/04/17 08:49; Admin Dose 100 MG; Start 01/31/17 at 21:00 Senna (Senokot) 1 tab QHS PO Last administered on 02/03/17 20:20; Admin Dose 1 TAB; Start 01/31/17 at 21:00 Bisacodyl (Dulcolax Supp) 10 mg DAILY PRN [place] CONSTIPATION Last administered on 02/03/17 20:00; Admin Dose 10 MG; Start 01/31/17 at 18:00 Magnesium Hydroxide (Milk Of Mag) 30 ml BID PRN PO CONSTIPATION; Start at 18:00 Lactulose (Enulose) 20 gm DAILY PRN PO CONSTIPATION Last administered on 08:59; Admin Dose 20 GM; Start 01/31/17 at 18:00 Acetaminophen/ Hydrocodone Bitart ([place] (7.5-325)) 2 tab Q4H PRN PO PAIN LEVEL 7-10 Last administered on 02/03/17 00:51; Admin Dose 2 TAB; Start at 12:30 Hydromorphone HCl (Dilaudid) 1 mg Q3 PRN IV PAIN Last administered on 10:52; Admin Dose 1 MG; Start 02/01/17 at 17:37 Alprazolam (Xanax) 0.5 mg Q8 PO Last administered on 02/04/17 05:11; Admin Dose 0.5 MG; Start 02/01/17 at 22:00 Gabapentin (Neurontin) 400 mg QHS PO Last administered on 02/03/17 20:20; Admin Dose 400 MG; Start 02/01/17 at 21:00 Nicotine (Nicoderm 14 Mg/ 24hr) 1 patch DAILY TRANSDERM ; Start 02/01/17 at 18: 30 Mirtazapine (Remeron) 15 mg HS PO Last administered on 02/03/17 20:20; Admin Dose 15 MG; Start 02/02/17 at 21:00 Tizanidine HCl (Zanaflex) 2 mg TID PO Last administered on 02/04/17 08:48; Admin Dose 2 MG; Start 02/03/17 at 21:00 WAQAR FAGAN MD Feb 04, 2017 11:57
[2017-02-04] MEDS: HYDROCODONE/APAP (7.5/325) TAB PO PRN ×2 (12:46→18:38)
[2017-02-04 14:00] VITALS: BP 128/76; RESP 20
[2017-02-04 20:41] VITALS: BP 128/80; RESP 18
[2017-02-04] MEDS: GABAPENTIN 400 MG CAP PO SCH (21:02)
[2017-02-04] MEDS: PRAMIPEXOLE 0.125 MG TAB PO SCH (21:02)
[2017-02-04] MEDS: MIRTAZAPINE 15 MG TAB PO SCH (21:03)
[2017-02-04] MEDS: SENNA TAB PO SCH (21:03)
[2017-02-05 01:47] VITALS: BP 128/79; RESP 18
[2017-02-05] MEDS: HYDROmorphONE 1 MG/ML SYG IV PRN ×7 (01:48→20:46)
[2017-02-05] MEDS: ALPRAZOLAM 0.5 MG TAB PO SCH ×3 (04:52→21:50)
[2017-02-05 07:00] VITALS: BP 130/91; RESP 18
[2017-02-05] MEDS: TIZANIDINE 2 MG TAB PO SCH ×3 (08:32→20:44)
[2017-02-05] MEDS: DOCUSATE SODIUM 100 MG CAP PO SCH ×2 (08:32→20:44)
[2017-02-05] MEDS: oxyCODONE (CR) 10 MG TAB [oxyCONTIN] PO SCH ×2 (08:32→21:50)
[2017-02-05] MEDS: DULOXETINE 30 MG CAP DR PO SCH (08:32)
[2017-02-05] MEDS: NICOTINE (14 MG/24 HR) PATCH TRANSDERM SCH (09:00)
--- NOTE | 2017-02-05 12:25 | PN ---
Date/Time of Note Date/Time of Note DATE: 02/05/17 TIME: 12:22 Assessment/Plan VTE Prophylaxis VTE Prophylaxis Intervention: ambulation, SCD's Lines/Catheters IV Catheter Type (from Nrsg): Saline Lock Urinary Cath still in place: No Assessment/Plan Problems: (1) Restless leg syndrome Status: Chronic Comment: Mirapex 0.125 mg may have been effective. Will continue. 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 (3) S/P lumbar spinal fusion Onset Date: ~ 01/27/2017 Status: Acute Comment: Try increasing gabapentin 400 mg to bid. Cont. rehab Subjective 24 Hr Interval Summary Constitutional: improved, no complaints Respiratory: no complaints Cardiovascular: no complaints Gastrointestinal: No pain (improved since yesterday) Genitourinary: no complaints Musculoskeletal: bone/joint pain (nerve pain running down legs, radiates from hips to medial knees B) Neurologic: no complaints (O/N leg kicking improved w/ mirapex and subsequently insomnia improved as well) Exam/Review of Systems Vital Signs Vitals VS - Last 72 Hours, by Label Date Time Temp Pulse Resp B/P Pulse Ox O2 Delivery O2 Flow Rate FiO2 02/05/17 07:00 98.6 90 18 130/91 100 02/05/17 01:47 98.5 85 18 128/79 98 02/04/17 20:41 98.5 87 18 128/80 96 02/04/17 14:00 98.5 76 20 128/76 98 02/04/17 07:30 98.8 78 18 127/78 99 02/04/17 02:00 98.2 78 18 122/67 97 02/03/17 20:00 98.5 88 18 119/63 94 02/03/17 14:00 98.4 72 18 127/77 99 02/03/17 08:03 98.7 83 19 128/81 100 02/03/17 02:00 98.5 75 18 127/70 97 02/02/17 20:00 98.3 74 18 124/64 96 Vital Signs Date Time Temp Pulse Resp B/P Pulse Ox O2 Delivery O2 Flow Rate FiO2 02/05/17 07:00 98.6 90 18 130/91 100 02/01/17 20:00 Room Air Intake and Output 02/04/17 02/04/17 02/05/17 15:00 23:00 07:00 Intake Total 960 ml 400 ml Balance 960 ml 400 ml Exam Constitutional: alert, oriented, well developed Psych: nl mood/affect, no complaints Respiratory: clear to auscultation, normal air movement Cardiovascular: nl pulses, regular rate and rhythm, No edema, No murmurs/extra sounds, No rub Gastrointestinal: bowel sounds, nl liver, spleen, soft, tender (minimal LLQ), No mass, No non-tender, No rebound or guarding Musculoskeletal: nl extremities to inspection Extremities: normal pulses, No clubbing, No cyanosis, No edema 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, nl mental status, nl speech, nl strength Results Result Diagram: 02/01/1761802/01/17618 Medications Medications Current Medications Naloxone HCl (Narcan) 0.2 mg Q2M PRN IV DECREASED REPIRATORY RATE; Start 01/31 at 16:30 Ondansetron HCl (Zofran Inj) 4 mg Q6H PRN IV NAUSEA AND/OR VOMITING; Start at 16:30 Oxycodone HCl (Oxycontin) 20 mg BID PO Last administered on 02/05/17 08:32; Admin Dose 20 MG; Start 01/31/17 at 21:00 Prochlorperazine (Compazine) 10 mg Q4H PRN PO NAUSEA AND/OR VOMITING; Start at 17:00 Acetaminophen (Tylenol Tab) 650 mg Q4H PRN PO PAIN AND OR ELEVATED TEMP; Start 01/31/17 at 17:00 Alprazolam (Xanax) 0.5 mg Q12H PRN PO ANXIETY Last administered on 02/01/17 06 :13; Admin Dose 0.5 MG; Start 01/31/17 at 17:00 Duloxetine HCl (Cymbalta) 30 mg DAILY PO Last administered on 02/05/17 08:32; Admin Dose 30 MG; Start 02/01/17 at 09:00 Acetaminophen/ Hydrocodone Bitart ([place] (5/325)) 1 tab Q4H PRN PO PAIN LEVEL 1 -5; Start 01/31/17 at 17:00 Acetaminophen/ Hydrocodone Bitart ([place] (5/325)) 2 tab Q4H PRN PO PAIN LEVEL 6 -10 Last administered on 02/01/17 05:56; Admin Dose 2 TAB; Start 01/31/17 at 17:00 Docusate Sodium (Colace) 100 mg BID PO Last administered on 02/05/17 08:32; Admin Dose 100 MG; Start 01/31/17 at 21:00 Senna (Senokot) 1 tab QHS PO Last administered on 02/04/17 21:03; Admin Dose 1 TAB; Start 01/31/17 at 21:00 Bisacodyl (Dulcolax Supp) 10 mg DAILY PRN [place] CONSTIPATION Last administered on 02/03/17 20:00; Admin Dose 10 MG; Start 01/31/17 at 18:00 Magnesium Hydroxide (Milk Of Mag) 30 ml BID PRN PO CONSTIPATION; Start at 18:00 Lactulose (Enulose) 20 gm DAILY PRN PO CONSTIPATION Last administered on 08:59; Admin Dose 20 GM; Start 01/31/17 at 18:00 Acetaminophen/ Hydrocodone Bitart ([place] (7.5-325)) 2 tab Q4H PRN PO PAIN LEVEL 7-10 Last administered on 02/04/17 18:38; Admin Dose 2 TAB; Start at 12:30 Hydromorphone HCl (Dilaudid) 1 mg Q3 PRN IV PAIN Last administered on 11:36; Admin Dose 1 MG; Start 02/01/17 at 17:37 Alprazolam (Xanax) 0.5 mg Q8 PO Last administered on 02/05/17 04:52; Admin Dose 0.5 MG; Start 02/01/17 at 22:00 Gabapentin (Neurontin) 400 mg QHS PO Last administered on 02/04/17 21:02; Admin Dose 400 MG; Start 02/01/17 at 21:00 Nicotine (Nicoderm 14 Mg/ 24hr) 1 patch DAILY TRANSDERM ; Start 02/01/17 at 18: 30 Mirtazapine (Remeron) 15 mg HS PO Last administered on 02/04/17 21:03; Admin Dose 15 MG; Start 02/02/17 at 21:00 Tizanidine HCl (Zanaflex) 2 mg TID PO Last administered on 02/05/17 08:32; Admin Dose 2 MG; Start 02/03/17 at 21:00 Pramipexole (Mirapex) 0.125 mg HS PO Last administered on 02/04/17 21:02; Admin Dose 0.125 MG; Start 02/04/17 at 21:00 WAQAR FAGAN MD Feb 05, 2017 12:25
--- NOTE | 2017-02-05 12:25 | PN ---
Date/Time of Note Date/Time of Note DATE: 02/05/17 TIME: 12:22 Assessment/Plan VTE Prophylaxis VTE Prophylaxis Intervention: ambulation, SCD's Lines/Catheters IV Catheter Type (from Nrsg): Saline Lock Urinary Cath still in place: No Assessment/Plan Problems: (1) Restless leg syndrome Status: Chronic Comment: Mirapex 0.125 mg may have been effective. Will continue. 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 (3) S/P lumbar spinal fusion Onset Date: ~ 01/27/2017 Status: Acute Comment: Try increasing gabapentin 400 mg to bid. Cont. rehab Subjective 24 Hr Interval Summary Constitutional: improved, no complaints Respiratory: no complaints Cardiovascular: no complaints Gastrointestinal: No pain (improved since yesterday) Genitourinary: no complaints Musculoskeletal: bone/joint pain (nerve pain running down legs, radiates from hips to medial knees B) Neurologic: no complaints (O/N leg kicking improved w/ mirapex and subsequently insomnia improved as well) Exam/Review of Systems Vital Signs Vitals VS - Last 72 Hours, by Label Date Time Temp Pulse Resp B/P Pulse Ox O2 Delivery O2 Flow Rate FiO2 02/05/17 07:00 98.6 90 18 130/91 100 02/05/17 01:47 98.5 85 18 128/79 98 02/04/17 20:41 98.5 87 18 128/80 96 02/04/17 14:00 98.5 76 20 128/76 98 02/04/17 07:30 98.8 78 18 127/78 99 02/04/17 02:00 98.2 78 18 122/67 97 02/03/17 20:00 98.5 88 18 119/63 94 02/03/17 14:00 98.4 72 18 127/77 99 02/03/17 08:03 98.7 83 19 128/81 100 02/03/17 02:00 98.5 75 18 127/70 97 02/02/17 20:00 98.3 74 18 124/64 96 Vital Signs Date Time Temp Pulse Resp B/P Pulse Ox O2 Delivery O2 Flow Rate FiO2 02/05/17 07:00 98.6 90 18 130/91 100 02/01/17 20:00 Room Air Intake and Output 02/04/17 02/04/17 02/05/17 15:00 23:00 07:00 Intake Total 960 ml 400 ml Balance 960 ml 400 ml Exam Constitutional: alert, oriented, well developed Psych: nl mood/affect, no complaints Respiratory: clear to auscultation, normal air movement Cardiovascular: nl pulses, regular rate and rhythm, No edema, No murmurs/extra sounds, No rub Gastrointestinal: bowel sounds, nl liver, spleen, soft, tender (minimal LLQ), No mass, No non-tender, No rebound or guarding Musculoskeletal: nl extremities to inspection Extremities: normal pulses, No clubbing, No cyanosis, No edema 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, nl mental status, nl speech, nl strength Results Result Diagram: 02/01/1761802/01/17618 Medications Medications Current Medications Naloxone HCl (Narcan) 0.2 mg Q2M PRN IV DECREASED REPIRATORY RATE; Start 01/31 at 16:30 Ondansetron HCl (Zofran Inj) 4 mg Q6H PRN IV NAUSEA AND/OR VOMITING; Start at 16:30 Oxycodone HCl (Oxycontin) 20 mg BID PO Last administered on 02/05/17 08:32; Admin Dose 20 MG; Start 01/31/17 at 21:00 Prochlorperazine (Compazine) 10 mg Q4H PRN PO NAUSEA AND/OR VOMITING; Start at 17:00 Acetaminophen (Tylenol Tab) 650 mg Q4H PRN PO PAIN AND OR ELEVATED TEMP; Start 01/31/17 at 17:00 Alprazolam (Xanax) 0.5 mg Q12H PRN PO ANXIETY Last administered on 02/01/17 06 :13; Admin Dose 0.5 MG; Start 01/31/17 at 17:00 Duloxetine HCl (Cymbalta) 30 mg DAILY PO Last administered on 02/05/17 08:32; Admin Dose 30 MG; Start 02/01/17 at 09:00 Acetaminophen/ Hydrocodone Bitart ([place] (5/325)) 1 tab Q4H PRN PO PAIN LEVEL 1 -5; Start 01/31/17 at 17:00 Acetaminophen/ Hydrocodone Bitart ([place] (5/325)) 2 tab Q4H PRN PO PAIN LEVEL 6 -10 Last administered on 02/01/17 05:56; Admin Dose 2 TAB; Start 01/31/17 at 17:00 Docusate Sodium (Colace) 100 mg BID PO Last administered on 02/05/17 08:32; Admin Dose 100 MG; Start 01/31/17 at 21:00 Senna (Senokot) 1 tab QHS PO Last administered on 02/04/17 21:03; Admin Dose 1 TAB; Start 01/31/17 at 21:00 Bisacodyl (Dulcolax Supp) 10 mg DAILY PRN [place] CONSTIPATION Last administered on 02/03/17 20:00; Admin Dose 10 MG; Start 01/31/17 at 18:00 Magnesium Hydroxide (Milk Of Mag) 30 ml BID PRN PO CONSTIPATION; Start at 18:00 Lactulose (Enulose) 20 gm DAILY PRN PO CONSTIPATION Last administered on 08:59; Admin Dose 20 GM; Start 01/31/17 at 18:00 Acetaminophen/ Hydrocodone Bitart ([place] (7.5-325)) 2 tab Q4H PRN PO PAIN LEVEL 7-10 Last administered on 02/04/17 18:38; Admin Dose 2 TAB; Start at 12:30 Hydromorphone HCl (Dilaudid) 1 mg Q3 PRN IV PAIN Last administered on 11:36; Admin Dose 1 MG; Start 02/01/17 at 17:37 Alprazolam (Xanax) 0.5 mg Q8 PO Last administered on 02/05/17 04:52; Admin Dose 0.5 MG; Start 02/01/17 at 22:00 Gabapentin (Neurontin) 400 mg QHS PO Last administered on 02/04/17 21:02; Admin Dose 400 MG; Start 02/01/17 at 21:00 Nicotine (Nicoderm 14 Mg/ 24hr) 1 patch DAILY TRANSDERM ; Start 02/01/17 at 18: 30 Mirtazapine (Remeron) 15 mg HS PO Last administered on 02/04/17 21:03; Admin Dose 15 MG; Start 02/02/17 at 21:00 Tizanidine HCl (Zanaflex) 2 mg TID PO Last administered on 02/05/17 08:32; Admin Dose 2 MG; Start 02/03/17 at 21:00 Pramipexole (Mirapex) 0.125 mg HS PO Last administered on 02/04/17 21:02; Admin Dose 0.125 MG; Start 02/04/17 at 21:00 WAQAR FAGAN MD Feb 05, 2017 12:25
--- NOTE | 2017-02-05 12:25 | PN ---
Date/Time of Note Date/Time of Note DATE: 02/05/17 TIME: 12:22 Assessment/Plan VTE Prophylaxis VTE Prophylaxis Intervention: ambulation, SCD's Lines/Catheters IV Catheter Type (from Nrsg): Saline Lock Urinary Cath still in place: No Assessment/Plan Problems: (1) Restless leg syndrome Status: Chronic Comment: Mirapex 0.125 mg may have been effective. Will continue. 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 (3) S/P lumbar spinal fusion Onset Date: ~ 01/27/2017 Status: Acute Comment: Try increasing gabapentin 400 mg to bid. Cont. rehab Subjective 24 Hr Interval Summary Constitutional: improved, no complaints Respiratory: no complaints Cardiovascular: no complaints Gastrointestinal: No pain (improved since yesterday) Genitourinary: no complaints Musculoskeletal: bone/joint pain (nerve pain running down legs, radiates from hips to medial knees B) Neurologic: no complaints (O/N leg kicking improved w/ mirapex and subsequently insomnia improved as well) Exam/Review of Systems Vital Signs Vitals VS - Last 72 Hours, by Label Date Time Temp Pulse Resp B/P Pulse Ox O2 Delivery O2 Flow Rate FiO2 02/05/17 07:00 98.6 90 18 130/91 100 02/05/17 01:47 98.5 85 18 128/79 98 02/04/17 20:41 98.5 87 18 128/80 96 02/04/17 14:00 98.5 76 20 128/76 98 02/04/17 07:30 98.8 78 18 127/78 99 02/04/17 02:00 98.2 78 18 122/67 97 02/03/17 20:00 98.5 88 18 119/63 94 02/03/17 14:00 98.4 72 18 127/77 99 02/03/17 08:03 98.7 83 19 128/81 100 02/03/17 02:00 98.5 75 18 127/70 97 02/02/17 20:00 98.3 74 18 124/64 96 Vital Signs Date Time Temp Pulse Resp B/P Pulse Ox O2 Delivery O2 Flow Rate FiO2 02/05/17 07:00 98.6 90 18 130/91 100 02/01/17 20:00 Room Air Intake and Output 02/04/17 02/04/17 02/05/17 15:00 23:00 07:00 Intake Total 960 ml 400 ml Balance 960 ml 400 ml Exam Constitutional: alert, oriented, well developed Psych: nl mood/affect, no complaints Respiratory: clear to auscultation, normal air movement Cardiovascular: nl pulses, regular rate and rhythm, No edema, No murmurs/extra sounds, No rub Gastrointestinal: bowel sounds, nl liver, spleen, soft, tender (minimal LLQ), No mass, No non-tender, No rebound or guarding Musculoskeletal: nl extremities to inspection Extremities: normal pulses, No clubbing, No cyanosis, No edema 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, nl mental status, nl speech, nl strength Results Result Diagram: 02/01/1761802/01/17618 Medications Medications Current Medications Naloxone HCl (Narcan) 0.2 mg Q2M PRN IV DECREASED REPIRATORY RATE; Start 01/31 at 16:30 Ondansetron HCl (Zofran Inj) 4 mg Q6H PRN IV NAUSEA AND/OR VOMITING; Start at 16:30 Oxycodone HCl (Oxycontin) 20 mg BID PO Last administered on 02/05/17 08:32; Admin Dose 20 MG; Start 01/31/17 at 21:00 Prochlorperazine (Compazine) 10 mg Q4H PRN PO NAUSEA AND/OR VOMITING; Start at 17:00 Acetaminophen (Tylenol Tab) 650 mg Q4H PRN PO PAIN AND OR ELEVATED TEMP; Start 01/31/17 at 17:00 Alprazolam (Xanax) 0.5 mg Q12H PRN PO ANXIETY Last administered on 02/01/17 06 :13; Admin Dose 0.5 MG; Start 01/31/17 at 17:00 Duloxetine HCl (Cymbalta) 30 mg DAILY PO Last administered on 02/05/17 08:32; Admin Dose 30 MG; Start 02/01/17 at 09:00 Acetaminophen/ Hydrocodone Bitart ([place] (5/325)) 1 tab Q4H PRN PO PAIN LEVEL 1 -5; Start 01/31/17 at 17:00 Acetaminophen/ Hydrocodone Bitart ([place] (5/325)) 2 tab Q4H PRN PO PAIN LEVEL 6 -10 Last administered on 02/01/17 05:56; Admin Dose 2 TAB; Start 01/31/17 at 17:00 Docusate Sodium (Colace) 100 mg BID PO Last administered on 02/05/17 08:32; Admin Dose 100 MG; Start 01/31/17 at 21:00 Senna (Senokot) 1 tab QHS PO Last administered on 02/04/17 21:03; Admin Dose 1 TAB; Start 01/31/17 at 21:00 Bisacodyl (Dulcolax Supp) 10 mg DAILY PRN [place] CONSTIPATION Last administered on 02/03/17 20:00; Admin Dose 10 MG; Start 01/31/17 at 18:00 Magnesium Hydroxide (Milk Of Mag) 30 ml BID PRN PO CONSTIPATION; Start at 18:00 Lactulose (Enulose) 20 gm DAILY PRN PO CONSTIPATION Last administered on 08:59; Admin Dose 20 GM; Start 01/31/17 at 18:00 Acetaminophen/ Hydrocodone Bitart ([place] (7.5-325)) 2 tab Q4H PRN PO PAIN LEVEL 7-10 Last administered on 02/04/17 18:38; Admin Dose 2 TAB; Start at 12:30 Hydromorphone HCl (Dilaudid) 1 mg Q3 PRN IV PAIN Last administered on 11:36; Admin Dose 1 MG; Start 02/01/17 at 17:37 Alprazolam (Xanax) 0.5 mg Q8 PO Last administered on 02/05/17 04:52; Admin Dose 0.5 MG; Start 02/01/17 at 22:00 Gabapentin (Neurontin) 400 mg QHS PO Last administered on 02/04/17 21:02; Admin Dose 400 MG; Start 02/01/17 at 21:00 Nicotine (Nicoderm 14 Mg/ 24hr) 1 patch DAILY TRANSDERM ; Start 02/01/17 at 18: 30 Mirtazapine (Remeron) 15 mg HS PO Last administered on 02/04/17 21:03; Admin Dose 15 MG; Start 02/02/17 at 21:00 Tizanidine HCl (Zanaflex) 2 mg TID PO Last administered on 02/05/17 08:32; Admin Dose 2 MG; Start 02/03/17 at 21:00 Pramipexole (Mirapex) 0.125 mg HS PO Last administered on 02/04/17 21:02; Admin Dose 0.125 MG; Start 02/04/17 at 21:00 WAQAR FAGAN MD Feb 05, 2017 12:25
[2017-02-05] MEDS: PRAMIPEXOLE 0.125 MG TAB PO SCH (20:44)
[2017-02-05] MEDS: MIRTAZAPINE 15 MG TAB PO SCH (20:44)
[2017-02-05] MEDS: SENNA TAB PO SCH (20:44)
[2017-02-05 21:00] VITALS: BP 141/80; RESP 20
[2017-02-05] MEDS: GABAPENTIN 400 MG CAP PO SCH (21:49)
[2017-02-06 02:00] VITALS: BP 134/76; RESP 18
[2017-02-06] MEDS: HYDROmorphONE 1 MG/ML SYG IV PRN ×5 (03:56→22:31)
[2017-02-06] MEDS: LACTULOSE 30ML CUP PO PRN (06:12)
[2017-02-06] MEDS: ALPRAZOLAM 0.5 MG TAB PO SCH ×3 (06:16→22:00)
[2017-02-06 07:00] VITALS: BP 122/81; RESP 18
[2017-02-06] MEDS: TIZANIDINE 2 MG TAB PO SCH ×2 (08:44→14:29)
[2017-02-06] MEDS: oxyCODONE (CR) 10 MG TAB [oxyCONTIN] PO SCH (08:44)
[2017-02-06] MEDS: DULOXETINE 30 MG CAP DR PO SCH (08:50)
[2017-02-06] MEDS: GABAPENTIN 400 MG CAP PO SCH (08:51)
[2017-02-06] MEDS: DOCUSATE SODIUM 100 MG CAP PO SCH (08:51)
[2017-02-06] MEDS: NICOTINE (14 MG/24 HR) PATCH TRANSDERM SCH (09:00)
--- NOTE | 2017-02-06 09:15 | CONS ---
Date/Time of Note Date/Time of Note DATE: 02/06/17 TIME: 09:14 Consult Date/Type/Reason Admit Date/Time Jan 31, 2017 at 15:38 Objective Vital Signs Date Time Temp Pulse Resp B/P Pulse Ox O2 Delivery O2 Flow Rate FiO2 02/06/17 07:00 99.4 99 18 122/81 99 Intake and Output 02/05/17 02/05/17 02/06/17 14:59 22:59 06:59 Intake Total 1200 ml 390 ml Output Total 800 ml 800 ml Balance 400 ml -410 ml INTERDISCIPLINARY TEAM CONFERENCE BOWEL- Cont BLADDER-Cont SKIN- intact OT- DRESSING-s BATHING-s TOILETING-s PT- BED MOBILITY-FL TRANSFERS-FL AMBULATION-FL 200 feet A/P- Interdisciplinary team conference held today. Please see interdisciplinary sheet. Working toward d.c. on 02/07 with post discharge follow up of physical therapy, occupational therapy. Results/Medications Medications Current Medications Naloxone HCl (Narcan) 0.2 mg Q2M PRN IV DECREASED REPIRATORY RATE; Start 01/31 at 16:30 Ondansetron HCl (Zofran Inj) 4 mg Q6H PRN IV NAUSEA AND/OR VOMITING; Start at 16:30 Oxycodone HCl (Oxycontin) 20 mg BID PO Last administered on 02/06/17 08:44; Admin Dose 20 MG; Start 01/31/17 at 21:00 Prochlorperazine (Compazine) 10 mg Q4H PRN PO NAUSEA AND/OR VOMITING; Start at 17:00 Acetaminophen (Tylenol Tab) 650 mg Q4H PRN PO PAIN AND OR ELEVATED TEMP; Start 01/31/17 at 17:00 Alprazolam (Xanax) 0.5 mg Q12H PRN PO ANXIETY Last administered on 02/01/17 06 :13; Admin Dose 0.5 MG; Start 01/31/17 at 17:00 Duloxetine HCl (Cymbalta) 30 mg DAILY PO Last administered on 02/06/17 08:50; Admin Dose 30 MG; Start 02/01/17 at 09:00 Acetaminophen/ Hydrocodone Bitart ([place] (5/325)) 1 tab Q4H PRN PO PAIN LEVEL 1 -5; Start 01/31/17 at 17:00 Acetaminophen/ Hydrocodone Bitart ([place] (5/325)) 2 tab Q4H PRN PO PAIN LEVEL 6 -10 Last administered on 02/01/17 05:56; Admin Dose 2 TAB; Start 01/31/17 at 17:00 Docusate Sodium (Colace) 100 mg BID PO Last administered on 02/06/17 08:51; Admin Dose 100 MG; Start 01/31/17 at 21:00 Senna (Senokot) 1 tab QHS PO Last administered on 02/05/17 20:44; Admin Dose 1 TAB; Start 01/31/17 at 21:00 Bisacodyl (Dulcolax Supp) 10 mg DAILY PRN [place] CONSTIPATION Last administered on 02/03/17 20:00; Admin Dose 10 MG; Start 01/31/17 at 18:00 Magnesium Hydroxide (Milk Of Mag) 30 ml BID PRN PO CONSTIPATION; Start at 18:00 Lactulose (Enulose) 20 gm DAILY PRN PO CONSTIPATION Last administered on 06:12; Admin Dose 20 GM; Start 01/31/17 at 18:00 Acetaminophen/ Hydrocodone Bitart ([place] (7.5-325)) 2 tab Q4H PRN PO PAIN LEVEL 7-10 Last administered on 02/04/17 18:38; Admin Dose 2 TAB; Start at 12:30 Hydromorphone HCl (Dilaudid) 1 mg Q3 PRN IV PAIN Last administered on 08:45; Admin Dose 1 MG; Start 02/01/17 at 17:37 Alprazolam (Xanax) 0.5 mg Q8 PO Last administered on 02/06/17 06:16; Admin Dose 0.5 MG; Start 02/01/17 at 22:00 Nicotine (Nicoderm 14 Mg/ 24hr) 1 patch DAILY TRANSDERM ; Start 02/01/17 at 18: 30 Mirtazapine (Remeron) 15 mg HS PO Last administered on 02/05/17 20:44; Admin Dose 15 MG; Start 02/02/17 at 21:00 Tizanidine HCl (Zanaflex) 2 mg TID PO Last administered on 02/06/17 08:44; Admin Dose 2 MG; Start 02/03/17 at 21:00 Pramipexole (Mirapex) 0.125 mg HS PO Last administered on 02/05/17 20:44; Admin Dose 0.125 MG; Start 02/04/17 at 21:00 Gabapentin (Neurontin) 400 mg BID PO Last administered on 02/06/17 08:51; Admin Dose 400 MG; Start 02/05/17 at 21:00 AMBER CLIFFORD MD Feb 06, 2017 09:15
--- NOTE | 2017-02-06 09:15 | CONS ---
Date/Time of Note Date/Time of Note DATE: 02/06/17 TIME: 09:14 Consult Date/Type/Reason Admit Date/Time Jan 31, 2017 at 15:38 Objective Vital Signs Date Time Temp Pulse Resp B/P Pulse Ox O2 Delivery O2 Flow Rate FiO2 02/06/17 07:00 99.4 99 18 122/81 99 Intake and Output 02/05/17 02/05/17 02/06/17 14:59 22:59 06:59 Intake Total 1200 ml 390 ml Output Total 800 ml 800 ml Balance 400 ml -410 ml INTERDISCIPLINARY TEAM CONFERENCE BOWEL- Cont BLADDER-Cont SKIN- intact OT- DRESSING-s BATHING-s TOILETING-s PT- BED MOBILITY-TX TRANSFERS-TX AMBULATION-TX 200 feet A/P- Interdisciplinary team conference held today. Please see interdisciplinary sheet. Working toward d.c. on 02/07 with post discharge follow up of physical therapy, occupational therapy. Results/Medications Medications Current Medications Naloxone HCl (Narcan) 0.2 mg Q2M PRN IV DECREASED REPIRATORY RATE; Start 01/31 at 16:30 Ondansetron HCl (Zofran Inj) 4 mg Q6H PRN IV NAUSEA AND/OR VOMITING; Start at 16:30 Oxycodone HCl (Oxycontin) 20 mg BID PO Last administered on 02/06/17 08:44; Admin Dose 20 MG; Start 01/31/17 at 21:00 Prochlorperazine (Compazine) 10 mg Q4H PRN PO NAUSEA AND/OR VOMITING; Start at 17:00 Acetaminophen (Tylenol Tab) 650 mg Q4H PRN PO PAIN AND OR ELEVATED TEMP; Start 01/31/17 at 17:00 Alprazolam (Xanax) 0.5 mg Q12H PRN PO ANXIETY Last administered on 02/01/17 06 :13; Admin Dose 0.5 MG; Start 01/31/17 at 17:00 Duloxetine HCl (Cymbalta) 30 mg DAILY PO Last administered on 02/06/17 08:50; Admin Dose 30 MG; Start 02/01/17 at 09:00 Acetaminophen/ Hydrocodone Bitart ([place] (5/325)) 1 tab Q4H PRN PO PAIN LEVEL 1 -5; Start 01/31/17 at 17:00 Acetaminophen/ Hydrocodone Bitart ([place] (5/325)) 2 tab Q4H PRN PO PAIN LEVEL 6 -10 Last administered on 02/01/17 05:56; Admin Dose 2 TAB; Start 01/31/17 at 17:00 Docusate Sodium (Colace) 100 mg BID PO Last administered on 02/06/17 08:51; Admin Dose 100 MG; Start 01/31/17 at 21:00 Senna (Senokot) 1 tab QHS PO Last administered on 02/05/17 20:44; Admin Dose 1 TAB; Start 01/31/17 at 21:00 Bisacodyl (Dulcolax Supp) 10 mg DAILY PRN [place] CONSTIPATION Last administered on 02/03/17 20:00; Admin Dose 10 MG; Start 01/31/17 at 18:00 Magnesium Hydroxide (Milk Of Mag) 30 ml BID PRN PO CONSTIPATION; Start at 18:00 Lactulose (Enulose) 20 gm DAILY PRN PO CONSTIPATION Last administered on 06:12; Admin Dose 20 GM; Start 01/31/17 at 18:00 Acetaminophen/ Hydrocodone Bitart ([place] (7.5-325)) 2 tab Q4H PRN PO PAIN LEVEL 7-10 Last administered on 02/04/17 18:38; Admin Dose 2 TAB; Start at 12:30 Hydromorphone HCl (Dilaudid) 1 mg Q3 PRN IV PAIN Last administered on 08:45; Admin Dose 1 MG; Start 02/01/17 at 17:37 Alprazolam (Xanax) 0.5 mg Q8 PO Last administered on 02/06/17 06:16; Admin Dose 0.5 MG; Start 02/01/17 at 22:00 Nicotine (Nicoderm 14 Mg/ 24hr) 1 patch DAILY TRANSDERM ; Start 02/01/17 at 18: 30 Mirtazapine (Remeron) 15 mg HS PO Last administered on 02/05/17 20:44; Admin Dose 15 MG; Start 02/02/17 at 21:00 Tizanidine HCl (Zanaflex) 2 mg TID PO Last administered on 02/06/17 08:44; Admin Dose 2 MG; Start 02/03/17 at 21:00 Pramipexole (Mirapex) 0.125 mg HS PO Last administered on 02/05/17 20:44; Admin Dose 0.125 MG; Start 02/04/17 at 21:00 Gabapentin (Neurontin) 400 mg BID PO Last administered on 02/06/17 08:51; Admin Dose 400 MG; Start 02/05/17 at 21:00 AMBER CLIFFORD MD Feb 06, 2017 09:15
--- NOTE | 2017-02-06 09:15 | CONS ---
Date/Time of Note Date/Time of Note DATE: 02/06/17 TIME: 09:14 Consult Date/Type/Reason Admit Date/Time Jan 31, 2017 at 15:38 Objective Vital Signs Date Time Temp Pulse Resp B/P Pulse Ox O2 Delivery O2 Flow Rate FiO2 02/06/17 07:00 99.4 99 18 122/81 99 Intake and Output 02/05/17 02/05/17 02/06/17 14:59 22:59 06:59 Intake Total 1200 ml 390 ml Output Total 800 ml 800 ml Balance 400 ml -410 ml INTERDISCIPLINARY TEAM CONFERENCE BOWEL- Cont BLADDER-Cont SKIN- intact OT- DRESSING-s BATHING-s TOILETING-s PT- BED MOBILITY-CT TRANSFERS-CT AMBULATION-CT 200 feet A/P- Interdisciplinary team conference held today. Please see interdisciplinary sheet. Working toward d.c. on 02/07 with post discharge follow up of physical therapy, occupational therapy. Results/Medications Medications Current Medications Naloxone HCl (Narcan) 0.2 mg Q2M PRN IV DECREASED REPIRATORY RATE; Start 01/31 at 16:30 Ondansetron HCl (Zofran Inj) 4 mg Q6H PRN IV NAUSEA AND/OR VOMITING; Start at 16:30 Oxycodone HCl (Oxycontin) 20 mg BID PO Last administered on 02/06/17 08:44; Admin Dose 20 MG; Start 01/31/17 at 21:00 Prochlorperazine (Compazine) 10 mg Q4H PRN PO NAUSEA AND/OR VOMITING; Start at 17:00 Acetaminophen (Tylenol Tab) 650 mg Q4H PRN PO PAIN AND OR ELEVATED TEMP; Start 01/31/17 at 17:00 Alprazolam (Xanax) 0.5 mg Q12H PRN PO ANXIETY Last administered on 02/01/17 06 :13; Admin Dose 0.5 MG; Start 01/31/17 at 17:00 Duloxetine HCl (Cymbalta) 30 mg DAILY PO Last administered on 02/06/17 08:50; Admin Dose 30 MG; Start 02/01/17 at 09:00 Acetaminophen/ Hydrocodone Bitart ([place] (5/325)) 1 tab Q4H PRN PO PAIN LEVEL 1 -5; Start 01/31/17 at 17:00 Acetaminophen/ Hydrocodone Bitart ([place] (5/325)) 2 tab Q4H PRN PO PAIN LEVEL 6 -10 Last administered on 02/01/17 05:56; Admin Dose 2 TAB; Start 01/31/17 at 17:00 Docusate Sodium (Colace) 100 mg BID PO Last administered on 02/06/17 08:51; Admin Dose 100 MG; Start 01/31/17 at 21:00 Senna (Senokot) 1 tab QHS PO Last administered on 02/05/17 20:44; Admin Dose 1 TAB; Start 01/31/17 at 21:00 Bisacodyl (Dulcolax Supp) 10 mg DAILY PRN [place] CONSTIPATION Last administered on 02/03/17 20:00; Admin Dose 10 MG; Start 01/31/17 at 18:00 Magnesium Hydroxide (Milk Of Mag) 30 ml BID PRN PO CONSTIPATION; Start at 18:00 Lactulose (Enulose) 20 gm DAILY PRN PO CONSTIPATION Last administered on 06:12; Admin Dose 20 GM; Start 01/31/17 at 18:00 Acetaminophen/ Hydrocodone Bitart ([place] (7.5-325)) 2 tab Q4H PRN PO PAIN LEVEL 7-10 Last administered on 02/04/17 18:38; Admin Dose 2 TAB; Start at 12:30 Hydromorphone HCl (Dilaudid) 1 mg Q3 PRN IV PAIN Last administered on 08:45; Admin Dose 1 MG; Start 02/01/17 at 17:37 Alprazolam (Xanax) 0.5 mg Q8 PO Last administered on 02/06/17 06:16; Admin Dose 0.5 MG; Start 02/01/17 at 22:00 Nicotine (Nicoderm 14 Mg/ 24hr) 1 patch DAILY TRANSDERM ; Start 02/01/17 at 18: 30 Mirtazapine (Remeron) 15 mg HS PO Last administered on 02/05/17 20:44; Admin Dose 15 MG; Start 02/02/17 at 21:00 Tizanidine HCl (Zanaflex) 2 mg TID PO Last administered on 02/06/17 08:44; Admin Dose 2 MG; Start 02/03/17 at 21:00 Pramipexole (Mirapex) 0.125 mg HS PO Last administered on 02/05/17 20:44; Admin Dose 0.125 MG; Start 02/04/17 at 21:00 Gabapentin (Neurontin) 400 mg BID PO Last administered on 02/06/17 08:51; Admin Dose 400 MG; Start 02/05/17 at 21:00 AMBER CLIFFORD MD Feb 06, 2017 09:15
[2017-02-06 20:00] VITALS: BP 131/81; PULSE 95; RESP 16
--- NOTE | 2017-02-06 22:37 | PN ---
Date/Time of Note Date/Time of Note DATE: 02/06/17 TIME: 22:35 Assessment/Plan VTE Prophylaxis VTE Prophylaxis Intervention: heparin Lines/Catheters [facility] Urinary Cath still in place: No Assessment/Plan Problems: (1) S/P lumbar spinal fusion Onset Date: ~ 01/27/2017 Status: Acute Comment: He is progressing with physical therapy at a somewhat slower but steady pace. Continue current treatment and I do believe he is ready for discharge and management at home. (2) Benzodiazepine dependence Status: Chronic Comment: He is on a stable dosage. (3) Anxiety disorder Status: Chronic Comment: His anxiety disorder is still a significant issue. At this time Qualifiers: Anxiety disorder type: generalized anxiety disorder Qualified Code: F41.1 - Generalized anxiety disorder (4) Persistent disorder of initiating or maintaining sleep Status: Chronic Comment: Modestly improved. Please note given the chronicity of this significant rapid sequence improvements that this would not be a reasonable expectation. Subjective 24 Hr Interval Summary Free Text/Dictation Complains of the sensation of pain down the posterior leg left greater than right. This is from the area of the hips to the knee and does not extend further is different than the symptoms he had on admission. Constitutional: no complaints Respiratory: no complaints Cardiovascular: no complaints Gastrointestinal: no complaints Exam/Review of Systems Vital Signs Vitals Vital Signs Date Time Temp Pulse Resp B/P Pulse Ox O2 Delivery O2 Flow Rate FiO2 02/06/17 07:00 99.4 99 18 122/81 99 Intake and Output 02/05/17 02/05/17 02/06/17 15:00 23:00 07:00 Intake Total 1200 ml 390 ml Output Total 800 ml 800 ml Balance 400 ml -410 ml Exam Constitutional: alert, oriented Respiratory: clear to auscultation, normal air movement Cardiovascular: nl pulses, regular rate and rhythm Medications Medications Current Medications Naloxone HCl (Narcan) 0.2 mg Q2M PRN IV DECREASED REPIRATORY RATE; Start 01/31 at 16:30 Ondansetron HCl (Zofran Inj) 4 mg Q6H PRN IV NAUSEA AND/OR VOMITING; Start at 16:30 Oxycodone HCl (Oxycontin) 20 mg BID PO Last administered on 02/06/17t 08:44; Admin Dose 20 MG; Start 01/31/17 at 21:00 Prochlorperazine (Compazine) 10 mg Q4H PRN PO NAUSEA AND/OR VOMITING; Start at 17:00 Acetaminophen (Tylenol Tab) 650 mg Q4H PRN PO PAIN AND OR ELEVATED TEMP; Start 01/31/17 at 17:00 Alprazolam (Xanax) 0.5 mg Q12H PRN PO ANXIETY Last administered on 02/01/17 06 :13; Admin Dose 0.5 MG; Start 01/31/17 at 17:00 Duloxetine HCl (Cymbalta) 30 mg DAILY PO Last administered on 02/06/17 08:50; Admin Dose 30 MG; Start 02/01/17 at 09:00 Acetaminophen/ Hydrocodone Bitart ([place] (5/325)) 1 tab Q4H PRN PO PAIN LEVEL 1 -5; Start 01/31/17 at 17:00 Acetaminophen/ Hydrocodone Bitart ([place] (5/325)) 2 tab Q4H PRN PO PAIN LEVEL 6 -10 Last administered on 02/01/17 05:56; Admin Dose 2 TAB; Start 01/31/17 at 17:00 Docusate Sodium (Colace) 100 mg BID PO Last administered on 02/06/17 08:51; Admin Dose 100 MG; Start 01/31/17 at 21:00 Senna (Senokot) 1 tab QHS PO Last administered on 02/05/17 20:44; Admin Dose 1 TAB; Start 01/31/17 at 21:00 Bisacodyl (Dulcolax Supp) 10 mg DAILY PRN [place] CONSTIPATION Last administered on 02/03/17 20:00; Admin Dose 10 MG; Start 01/31/17 at 18:00 Magnesium Hydroxide (Milk Of Mag) 30 ml BID PRN PO CONSTIPATION; Start at 18:00 Lactulose (Enulose) 20 gm DAILY PRN PO CONSTIPATION Last administered on 06:12; Admin Dose 20 GM; Start 01/31/17 at 18:00 Acetaminophen/ Hydrocodone Bitart ([place] (7.5-325)) 2 tab Q4H PRN PO PAIN LEVEL 7-10 Last administered on 02/04/17 18:38; Admin Dose 2 TAB; Start at 12:30 Hydromorphone HCl (Dilaudid) 1 mg Q3 PRN IV PAIN Last administered on 22:31; Admin Dose 1 MG; Start 02/01/17 at 17:37 Alprazolam (Xanax) 0.5 mg Q8 PO Last administered on 02/06/17 14:29; Admin Dose 0.5 MG; Start 02/01/17 at 22:00 Nicotine (Nicoderm 14 Mg/ 24hr) 1 patch DAILY TRANSDERM ; Start 02/01/17 at 18: 30 Mirtazapine (Remeron) 15 mg HS PO Last administered on 02/05/17 20:44; Admin Dose 15 MG; Start 02/02/17 at 21:00 Tizanidine HCl (Zanaflex) 2 mg TID PO Last administered on 02/06/17 14:29; Admin Dose 2 MG; Start 02/03/17 at 21:00 Pramipexole (Mirapex) 0.125 mg HS PO Last administered on 02/05/17 20:44; Admin Dose 0.125 MG; Start 02/04/17 at 21:00 Gabapentin (Neurontin) 400 mg BID PO Last administered on 02/06/17 08:51; Admin Dose 400 MG; Start 02/05/17 at 21:00 COLT LISA MD Feb 06, 2017 22:37
--- NOTE | 2017-02-06 22:37 | PN ---
Date/Time of Note Date/Time of Note DATE: 02/06/17 TIME: 22:35 Assessment/Plan VTE Prophylaxis VTE Prophylaxis Intervention: heparin Lines/Catheters IV [facility] Urinary Cath still in place: No Assessment/Plan Problems: (1) S/P lumbar spinal fusion Onset Date: ~ 01/27/2017 Status: Acute Comment: He is progressing with physical therapy at a somewhat slower but steady pace. Continue current treatment and I do believe he is ready for discharge and management at home. (2) Benzodiazepine dependence Status: Chronic Comment: He is on a stable dosage. (3) Anxiety disorder Status: Chronic Comment: His anxiety disorder is still a significant issue. At this time Qualifiers: Anxiety disorder type: generalized anxiety disorder Qualified Code: F41.1 - Generalized anxiety disorder (4) Persistent disorder of initiating or maintaining sleep Status: Chronic Comment: Modestly improved. Please note given the chronicity of this significant rapid sequence improvements that this would not be a reasonable expectation. Subjective 24 Hr Interval Summary Free Text/Dictation Complains of the sensation of pain down the posterior leg left greater than right. This is from the area of the hips to the knee and does not extend further is different than the symptoms he had on admission. Constitutional: no complaints Respiratory: no complaints Cardiovascular: no complaints Gastrointestinal: no complaints Exam/Review of Systems Vital Signs Vitals Vital Signs Date Time Temp Pulse Resp B/P Pulse Ox O2 Delivery O2 Flow Rate FiO2 02/06/17 07:00 99.4 99 18 122/81 99 Intake and Output 02/05/17 02/05/17 02/06/17 15:00 23:00 07:00 Intake Total 1200 ml 390 ml Output Total 800 ml 800 ml Balance 400 ml -410 ml Exam Constitutional: alert, oriented Respiratory: clear to auscultation, normal air movement Cardiovascular: nl pulses, regular rate and rhythm Medications Medications Current Medications Naloxone HCl (Narcan) 0.2 mg Q2M PRN IV DECREASED REPIRATORY RATE; Start 01/31 at 16:30 Ondansetron HCl (Zofran Inj) 4 mg Q6H PRN IV NAUSEA AND/OR VOMITING; Start at 16:30 Oxycodone HCl (Oxycontin) 20 mg BID PO Last administered on 02/06/17t 08:44; Admin Dose 20 MG; Start 01/31/17 at 21:00 Prochlorperazine (Compazine) 10 mg Q4H PRN PO NAUSEA AND/OR VOMITING; Start at 17:00 Acetaminophen (Tylenol Tab) 650 mg Q4H PRN PO PAIN AND OR ELEVATED TEMP; Start 01/31/17 at 17:00 Alprazolam (Xanax) 0.5 mg Q12H PRN PO ANXIETY Last administered on 02/01/17 06 :13; Admin Dose 0.5 MG; Start 01/31/17 at 17:00 Duloxetine HCl (Cymbalta) 30 mg DAILY PO Last administered on 02/06/17 08:50; Admin Dose 30 MG; Start 02/01/17 at 09:00 Acetaminophen/ Hydrocodone Bitart ([place] (5/325)) 1 tab Q4H PRN PO PAIN LEVEL 1 -5; Start 01/31/17 at 17:00 Acetaminophen/ Hydrocodone Bitart ([place] (5/325)) 2 tab Q4H PRN PO PAIN LEVEL 6 -10 Last administered on 02/01/17 05:56; Admin Dose 2 TAB; Start 01/31/17 at 17:00 Docusate Sodium (Colace) 100 mg BID PO Last administered on 02/06/17 08:51; Admin Dose 100 MG; Start 01/31/17 at 21:00 Senna (Senokot) 1 tab QHS PO Last administered on 02/05/17 20:44; Admin Dose 1 TAB; Start 01/31/17 at 21:00 Bisacodyl (Dulcolax Supp) 10 mg DAILY PRN [place] CONSTIPATION Last administered on 02/03/17 20:00; Admin Dose 10 MG; Start 01/31/17 at 18:00 Magnesium Hydroxide (Milk Of Mag) 30 ml BID PRN PO CONSTIPATION; Start at 18:00 Lactulose (Enulose) 20 gm DAILY PRN PO CONSTIPATION Last administered on 06:12; Admin Dose 20 GM; Start 01/31/17 at 18:00 Acetaminophen/ Hydrocodone Bitart ([place] (7.5-325)) 2 tab Q4H PRN PO PAIN LEVEL 7-10 Last administered on 02/04/17 18:38; Admin Dose 2 TAB; Start at 12:30 Hydromorphone HCl (Dilaudid) 1 mg Q3 PRN IV PAIN Last administered on 22:31; Admin Dose 1 MG; Start 02/01/17 at 17:37 Alprazolam (Xanax) 0.5 mg Q8 PO Last administered on 02/06/17 14:29; Admin Dose 0.5 MG; Start 02/01/17 at 22:00 Nicotine (Nicoderm 14 Mg/ 24hr) 1 patch DAILY TRANSDERM ; Start 02/01/17 at 18: 30 Mirtazapine (Remeron) 15 mg HS PO Last administered on 02/05/17 20:44; Admin Dose 15 MG; Start 02/02/17 at 21:00 Tizanidine HCl (Zanaflex) 2 mg TID PO Last administered on 02/06/17 14:29; Admin Dose 2 MG; Start 02/03/17 at 21:00 Pramipexole (Mirapex) 0.125 mg HS PO Last administered on 02/05/17 20:44; Admin Dose 0.125 MG; Start 02/04/17 at 21:00 Gabapentin (Neurontin) 400 mg BID PO Last administered on 02/06/17 08:51; Admin Dose 400 MG; Start 02/05/17 at 21:00 COLT LISA MD Feb 06, 2017 22:37
--- NOTE | 2017-02-06 22:37 | PN ---
Date/Time of Note Date/Time of Note DATE: 02/06/17 TIME: 22:35 Assessment/Plan VTE Prophylaxis VTE Prophylaxis Intervention: heparin Lines/Catheters IV [facility] Type [facility]from [email or web address] Urinary Cath still in place: No Assessment/Plan Problems: (1) S/P lumbar spinal fusion Onset Date: ~ 01/27/2017 Status: Acute Comment: He is progressing with physical therapy at a somewhat slower but steady pace. Continue current treatment and I do believe he is ready for discharge and management at home. (2) Benzodiazepine dependence Status: Chronic Comment: He is on a stable dosage. (3) Anxiety disorder Status: Chronic Comment: His anxiety disorder is still a significant issue. At this time Qualifiers: Anxiety disorder type: generalized anxiety disorder Qualified Code: F41.1 - Generalized anxiety disorder (4) Persistent disorder of initiating or maintaining sleep Status: Chronic Comment: Modestly improved. Please note given the chronicity of this significant rapid sequence improvements that this would not be a reasonable expectation. Subjective 24 Hr Interval Summary Free Text/Dictation Complains of the sensation of pain down the posterior leg left greater than right. This is from the area of the hips to the knee and does not extend further is different than the symptoms he had on admission. Constitutional: no complaints Respiratory: no complaints Cardiovascular: no complaints Gastrointestinal: no complaints Exam/Review of Systems Vital Signs Vitals Vital Signs Date Time Temp Pulse Resp B/P Pulse Ox O2 Delivery O2 Flow Rate FiO2 02/06/17 07:00 99.4 99 18 122/81 99 Intake and Output 02/05/17 02/05/17 02/06/17 15:00 23:00 07:00 Intake Total 1200 ml 390 ml Output Total 800 ml 800 ml Balance 400 ml -410 ml Exam Constitutional: alert, oriented Respiratory: clear to auscultation, normal air movement Cardiovascular: nl pulses, regular rate and rhythm Medications Medications Current Medications Naloxone HCl (Narcan) 0.2 mg Q2M PRN IV DECREASED REPIRATORY RATE; Start 01/31 at 16:30 Ondansetron HCl (Zofran Inj) 4 mg Q6H PRN IV NAUSEA AND/OR VOMITING; Start at 16:30 Oxycodone HCl (Oxycontin) 20 mg BID PO Last administered on 02/06/17t 08:44; Admin Dose 20 MG; Start 01/31/17 at 21:00 Prochlorperazine (Compazine) 10 mg Q4H PRN PO NAUSEA AND/OR VOMITING; Start at 17:00 Acetaminophen (Tylenol Tab) 650 mg Q4H PRN PO PAIN AND OR ELEVATED TEMP; Start 01/31/17 at 17:00 Alprazolam (Xanax) 0.5 mg Q12H PRN PO ANXIETY Last administered on 02/01/17 06 :13; Admin Dose 0.5 MG; Start 01/31/17 at 17:00 Duloxetine HCl (Cymbalta) 30 mg DAILY PO Last administered on 02/06/17 08:50; Admin Dose 30 MG; Start 02/01/17 at 09:00 Acetaminophen/ Hydrocodone Bitart ([place] (5/325)) 1 tab Q4H PRN PO PAIN LEVEL 1 -5; Start 01/31/17 at 17:00 Acetaminophen/ Hydrocodone Bitart ([place] (5/325)) 2 tab Q4H PRN PO PAIN LEVEL 6 -10 Last administered on 02/01/17 05:56; Admin Dose 2 TAB; Start 01/31/17 at 17:00 Docusate Sodium (Colace) 100 mg BID PO Last administered on 02/06/17 08:51; Admin Dose 100 MG; Start 01/31/17 at 21:00 Senna (Senokot) 1 tab QHS PO Last administered on 02/05/17 20:44; Admin Dose 1 TAB; Start 01/31/17 at 21:00 Bisacodyl (Dulcolax Supp) 10 mg DAILY PRN [place] CONSTIPATION Last administered on 02/03/17 20:00; Admin Dose 10 MG; Start 01/31/17 at 18:00 Magnesium Hydroxide (Milk Of Mag) 30 ml BID PRN PO CONSTIPATION; Start at 18:00 Lactulose (Enulose) 20 gm DAILY PRN PO CONSTIPATION Last administered on 06:12; Admin Dose 20 GM; Start 01/31/17 at 18:00 Acetaminophen/ Hydrocodone Bitart ([place] (7.5-325)) 2 tab Q4H PRN PO PAIN LEVEL 7-10 Last administered on 02/04/17 18:38; Admin Dose 2 TAB; Start at 12:30 Hydromorphone HCl (Dilaudid) 1 mg Q3 PRN IV PAIN Last administered on 22:31; Admin Dose 1 MG; Start 02/01/17 at 17:37 Alprazolam (Xanax) 0.5 mg Q8 PO Last administered on 02/06/17 14:29; Admin Dose 0.5 MG; Start 02/01/17 at 22:00 Nicotine (Nicoderm 14 Mg/ 24hr) 1 patch DAILY TRANSDERM ; Start 02/01/17 at 18: 30 Mirtazapine (Remeron) 15 mg HS PO Last administered on 02/05/17 20:44; Admin Dose 15 MG; Start 02/02/17 at 21:00 Tizanidine HCl (Zanaflex) 2 mg TID PO Last administered on 02/06/17 14:29; Admin Dose 2 MG; Start 02/03/17 at 21:00 Pramipexole (Mirapex) 0.125 mg HS PO Last administered on 02/05/17 20:44; Admin Dose 0.125 MG; Start 02/04/17 at 21:00 Gabapentin (Neurontin) 400 mg BID PO Last administered on 02/06/17 08:51; Admin Dose 400 MG; Start 02/05/17 at 21:00 COLT LISA MD Feb 06, 2017 22:37
[2017-02-07] MEDS: HYDROCODONE/APAP (5/325) TAB PO PRN (00:59)
[2017-02-07] MEDS: HYDROmorphONE 1 MG/ML SYG IV PRN ×3 (03:00→10:00)
[2017-02-07 05:00] VITALS: BP 120/76; PULSE 76; RESP 16
[2017-02-07] MEDS: ALPRAZOLAM 0.5 MG TAB PO SCH (07:22)
[2017-02-07 07:30] VITALS: BP 130/91; RESP 18
[2017-02-07] MEDS: TIZANIDINE 2 MG TAB PO SCH ×2 (08:20→09:00)
[2017-02-07] MEDS: DULOXETINE 30 MG CAP DR PO SCH (08:20)
[2017-02-07] MEDS: oxyCODONE (CR) 10 MG TAB [oxyCONTIN] PO SCH ×2 (08:21→09:00)
[2017-02-07] MEDS: GABAPENTIN 400 MG CAP PO SCH ×2 (08:21→09:00)
[2017-02-07] MEDS: NICOTINE (14 MG/24 HR) PATCH TRANSDERM SCH (09:00)
[2017-02-07] MEDS: DOCUSATE SODIUM 100 MG CAP PO SCH (09:00)
[2017-02-07] MEDS: LACTULOSE 30ML CUP PO PRN (10:14)
--- NOTE | 2017-02-07 12:27 | DS ---
Date/Time of Note Date/Time of Note DATE: 02/07/17 TIME: 12:25 Discharge Summary Admission/Discharge Info Admit Date/Time Jan 31, 2017 at 15:38 Discharge Date/Time Discharge Diagnosis 1.Lumbar degenerative disk disease and spinal stenosis with radiculopathy, status post lumbar fusion. 2. Acute pain syndrome. 3. Anxiety. 4. Improvements in self-care and mobility. Patient Condition: Good Hospital Course Patient was admitted for comprehensive interdisciplinary acute rehabilitation. Patient made steady functional gains and improved from a mod level to a Modified Independent level for self care and mobility, including ambulating over 200 feet. Patient is being discharged home with recommendations for home health PT and OT follow up. DME recommendations: FWW; BSC; Shower Chair Patient will follow up with PMD upon DC. Home Meds Reported Medications Tramadol HCl (Tramadol HCl) 50 Mg Tablet, 50 MG PO Q6 Y for PAIN, #120 TAB 01/27/17 Hydrocodone/Acetaminophen (Hydrocodon-Acetaminoph 7.5-325) 1 Each Tablet, 1 EACH PO, TAB 01/27/17 Alprazolam* (Xanax*) 0.5 Mg Tab, 0.5 MG PO Q12 Y for ANXIETY, TAB 01/27/17 Primary Care Provider Not On Staff Doctor AMBER CLIFFORD MD Feb 07, 2017 12:27
== END 2017-02-07 11:43 | disposition home health service (06) | DRG 560 ==
LOC: VRC 15:38
PROVIDERS: ADMIT Physical Medicine & Rehabilitation; ATTEND Internal Medicine
DX: Z47.89 Encounter for other orthopedic aftercare (principal); F13.20 Sedative, hypnotic or anxiolytic dependence, uncomplicated; F41.1 Generalized anxiety disorder; Z74.09 Other reduced mobility; Z72.0 Tobacco use; G89.18 Other acute postprocedural pain; G47.00 Insomnia, unspecified; G25.81 Restless legs syndrome
CPT/HCPCS: 80053; 81003; 85025; 87081; 87086; 90686; 97110; 97112; 97116; 97163; 97167; 97530; 97535; J1170